=== PATIENT | male | born 1970 | race Caucasian/White ===

== ENCOUNTER 2016-12-14 21:20 | Emergency (ER) | payer OTHER, MEDICARE ==
[~2016-12-14 21:20] MED LIST: ACETAMINOPHEN-1 EAC3 PO; BENADRYL ALLERG25 MG PO; BENZTROPINE1 MG PO; BUSPIRONE HCL10 MG PO; CALCIPOTRIENE0.0051 TOP; DEXILANT60 M1 PO; EPI-PEN1 MG/ML IM; FOLIC ACID0.4 M1 PO; HALOBETASOL PRO0.05% TOP; KETOCONAZOLE 2120 ML TOP; MELOXICAM15 MG PO; METHOTREXATE2.5 M2 PO; NEURONTIN100 MG PO; PREDNISONE20 MG PO; SERTRALINE HYD100 MG PO; SUCRALFATE1 G1 PO; VALIUM5 M1 PO; VITAMIN D2000 UNI1 PO
[2016-12-14 21:24] VITALS: BP 154/70
--- NOTE | 2016-12-14 21:24 | ED AMS/SEIZURE/WEAK/DIZZY ---
History of Present Illness General Chief Complaint: Seizure Stated Complaint: BIBA ?SEIZURELIKE ACTIVITY WITH FALL Source: patient, family, old records Exam Limitations: no limitations Vital Signs & Intake/Output Vital Signs & Intake/Output Vital Signs Date Time Temp Pulse Resp B/P Pulse O2 O2 Flow FiO2 Ox Delivery Rate 12/14 2140 99 Room Air 12/14 2123 98.4 84 18 154/70 93 Room Air Allergies Coded Allergies: hydroxychloroquine (From PLAQUENIL) (Intermediate, SWEATS AND CHILLS 10/21/16) venom-honey bee (BEE VENOM (HONEY BEE)) (Intermediate, LOCAL REACTION 10/21/16) atenolol (Mild, RASH 10/21/16) labetalol (Mild, RASH 10/21/16) pimozide (From ORAP) (ELEVATED HR 10/21/16) lorazepam (Severe, HALLUCINATIONS AND AGRESSIVE BEHAVIOR 10/21/16) bupropion (Intermediate, TACHYCARDIA, ANXIETY 10/21/16) haloperidol (MAKES HIM JUMPY 10/21/16) Reconcile Medications Cholecalciferol (Vitamin D3) (Vitamin D) 2,000 UNIT TABLET 1 TAB PO DAILY SUPPLEMENT (Reported) Dexlansoprazole (Dexilant) 60 MG CAP.BP 1 CAP PO DAILY GI (Reported) Diazepam (Valium) 5 MG TABLET 1-2 TAB PO PRN ANXIETY (Reported) Folic Acid 0.4 MG TAB 3 TAB PO DAILY SUPPLEMENT (Reported) Meloxicam 15 MG TABLET 1 TAB PO DAILY ARTHRITIS (Reported) METHOTREXATE SODIUM (Methotrexate) 2.5 MG TABLET 3 TAB PO ONCE A WEEK ARTHRITIS (Reported) SERTRALINE HCL (Sertraline Hydrochloride) 100 MG TABLET 2 TAB PO DAILY MENTAL HEALTH (Reported) Sucralfate 1 GRAM TABLET 1 TAB PO 4 TIMES/DAY GI (Reported) Triage Nurses Notes Reviewed? yes Onset: Abrupt Duration: minute(s): (FEW) Timing: single episode today Injury Environment: home Severity: moderate No Modifying Factors: none HPI: This is a 46 year old male who presents to the ER with seizure like activity that started while in the grocery store buying milk. EMS arrived on scene and tried to give him valium which he refused. 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 He arrives awake, alert but slightly anxious. He states that he feels okay and wants to go home. He states he will call his to come and pick him up. Past History Travel History Traveled to [place] past 21 day No Medical History Any Pertinent Medical History? 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 No Review of Systems Review of Systems Constitutional: Denies: chills, fever. EENTM: Reports: no symptoms. Respiratory: Denies: cough, short of breath, sputum production. Cardiovascular: Denies: chest pain, palpitations. GI: Denies: abdominal pain. Genitourinary: Reports: no symptoms. Musculoskeletal: Reports: no symptoms. Skin: Reports: no symptoms. Neurological/Psychological: Reports: anxiety, tremors. Hematologic/Endocrine: Denies: bruising, bleeding, polyuria, polydipsia. Immunologic/Allergic: Denies: splenectomy. All Other Systems: Reviewed and Negative Physical Exam Physical Exam General Appearance: well developed/nourished, alert, awake, anxious, mild distress Head: atraumatic, normal appearance Eyes: Bilateral: normal appearance, PERRL, EOMI. Ears, Nose, Throat: normal pharynx, normal ENT inspection, hearing grossly normal Neck: normal inspection, supple, full range of motion Respiratory: normal breath sounds, chest non-tender, no respiratory distress Cardiovascular: regular rate/rhythm Peripheral Pulses: 2+ radial (R), 2+ radial (L) Gastrointestinal: soft, non-tender Neurologic/Psych: no motor/sensory deficits, awake, alert, oriented x 3, normal gait, anxious, stuttering Skin: intact, normal color, warm/dry Core Measures ACS in differential dx? No CVA/TIA Diagnosis: No Severe Sepsis Present: No Septic Shock Present: No Progress Differential Diagnosis: PSEUDOSEIZURES, ANXIETY Plan of Care: Current Medications Sig/Juli Start time Last Medication Dose Stop Time Status Admin Acetaminophen 650 MG ONCE ONE 12/14 2144 UNVr (Tylenol) 12/14 2145 Patient awake and alert on arrival, stuttering. He states that he does not want to take the oral volume. Patient requests 650 mg of Tylenol. He states that he is tired and wants to go home and wants to call his fiance. Patient feeling tired and wants to go home. He states that he has a history of pseudoseizures. His will pick him up as soon as he is discharged. (NALINI HERNANDEZ,ERIC) Initial ED EKG: none Departure Departure Time of Disposition: 2153 Disposition: HOME OR SELF CARE Condition: Stable Clinical Impression Primary Impression: Pseudoseizure Referrals: LUIS E HERNANDEZ,ELIZABETH Lugo (PCP/Family) Additional Instructions: Continue your regularly prescribed medications. Follow up with your doctor as needed. Departure Forms: Customer Survey General Discharge Information
== END 2016-12-14 22:06 ==
LOC: ERH 21:20
DX: R56.9 Unspecified convulsions (principal)
CPT/HCPCS: J3360

== ENCOUNTER 2016-12-22 10:58 | Emergency (ER) | payer OTHER, MEDICARE ==
[~2016-12-22] VITALS: Ht 190.5 cm; Wt 154.2 kg
--- NOTE | 2016-12-22 11:21 | ED AMS/SEIZURE/WEAK/DIZZY ---
History of Present Illness General Chief Complaint: Seizure Stated Complaint: BIBA FOR ?SEIZURE Source: patient, old records Exam Limitations: no limitations Vital Signs & Intake/Output Vital Signs & Intake/Output Vital Signs Date Time Temp Pulse Resp B/P Pulse O2 O2 Flow FiO2 Ox Delivery Rate 12/22 1239 96.0 79 18 138/73 96 Room Air 12/22 1101 97.9 93 20 134/76 92 Room Air Allergies Coded Allergies: hydroxychloroquine (From PLAQUENIL) (Intermediate, SWEATS AND CHILLS 12/22/16) venom-honey bee (BEE VENOM (HONEY BEE)) (Intermediate, LOCAL REACTION 12/22/16) atenolol (Mild, RASH 12/22/16) labetalol (Mild, RASH 12/22/16) pimozide (From ORAP) (ELEVATED HR 12/22/16) lorazepam (Severe, HALLUCINATIONS AND AGRESSIVE BEHAVIOR 12/22/16) bupropion (Intermediate, TACHYCARDIA, ANXIETY 12/22/16) haloperidol (MAKES HIM JUMPY 12/22/16) Reconcile Medications Cholecalciferol (Vitamin D3) (Vitamin D) 2,000 UNIT TABLET 1 TAB PO DAILY SUPPLEMENT (Reported) Dexlansoprazole (Dexilant) 60 MG CAP.DR.BP 1 CAP PO DAILY GI (Reported) Diazepam (Valium) 5 MG TABLET 1-2 TAB PO PRN ANXIETY (Reported) Folic Acid 0.4 MG TAB 3 TAB PO DAILY SUPPLEMENT (Reported) Meloxicam 15 MG TABLET 1 TAB PO DAILY ARTHRITIS (Reported) METHOTREXATE SODIUM (Methotrexate) 2.5 MG TABLET 3 TAB PO ONCE A WEEK ARTHRITIS (Reported) SERTRALINE HCL (Sertraline Hydrochloride) 100 MG TABLET 2 TAB PO DAILY MENTAL HEALTH (Reported) Sucralfate 1 GRAM TABLET 1 TAB PO 4 TIMES/DAY GI (Reported) Triage Note: PT BIBA TO [facility] RM 2 C/C SEIZURE. PMHX INCLUDES PSEUDO SEIZURES TRIGGERED BY STRESS. PER REPORT OF EMS PATIENT WAS PICKED UP FROM [facility]IGH [facility] WHERE HE WAS HAVING A MEETING REGUARDING HIS SON. STATES HE STOOD UP TO LEAVE AND HIS L LEG GAVE OUT ON HIM CAUSING HIM TO FALL BACKWARDS, HITTING HIS HEAD ON THE WALL AND FLOOR. COMPLAINS OF PAIN TO HEAD AND NECK BUT IS UNABLE TO FURTHER RATE OR DESCRIBE PAIN. DENIES LOC FROM FALL BUT DID HAVE SEIZURE AFTERWARDS. PT ALERT, VERBAL AND ANSWERS ALL QUESTIONS APPROPRIATELY ON ARRIVAL TO ER. COBY STUDENT AT BEDSIDE FOR EVAL ON ARRIVAL TO ER. Triage Nurses Notes Reviewed? yes HPI: 46-year-old male in by ambulance after a reported pseudoseizure. He was at a meeting at his son's school and after the meeting his left leg gave out on him due to his chronic nerve pain and he fell to the ground, he had a short pseudoseizure and struck the left side of the back of his head on the ground. Pseudoseizure lasted a few seconds and an ambulance was called to bring him to the hospital. He has complaints of mild left-sided posterior head pain and headache, mild nausea. No vomiting no confusion no loss of consciousness. He is well-known to this department for same. There are no other injuries no treatment thus far no modifying factors no photophobia. No weakness or numbness in the extremities (CINDY FERNANDEZ) Past History Travel History Traveled to [place] past 21 day No Medical History Any Pertinent Medical History? 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 No (CINDY FERNANDEZ) Review of Systems Review of Systems Constitutional: Reports: see HPI. EENTM: Reports: no symptoms. Respiratory: Reports: no symptoms. Cardiovascular: Reports: no symptoms. GI: Reports: no symptoms. Genitourinary: Reports: no symptoms. Musculoskeletal: Reports: no symptoms. Skin: Reports: no symptoms. Neurological/Psychological: Reports: see HPI, anxiety. Hematologic/Endocrine: Reports: no symptoms. Immunologic/Allergic: Reports: no symptoms. All Other Systems: Reviewed and Negative (CINDY FERNANDEZ) Physical Exam Physical Exam General Appearance: well developed/nourished Comments: Well-developed well-nourished person in no acute distress HEENT: Normal EENT exam, extraocular motion intact, no nystagmus. Pupils equally round and reactive to light. Nose is atraumatic. External auditory canal and Tympanic membranes clear. Pharynx normal. No swelling or edema. Tenderness to the posterior left-sided occipital region without swelling or ecchymosis Neck: Supple, no lymphadenopathy, normal range of motion . Mild pain with palpation of the left side of the neck paravertebral musculature Back: Nontender, no CVA tenderness. Cardiovascular: Regular rate and rhythms no murmurs, normal JVP Respiratory: Chest nontender. No respiratory distress. Breath sounds clear to auscultation bilaterally Abdomen: Soft, nontender nondistended, no appreciable organomegaly. Normal bowel sounds. No ascites Extremity: No edema, no calf tenderness to palpation, normal and equal pulses. Neuro: Alert oriented x3, motor sensory normal, cranial nerves II through XII grossly intact. Skin: No appreciable rash on exposed skin, skin is warm and dry. Psych: Mood and affect is normal, memory and judgment is normal. Core Measures ACS in differential dx? No CVA/TIA Diagnosis: No Severe Sepsis Present: No Septic Shock Present: No (CINDY FERNANDEZ) Progress Differential Diagnosis: arrythmia, alcohol intoxication, anemia, benign positional vertigo, CVA/stroke, dehydration, drug intoxication, encephalitis, electrolyte imbalance, GI bleed, hypoglycemia, hypoxia, intracranial Hem., intracranial mass/tumor, labrynthitis, meningitis, Meniere's disease, migraine BARRERA, multiple sclerosis, pneumonia, postural hypotension, presyncope, post- traumatic vertigo, sepsis, seizure disorder, subarachnoid Hem., UTI/pyelo, vertebrobasilar insuff Plan of Care: Current Medications Sig/Juli Start time Last Medication Dose Stop Time Status Admin Acetaminophen 650 MG ONCE ONE 12/220 UNVr (Tylenol) 12/22 1131 Ondansetron HCl 4 MG ONCE ONE 12/220 UNVr (Zofran) 12/22 1131 Initial ED EKG: none Comments: tx w tylenol and zofran. re evaluated and pt is sleeping in room, resting comfortably after 1 hr of monitoring. barrera has improved, nausea resolved. i do not feel workup or ct of head is indicated at this time. he will return w any concerns. (CINDY FERNANDEZ) Departure Departure Disposition: HOME OR SELF CARE Condition: Stable Clinical Impression Primary Impression: Pseudoseizure Secondary Impressions: Fall Qualifiers: Encounter type: initial encounter Qualified Code: W19.XXXA - Unspecified fall, initial encounter Minor head injury Qualifiers: Encounter type: initial encounter Qualified Code: S00.90XA - Unspecified superficial injury of unspecified part of head, initial encounter Referrals: ELIZABETH KIMBROUGH MD (PCP/Family) Additional Instructions: Return to the emergency room if you're feeling worsening or severe headaches, nausea, vomiting, confusion. You may take Tylenol for pain. Follow-up with your doctor if you're not feeling any better in the next 3-5 days. Departure Forms: Customer Survey General Discharge Information (CINDY FERNANDEZ) PA/BYPRODUCTS EXTRACTOR Co-Sign Statement Statement: ED Attending supervision documentation- [] I saw and evaluated the patient. I have also reviewed all the pertinent lab results and diagnostic results. I agree with the findings and the plan of care as documented in the PA's/BYPRODUCTS EXTRACTOR's documentation. [X] I have reviewed the ED Record and agree with the PA's/BYPRODUCTS EXTRACTOR's documentation. [] Additions or exceptions (if any) to the PAs/BYPRODUCTS EXTRACTOR's note and plan are summarized below: [] (HAN SALOMON DO)
[2016-12-22 12:39] VITALS: BP 138/73
== END 2016-12-22 12:45 ==
LOC: ERH 10:58
DX: G40.89 Other seizures (principal); S09.90XA Unspecified injury of head, initial encounter; W19.XXXA Unspecified fall, initial encounter
CPT/HCPCS: 96374; J2405

== ENCOUNTER 2017-02-17 15:09 | Emergency (ER) | payer OTHER, MEDICARE ==
[~2017-02-17] VITALS: Ht 190.5 cm; Wt 149.7 kg
[2017-02-17 15:19] VITALS: BP 156/80
--- NOTE | 2017-02-17 16:31 | ED GENERAL ADULT ---
History of Present Illness General Chief Complaint: General Adult Stated Complaint: MED REACTION Source: patient, family, old records Exam Limitations: no limitations Vital Signs & Intake/Output Vital Signs & Intake/Output Vital Signs Date Time Temp Pulse Resp B/P Pulse O2 O2 Flow FiO2 Ox Delivery Rate 02/17 1638 Room Air 02/17 1519 98.2 92 18 156/80 98 Room Air Allergies Coded Allergies: hydroxychloroquine (From PLAQUENIL) (Intermediate, SWEATS AND CHILLS 12/22/16) venom-honey bee (BEE VENOM (HONEY BEE)) (Intermediate, LOCAL REACTION 12/22/16) atenolol (Mild, RASH 12/22/16) labetalol (Mild, RASH 12/22/16) pimozide (From ORAP) (ELEVATED HR 12/22/16) lorazepam (Severe, HALLUCINATIONS AND AGRESSIVE BEHAVIOR 12/22/16) bupropion (Intermediate, TACHYCARDIA, ANXIETY 12/22/16) haloperidol (MAKES HIM JUMPY 12/22/16) Reconcile Medications Cholecalciferol (Vitamin D3) (Vitamin D) 2,000 UNIT TABLET 1 TAB PO DAILY SUPPLEMENT (Reported) Dexlansoprazole (Dexilant) 60 MG CAP.BP 1 CAP PO DAILY GI (Reported) Diazepam (Valium) 5 MG TABLET 1-2 TAB PO PRN ANXIETY (Reported) Folic Acid 0.4 MG TAB 3 TAB PO DAILY SUPPLEMENT (Reported) Meloxicam 15 MG TABLET 1 TAB PO DAILY ARTHRITIS (Reported) METHOTREXATE SODIUM (Methotrexate) 2.5 MG TABLET 3 TAB PO ONCE A WEEK ARTHRITIS (Reported) SERTRALINE HCL (Sertraline Hydrochloride) 100 MG TABLET 2 TAB PO DAILY MENTAL HEALTH (Reported) Sucralfate 1 GRAM TABLET 1 TAB PO 4 TIMES/DAY GI (Reported) Triage Note: RECEIVED 46 YO MALE RECENTLY D/C'D FROM [facility] THIS MONDAY, HAD MEDS RE-ADJUSTED. PT REPORTS FEELING OFF/FUNNY, LIKE EVERYTHING IS NOT CONNECTED RIGHT. PT DENIES SI/HI. PT REPORTS COMBINATION OF PHYSICAL AND MENTAL, FEELS OFF BALANCE, HEAD IS FOGGY. Triage Nurses Notes Reviewed? yes HPI: Patient with a history of anxiety and pseudoseizure, presents not feeling well. He states he feels like he is in a fog. He had a recent admission to [facility] behavioral health care inpatient department on January 29 and he had a significant change in his medication. Previously he was on Zoloft and Valium as needed and currently, his medication was changed to now he is currently on an escalating dose of lithium ER and immediate release, Seroquel twice a day, gabapentin twice a day, methotrexate and DEXILANT, . He feels as though the medication is too much for him. He feels groggy and having difficult time functioning and feels as though something may be wrong with him because of the medication. He denies any fever or flulike illness. He denies any numbness or focal weakness. He states his appetite has been good. He states he has a history of elevated LFTs (CINDY FERNANDEZ) Past History Travel History Traveled to [place] past 21 day No Medical History Any Pertinent Medical History? 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 No (CINDY FERNANDEZ) Review of Systems Review of Systems Constitutional: Reports: see HPI. EENTM: Reports: no symptoms. Respiratory: Reports: no symptoms. Cardiovascular: Reports: no symptoms. GI: Reports: no symptoms. Genitourinary: Reports: no symptoms. Musculoskeletal: Reports: no symptoms. Skin: Reports: no symptoms. Neurological/Psychological: Reports: see HPI. Hematologic/Endocrine: Reports: no symptoms. Immunologic/Allergic: Reports: no symptoms. All Other Systems: Reviewed and Negative (CINDY FERNANDEZ) Physical Exam Physical Exam General Appearance: well developed/nourished Comments: Well-developed well-nourished person in no acute distress HEENT: Normal EENT exam, extraocular motion intact, no nystagmus. Pupils equally round and reactive to light. Nose is atraumatic. Pharynx normal. No swelling or edema. Neck: Supple, no lymphadenopathy, normal range of motion without pain or tenderness Back: Nontender, no CVA tenderness. Full range of motion Cardiovascular: Regular rate and rhythms no murmurs, normal JVP Respiratory: Chest nontender. No respiratory distress. Breath sounds clear to auscultation bilaterally Abdomen: Obese, Soft, nontender nondistended, no appreciable organomegaly. Normal bowel sounds. No ascites Extremity: No edema, no calf tenderness to palpation, normal and equal pulses. Neuro: Gait is normal. Alert oriented x3, motor sensory normal, cranial nerves II through XII grossly intact. Skin: No appreciable rash on exposed skin, skin is warm and dry. Psych: Mood and affect is normal, memory and judgment is normal. Core Measures ACS in differential dx? No CVA/TIA Diagnosis: No Severe Sepsis Present: No Septic Shock Present: No (CINDY FERNANDEZ) Progress Differential Diagnoses I considered the following diagnoses in my evaluation of the patient: Plan of Care: Orders Procedure Date/time Status LITHIUM 02/17 1625 Complete COMPREHENSIVE METABOLIC PANEL 02/17 1625 Complete CBC WITHOUT DIFFERENTIAL 02/17 1625 Complete Laboratory Tests 02/17/17 1632: Anion Gap 11, Estimated GFR > 60, BUN/Creatinine Ratio 21.3, Glucose 114 H, Calcium 9.3, Total Bilirubin 0.4, AST 50, ALT 94 H, Alkaline Phosphatase 93, Total Protein 7.3, Albumin 4.0, Globulin 3.3, Albumin/Globulin Ratio 1.2, CBC w Diff NO MAN DIFF REQ, RBC 4.78, MCV 89.9, MCH 29.6, RDW 13.4, MPV 8.6, Gran % 56.2, Lymphocytes % 34.8, Monocytes % 6.7, Eosinophils % 2.0, Basophils % 0.3, Absolute Granulocytes 4.1, Absolute Lymphocytes 2.6, Absolute Monocytes 0.5, Absolute Eosinophils 0.2, Absolute Basophils 0, PUBS MCHC 32.9 L, [place] 0.4 L Initial ED EKG: none Comments: Laboratory values are unremarkable. [place] level is subtherapeutic. Kidney function is normal. Likely patient is having an adverse reaction to the medication (likely Seroquel), possibly causing drowsiness and lethargy as he has fallen asleep in the stretcher here in the emergency department as well. I discussed this with patient and his , I recommended they call his mental health physician for further evaluation and possible medication adjustment. (CINDY FERNANDEZ) Departure Departure Disposition: HOME OR SELF CARE Condition: Stable Clinical Impression Primary Impression: Adverse reaction to psychostimulant drug Referrals: ELIZABETH KIMBROUGH MD (PCP/Family) Additional Instructions: Please follow up with your mental health physician for possible adjustments in her medication due to adverse reaction. Departure Forms: Customer Survey General Discharge Information (CINDY FERNANDEZ) PA/LICENSED MENTAL HEALTH COUNSELOR Co-Sign Statement Statement: ED Attending supervision documentation- [] I saw and evaluated the patient. I have also reviewed all the pertinent lab results and diagnostic results. I agree with the findings and the plan of care as documented in the PA's/LICENSED MENTAL HEALTH COUNSELOR's documentation. [x] I have reviewed the ED Record and agree with the PA's/LICENSED MENTAL HEALTH COUNSELOR's documentation. [] Additions or exceptions (if any) to the PAs/LICENSED MENTAL HEALTH COUNSELOR's note and plan are summarized below: [] (HAN SALOMON DO) Critical Care Note Critical Care Note Critical Care Time: non-applicable (CINDY FERNANDEZ)
[2017-02-17 16:51] LABS: ABSOLUTE BASOPHIL COUNT 0 /CUMM (0.0-0.2); ABSOLUTE EOSINOPHIL COUNT 0.2 /CUMM (0.0-0.7); ABSOLUTE GRANULOCYTE CT 4.1 /CUMM (1.4-6.5); ABSOLUTE LYMPH COUNT 2.6 /CUMM (1.2-3.4); ABSOLUTE MONOCYTE COUNT 0.5 /CUMM (0.10-0.60); BASOPHIL % 0.3 % (0.0-2.0); GRANULOCYTE % 56.2 % (42.2-75.2); MEAN CORPUSCULAR HGB 29.6 PG (27.0-31.0); MEAN CORPUSCULAR HGB CONC 32.9 G/DL (33.0-37.0); MEAN CORPUSCULAR VOLUME 89.9 FL (80.0-94.0); MEAN PLATELET VOLUME 8.6 FL (7.4-10.4); PLATELET COUNT 314 /CUMM (130-400); RBC DISTRIBUTION WIDTH 13.4 % (11.5-14.5); RED BLOOD CELL CT 4.78 /CUMM (4.70-6.10); WHITE BLOOD CELL COUNT 7.4 /CUMM (4.8-10.8)
[2017-02-17 17:01] LABS: LITHIUM 0.4 mmol/L (0.6-1.2)
== END 2017-02-17 17:52 ==
LOC: ERH 15:09
PROVIDERS: Physician Assistant Surgical
DX: T43.605A Adverse effect of unspecified psychostimulants, initial encounter (principal)

== ENCOUNTER 2017-02-27 13:00 | Emergency (ER) | payer OTHER, MEDICARE ==
[2017-02-27 15:31] LABS: ABSOLUTE BASOPHIL COUNT 0 /CUMM (0.0-0.2); ABSOLUTE EOSINOPHIL COUNT 0.1 /CUMM (0.0-0.7); ABSOLUTE GRANULOCYTE CT 5.6 /CUMM (1.4-6.5); ABSOLUTE LYMPH COUNT 2.4 /CUMM (1.2-3.4); ABSOLUTE MONOCYTE COUNT 0.7 /CUMM (0.10-0.60); BASOPHIL % 0.4 % (0.0-2.0); EOSINOPHIL % 1.4 % (0-5); GRANULOCYTE % 63.4 % (42.2-75.2); HEMATOCRIT 42.3 % (42-52); MEAN CORPUSCULAR HGB 29.4 PG (27.0-31.0); MEAN CORPUSCULAR HGB CONC 32.8 G/DL (33.0-37.0); MEAN CORPUSCULAR VOLUME 89.9 FL (80.0-94.0); MEAN PLATELET VOLUME 8.3 FL (7.4-10.4); PLATELET COUNT 349 /CUMM (130-400); RED BLOOD CELL CT 4.71 /CUMM (4.70-6.10); WHITE BLOOD CELL COUNT 8.9 /CUMM (4.8-10.8)
--- NOTE | 2017-02-27 15:39 | ED GENERAL ADULT ---
History of Present Illness General Chief Complaint: Chest Pain Stated Complaint: CHEST PAIN Source: patient, family Exam Limitations: no limitations Vital Signs & Intake/Output Vital Signs & Intake/Output Vital Signs Date Time Temp Pulse Resp B/P Pulse O2 O2 Flow FiO2 Ox Delivery Rate 02/27 1937 97.0 82 18 118/73 98 Room Air 02/27 1728 96.9 85 16 117/70 97 Room Air 02/27 1545 Room Air 02/27 1307 98.0 90 20 141/90 97 Room Air Allergies Coded Allergies: hydroxychloroquine (From PLAQUENIL) (Intermediate, SWEATS AND CHILLS 12/22/16) venom-honey bee (BEE VENOM (HONEY BEE)) (Intermediate, LOCAL REACTION 12/22/16) atenolol (Mild, RASH 12/22/16) labetalol (Mild, RASH 12/22/16) pimozide (From ORAP) (ELEVATED HR 12/22/16) lorazepam (Severe, HALLUCINATIONS AND AGRESSIVE BEHAVIOR 12/22/16) bupropion (Intermediate, TACHYCARDIA, ANXIETY 12/22/16) haloperidol (MAKES HIM JUMPY 12/22/16) Reconcile Medications Cholecalciferol (Vitamin D3) (Vitamin D) 2,000 UNIT TABLET 1 TAB PO DAILY SUPPLEMENT (Reported) Dexlansoprazole (Dexilant) 60 MG CAP.BP 1 CAP PO DAILY GI (Reported) Folic Acid 0.4 MG TABLET 3 TAB PO DAILY SUPPLEMENT (Reported) Gabapentin 100 MG CAPSULE 1 CAP PO BID UNKNOWN (Reported) [place] Carbonate 300 MG CAPSULE 1 CAP PO QAM MENTAL HEALTH (Reported) [place] Carbonate ([place] Carbonate ER) 450 MG TABLET.ER 900 MG PO QPM MENTAL HEALTH (Reported) Methotrexate 2.5 MG TABLET 3 TAB PO QWED PSORIATIC ARTHRITIS (Reported) Quetiapine Fumarate 50 MG TABLET 1 TAB PO BID MENTAL HEALTH (Reported) Quetiapine Fumarate 200 MG TABLET 1 TAB PO QPM MENTAL HEALTH (Reported) Triage Note: PT PRESENTS TO ER C/O OF MIDSTERNAL CHEST PAIN THAT STARTED AT WORK AFTER HE GOT UPSET. PTS THOUGHTS ARE VERY SCATTERED. PT STATES HE WAS RECENTLY STARTED ON LITHIUM AND SEROQUEL AND HE FEELS MORE EVANS. PT DENIES SI/HI Triage Nurses Notes Reviewed? yes Onset: Abrupt Duration: hour(s): Timing: recent history HPI: 02/27/17 4 pm This is a 45-year-old male presents to the emergency department complaining of chest pain. The patient states that he was just returning to work today. He has a history of a seizure disorder and says he is on medications that have made him seizure-free but that he's been very tired. He said he was at work and was upset with the customer that was irritating to the staff. He developed an episode of chest pain; pressure-like. It lasted approximately 20 minutes. Happened approximately 3 hours prior to arrival. The onset of the symptoms were abrupt, the duration was just today, the severity is significant; as his symptoms required him to come to the emergency department for care. On physical exam he does have palpable chest wall tenderness. Past History Travel History Traveled to [place] past 21 day No Medical History Any Pertinent Medical History? 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 No Review of Systems Review of Systems Constitutional: Denies: fever. EENTM: Denies: visual changes. Respiratory: Denies: short of breath. Cardiovascular: Reports: chest pain. GI: Denies: abdominal pain. Genitourinary: Reports: no symptoms. Musculoskeletal: Reports: no symptoms. Skin: Reports: no symptoms. Neurological/Psychological: Reports: see HPI. Denies: headache. Hematologic/Endocrine: Reports: no symptoms. Physical Exam Physical Exam General Appearance: well developed/nourished, alert, awake, anxious, mild distress Head: atraumatic, normal appearance Eyes: Bilateral: normal appearance, PERRL, EOMI. Ears, Nose, Throat: normal pharynx, normal ENT inspection Neck: normal inspection, supple Respiratory: normal breath sounds, no respiratory distress, chest wall tenderness Cardiovascular: regular rate/rhythm Peripheral Pulses: 4+ radial (R), 4+ radial (L) Gastrointestinal: soft, non-tender Back: normal inspection, normal range of motion Extremities: normal inspection, normal range of motion, no edema Neurologic/Psych: no motor/sensory deficits, awake, alert, oriented x 3 Skin: intact, normal color, warm/dry Core Measures ACS in differential dx? No CVA/TIA Diagnosis: No Severe Sepsis Present: No Septic Shock Present: No Progress Differential Diagnoses I considered the following diagnoses in my evaluation of the patient: [Acute coronary syndrome, pneumothorax, adverse drug reaction, anxiety, GERD] Plan of Care: Orders Procedure Date/time Status TROPONIN LEVEL 02/27 182 Complete EKG 02/27 1820 Active TROPONIN LEVEL 02/27 1509 Complete LITHIUM 02/27 1509 Complete COMPREHENSIVE METABOLIC PANEL 02/27 1509 Complete CBC WITHOUT DIFFERENTIAL 02/27 1509 Complete EKG 02/27 1302 Active Laboratory Tests 02/27/17 1820: Troponin I < 0.01 02/27/17 1519: Anion Gap 8, Estimated GFR > 60, BUN/Creatinine Ratio 17.5, Glucose 96, Calcium 9.4, Total Bilirubin 0.4, AST 34, ALT 73 H, Alkaline Phosphatase 90, Troponin I < 0.01, Total Protein 7.5, Albumin 4.2, Globulin 3.3, Albumin/Globulin Ratio 1.3 , CBC w Diff NO MAN DIFF REQ, RBC 4.71, MCV 89.9, MCH 29.4, RDW 14.0, MPV 8.3, Gran % 63.4, Lymphocytes % 27.2, Monocytes % 7.6, Eosinophils % 1.4, Basophils % 0.4, Absolute Granulocytes 5.6, Absolute Lymphocytes 2.4, Absolute Monocytes 0.7 H, Absolute Eosinophils 0.1, Absolute Basophils 0, PUBS MCHC 32.8 L, [place] 0.6 CXR Impression: no acute abnormality Initial ED EKG: sinus tachycardia Departure Departure Disposition: STILL A PATIENT Condition: Stable Clinical Impression Primary Impression: Chest pain Referrals: LUIS E HERNANDEZ,ELIZABETH Lugo (PCP/Family) Departure Forms: Customer Survey General Discharge Information Comments 02/27/17 The patient was placed on a monitor. Labs were sent. EKG revealed sinus tachycardia; no significant change from the prior tracing. 02/27/17 Patient with 2 negative troponins, EKG repeated is unchanged. He's pain-free now the patient will be discharged and follow up with his doctor this week Chest x-ray results shown below- PATIENT: CINDY LAGUNAS PRESENT AGE: 46 PATIENT ACCOUNT NO: [id number] : 72 LOCATION: [facility] ORDERING PHYSICIAN: HAN SALOMON DO SERVICE DATE: 02/27/17-1805 EXAM TYPE: RAD - XRY-PORTABLE CHEST XRAY EXAMINATION: XR PORTABLE CHEST CLINICAL INFORMATION: Chest pain. COMPARISON: Chest x-ray 03/26/2012. TECHNIQUE: Portable AP view of the chest was obtained. FINDINGS: The heart is normal in size. The lungs are hypoexpanded. There is no congestion or focal consolidation. The bony thorax is unremarkable. IMPRESSION: No acute cardiopulmonary process. DICTATED BY: TENNILLE MARTINEZ MD DATE/TIME DICTATED:02/27/171644 POLICE CADET:DANITA DATE/TIME TRANSCRIBED:02/27/171644 CONFIDENTIAL, DO NOT COPY WITHOUT APPROPRIATE AUTHORIZATION. <Electronically signed in Other Vendor System> SIGNED BY: TENNILLE MARTINEZ MD [id number] Critical Care Note Critical Care Note Critical Care Time: non-applicable
[2017-02-27 15:56] LABS: LITHIUM 0.6 mmol/L (0.6-1.2)
[2017-02-27] MEDS ORDERED: QUETIAPINE FUMA50 M1 PO (16:05)
[2017-02-27] MEDS ORDERED: QUETIAPINE FUM200 M1 PO (16:05)
[2017-02-27] MEDS ORDERED: LITHIUM CARBON450 M1 PO (16:08)
[2017-02-27] MEDS ORDERED: LITHIUM CARBON300 M4 PO (16:08)
[2017-02-27] MEDS ORDERED: GABAPENTIN100 M2 PO (16:09)
--- NOTE | 2017-02-27 16:50 | RADIOLOGY REPORT ---
EXAMINATION: XR PORTABLE CHEST CLINICAL INFORMATION: Chest pain. COMPARISON: Chest x-ray 03/26/2012. TECHNIQUE: Portable AP view of the chest was obtained. FINDINGS: The heart is normal in size. The lungs are hypoexpanded. There is no congestion or focal consolidation. The bony thorax is unremarkable. IMPRESSION: No acute cardiopulmonary process.
[2017-02-27 19:37] VITALS: BP 118/73
== END 2017-02-27 19:51 ==
LOC: ERH 13:00
PROVIDERS: Physician Assistant
DX: R07.9 Chest pain, unspecified (principal)
CPT/HCPCS: 93005; 93010

== ENCOUNTER 2017-04-08 16:38 | Emergency (ER) | payer OTHER, MEDICARE ==
[~2017-04-08] VITALS: Ht 190.5 cm; Wt 147.4 kg
[~2017-04-08 16:38] MED LIST changes: +GABAPENTIN100 M2 PO; +LITHIUM CARBON300 M4 PO; +LITHIUM CARBON450 M1 PO; +QUETIAPINE FUM200 M1 PO; +QUETIAPINE FUMA50 M1 PO
[2017-04-08 16:44] VITALS: BP 110/77
--- NOTE | 2017-04-08 17:01 | ED INFLUENZA/URI COMPLAINT ---
History of Present Illness General Chief Complaint: Upper Respiratory Sx/Fever Stated Complaint: COUGH,CHEST CONGESTION,FEVER,BODY ACHES Source: patient, old records Exam Limitations: no limitations Vital Signs & Intake/Output Vital Signs & Intake/Output Vital Signs Date Time Temp Pulse Resp B/P B/P Pulse O2 O2 Flow FiO2 Mean Ox Delivery Rate 04/08 1644 96.4 99 20 110/77 96 Room Air Allergies Coded Allergies: hydroxychloroquine (From PLAQUENIL) (Intermediate, SWEATS AND CHILLS 12/22/16) venom-honey bee (BEE VENOM (HONEY BEE)) (Intermediate, LOCAL REACTION 12/22/16) atenolol (Mild, RASH 12/22/16) labetalol (Mild, RASH 12/22/16) pimozide (From ORAP) (ELEVATED HR 12/22/16) lorazepam (Severe, HALLUCINATIONS AND AGRESSIVE BEHAVIOR 12/22/16) bupropion (Intermediate, TACHYCARDIA, ANXIETY 12/22/16) haloperidol (MAKES HIM JUMPY 12/22/16) Triage Note: PT TO ED C/O URI S/S, CONGESTION X A FEW DAYS. ALSO C/O FEELING ACHY. AFEBRILE. Triage Nurses Notes Reviewed? yes Onset: Gradual Duration: day(s): (5), constant Timing: recent history Severity: mild, moderate Severity Numbers: 6 Prior Episodes/Possible Cause: occassional episodes No Modifying Factors: none Associated Symptoms: muscle aches, nasal congestion, nasal drainage HPI: 46-year-old male presents to ER for evaluation complaining of generalized body aches rhinorrhea congestion for the past 5 days. He's not attempted taking any [id number] medications for his symptoms. Patient reports the nasal congestion. His son is home sick with bronchitis however he denies cough. No chest pain abdominal pain nausea vomiting or diarrhea. No modifying factors or associated symptoms otherwise. no sore throat, ear pain, no recent travel, tick or insect bites (MAY SHEETS) Reconcile Medications Amoxicillin/Potassium Clav (Augmentin 875-125 Tablet) 875 MG-125 MG TABLET 1 TAB PO BID sinusitis Cholecalciferol (Vitamin D3) (Vitamin D) 2,000 UNIT TABLET 1 TAB PO DAILY SUPPLEMENT (Reported) Dexlansoprazole (Dexilant) 60 MG CAP. 1 CAP PO DAILY GI (Reported) Folic Acid 0.4 MG TABLET 3 TAB PO DAILY SUPPLEMENT (Reported) Gabapentin 100 MG CAPSULE 1 CAP PO BID UNKNOWN (Reported) [place] Carbonate 300 MG CAPSULE 1 CAP PO QAM MENTAL HEALTH (Reported) [place] Carbonate ([place] Carbonate ER) 450 MG TABLET.ER 900 MG PO QPM MENTAL HEALTH (Reported) Methotrexate 2.5 MG TABLET 3 TAB PO QWED PSORIATIC ARTHRITIS (Reported) Mometasone Furoate (Nasonex) 50 MCG SPRAY.PUMP 2 SPRAY NASB DAILY rhinitis Quetiapine Fumarate 50 MG TABLET 1 TAB PO BID MENTAL HEALTH (Reported) Quetiapine Fumarate 200 MG TABLET 1 TAB PO QPM MENTAL HEALTH (Reported) (DOROTHY HERNANDEZ,ANN-MARIE Pagan) Past History Travel History Traveled to [place] past 21 day No Medical History Any Pertinent Medical History? 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 No (MAY SHEETS) Review of Systems Review of Systems Constitutional: Reports: see HPI. All Other Systems: Reviewed and Negative Comments Review of systems: See HPI, All other systems negative. Constitutional, no chills no fever, no malaise HEENT: No visual changes no sore throat congestion, no ear pain Cardiovascular: No chest pain , no palpitation Skin: no rashes, no change in skin Respiratory: No dyspnea no cough GI: No nausea no vomiting, no diarrhea, : No dysuria Muscle skeletal: No joint pain, no joint swelling, no back pain, no neck pain, Neurologic: no headache Psych: No stress Heme/endocrine: No bruising Immunology: No lymphadenopathy (MAY SHEETS) Physical Exam Physical Exam General Appearance: well developed/nourished, no apparent distress, alert, awake Ears, Nose, Throat: normal ENT inspection, moist mucous membrane Comments: Well-developed well-nourished patient in no apparent distress. Head/Face: Atraumatic, no maxillary/frontal sinus tenderness, no facial swelling Eyes: PERRL, EOMI, no conjunctival injection. No nystagmus Ear:External auditory canal and Tympanic membranes clear, no erythema, no FB. Nose: atraumatic.Normal inspection: No bleeding, no septal hematoma Throat: Moist mucous membranes.Pharynx normal. No pharyngeal erythema/exudate seen. No stridor/drooling or assymetry. No swelling or edema. Neck: Supple, no lymphadenopathy, FROM Back: FROM Cardiovascular: Regular rate and rhythms no murmurs rubs or gallops, Respiratory: Chest nontender.There were no bony deformities, no asymmetry. No respiratory distress. Patient speaking in full complete sentences. Breath sounds clear to auscultation bilaterally: NO W/R/R Extremities: full range of motion Neuro: awake, alert, and oriented to person, place and time. There were no obvious focal neurologic abnormalities. Skin: Warm & dry;No appreciable rash on exposed skin Psych: Mood affect normal, normal memory normal judgment. Core Measures Severe Sepsis Present: No Septic Shock Present: No (MAY SHEETS) Progress Differential Diagnosis: influenza, pneumonia, pharyngitis, sinusitis, bronchitis Plan of Care: I had an extensive conversation regarding need for close follow up with their primary care physician this week as well as return precautions. I answered all of their questions, they feel comfortable with the plan and follow-up care. I discussed the medications that they will receive with the patient. I gave them signs and symptoms that could indicate an adverse reaction. I have advised them to limit their activities until they can see how they respond to the medication. Initial ED EKG: none (MAY SHEETS) Departure Departure Time of Disposition: 1705 Disposition: HOME OR SELF CARE Condition: Stable Clinical Impression Primary Impression: URI (upper respiratory infection) Referrals: LUIS E HERNANDEZ,ELIZABETH Lugo (PCP/Family) Additional Instructions: zpak as directed, nasonex nasal spray. these were sent to [facility] in [place]. tylenol or motrin every 4-6 hours. drink plenty of fluids. return with any concerns Departure Forms: Customer Survey General Discharge Information Prescriptions: Current Visit Scripts Mometasone Furoate (Nasonex) 2 SPRAY NASB DAILY #1 INHAL Amoxicillin/Potassium Clav (Augmentin 875-125 Tablet) 1 TAB PO BID #14 TAB (MAY SHEETS) PA/STUDENT MINISTRY PASTOR Co-Sign Statement Statement: ED Attending supervision documentation- [] I saw and evaluated the patient. I have also reviewed all the pertinent lab results and diagnostic results. I agree with the findings and the plan of care as documented in the PA's/STUDENT MINISTRY PASTOR's documentation. [X] I have reviewed the ED Record and agree with the PA's/STUDENT MINISTRY PASTOR's documentation. [] Additions or exceptions (if any) to the PAs/STUDENT MINISTRY PASTOR's note and plan are summarized below: [] (DOROTHY HERNANDEZ,ANN-MARIE Pagan)
[2017-04-08] MEDS ORDERED: NASONEX17 GM NASB (17:07)
[2017-04-08] MEDS ORDERED: ZITHROMAX250 M2 PO (17:07)
[2017-04-08] MEDS ORDERED: AUGMENTIN 875-1 EACH PO (17:44)
== END 2017-04-08 17:11 ==
LOC: ERH 16:38
DX: J06.9 Acute upper respiratory infection, unspecified (principal)

== ENCOUNTER 2017-04-21 11:35 | Emergency (ER) | payer OTHER, MEDICARE ==
[~2017-04-21] VITALS: Ht 188 cm; Wt 113.4 kg
[~2017-04-21 11:35] MED LIST changes: +AUGMENTIN 875-1 EACH PO; +NASONEX17 GM NASB; +ZITHROMAX250 M2 PO
--- NOTE | 2017-04-21 11:38 | ED GENERAL ADULT ---
History of Present Illness General Chief Complaint: Seizure Stated Complaint: JEFFREY SIBLEY Source: patient Exam Limitations: no limitations Vital Signs & Intake/Output Vital Signs & Intake/Output Vital Signs Date Time Temp Pulse Resp B/P B/P Pulse O2 O2 Flow FiO2 Mean Ox Delivery Rate 04/21 1720 90 16 129/74 97 Room Air 04/21 1633 98.0 92 17 158/78 94 Room Air 04/21 1325 97.9 81 18 151/85 100 Room Air 04/21 1307 96 Room Air 04/21 1148 97.7 97 18 164/76 95 Room Air Allergies Coded Allergies: hydroxychloroquine (From PLAQUENIL) (Intermediate, [place]WEATS [place] CHILLS 12/22/16) venom-honey bee (BEE VENOM (HONEY BEE)) (Intermediate, LOCAL REACTION 12/22/16) atenolol (Mild, RASH 12/22/16) labetalol (Mild, RASH 12/22/16) pimozide (From ORAP) (ELEVATED HR 12/22/16) lorazepam (Severe, HALLUCINATIONS AND AGRESSIVE BEHAVIOR 12/22/16) bupropion (Intermediate, TACHYCARDIA, ANXIETY 12/22/16) haloperidol (MAKES HIM JUMPY 12/22/16) Reconcile Medications Amoxicillin/Potassium Clav (Augmentin 875-125 Tablet) 875 MG-125 MG TABLET 1 TAB PO BID sinusitis Cholecalciferol (Vitamin D3) (Vitamin D) 2,000 UNIT TABLET 1 TAB PO DAILY SUPPLEMENT (Reported) Dexlansoprazole (Dexilant) 60 MG CAP.BP 1 CAP PO DAILY GI (Reported) Folic Acid 0.4 MG TABLET 3 TAB PO DAILY SUPPLEMENT (Reported) Gabapentin 100 MG CAPSULE 1 CAP PO BID UNKNOWN (Reported) [place] Carbonate 300 MG CAPSULE 1 CAP PO QAM MENTAL HEALTH (Reported) [place] Carbonate ([place] Carbonate ER) 450 MG TABLET.ER 900 MG PO QPM MENTAL HEALTH (Reported) Methotrexate 2.5 MG TABLET 3 TAB PO QWED PSORIATIC ARTHRITIS (Reported) Mometasone Furoate (Nasonex) 50 MCG SPRAY.PUMP 2 SPRAY NASB DAILY rhinitis Quetiapine Fumarate 50 MG TABLET 1 TAB PO BID MENTAL HEALTH (Reported) Quetiapine Fumarate 200 MG TABLET 1 TAB PO QPM MENTAL HEALTH (Reported) Triage Nurses Notes Reviewed? yes Onset: Gradual Timing: recent history Injury Environment: home Severity: moderate No Modifying Factors: none HPI: Patient is a 46-year-old male with history of pseudoseizures, lithium presenting to the emergency department via EMS with chief complaint of seizure 20 minutes. Patient was at home according to the and started teasing. No falls or head trauma. His seizure would not stop so she called EMS. En route they gave him 5 mg of IM Versed. Patient is drowsy but arousable to verbal and tactile stimuli. Patient denying any pain. Reports fatigue. No chest pain or shortness of breath. Denies any falls. Denies urinary incontinence. No nausea or vomiting. (NORI BELL) Past History Travel History Traveled to [place] past 21 day No Medical History Any Pertinent Medical History? 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 No (NORI BELL) Review of Systems Review of Systems Constitutional: Reports: weakness. Comments Review of systems: See HPI, All other systems negative. PER AND EMS Constitutional, no chills fever or weight loss HEENT: No visual changes no sore throat no congestion Cardiovascular: No chest pain ,palpitation , orthopnea or ankle swelling Skin, no jaundice no rashes Respiratory: No dyspnea cough sputum or hemoptysis GI: No nausea no vomiting : No dysuria No hematuria Muscle skeletal: no back pain, no neck pain, Neurologic: No numbness Psych: No increased stress anxiety or depression,. Heme/endocrine: No bruising no bleeding no polyuria or polydipsia Immunology: No splenectomy or history of AIDS (NORI BELL) Physical Exam Physical Exam General Appearance: no apparent distress, obese, sleeping-a rousable to tactile stimuli Comments: Obese person in no acute distress HEENT:extraocular motion intact, no nystagmus. Pupils equally round and reactive to light and accommodation. Nose is atraumatic. External auditory canal and Tympanic membranes clear. Pharynx normal. No swelling or edema. Neck: Supple, no lymphadenopathy, normal range of motion without pain or tenderness Back: Nontender, no CVA tenderness. Cardiovascular: Regular rate and rhythms no murmurs rubs or gallops, normal JVP Respiratory: Chest nontender. No respiratory distress.breath sounds clear to auscultation bilaterally Abdomen: Soft, obese, nontender nondistended, no appreciable organomegaly. Normal bowel sounds. No ascites Extremity: No edema Neuro: drowsy, alert to person and place with tactile stimuliation. UNABLE TO FOLLOW NEURO EXAM Skin: No appreciable rash on exposed skin, skin is warm and dry. Psych: Mood and affect is normal, memory and judgment is normal. Core Measures ACS in differential dx? No CVA/TIA Diagnosis: No Severe Sepsis Present: No Septic Shock Present: No (ROSALINA TENORIO,NORI) Progress Differential Diagnoses I considered the following diagnoses in my evaluation of the patient: Pseudoseizure, medication noncompliance, electrolyte abnormality, intracranial hemorrhage Plan of Care: Orders Procedure Date/time Status URINALYSIS 04/21 1413 Complete Telemetry/Bottom Liner 04/21 1139 Active URINE DRUG SCREEN FOR ER ONLY 04/21 1139 Complete TROPONIN LEVEL 04/21 1139 Complete PROLACTIN 04/21 1139 Complete LITHIUM 04/21 1139 Complete COMPREHENSIVE METABOLIC PANEL 04/21 1139 Complete CBC WITHOUT DIFFERENTIAL 04/21 1139 Complete EKG 04/21 1137 Active Laboratory Tests 04/21/17 1445: Troponin I Cancelled 04/21/17 1428: Urine Opiates Screen < 100.00, Methadone Screen < 40, Barbiturate Screen < 60, Ur Phencyclidine Scrn < 6.00, Amphetamines Screen < 100, U Benzodiazepines Scrn > 800.0 H, Urine Cocaine Screen < 50, Urine Cannabis Screen < 5.00, Urine Color YEL, Urine Clarity CLEAR, Urine pH 6.0, Ur Specific [place] >= 1.030, Urine Protein NEG, Urine Ketones NEG, Urine Nitrite NEG, Urine Bilirubin NEG, Urine Urobilinogen 0.2, Ur Leukocyte Esterase NEG, Ur Microscopic SEDIMENT EXAMINED, Urine RBC 1-3, Urine WBC RARE, Ur Epithelial Cells RARE, Urine Bacteria RARE H, Urine Mucus RARE, Urine Hemoglobin SMALL H, Urine Glucose NEG 04/21/17 1145: Anion Gap 9, Estimated GFR > 60, BUN/Creatinine Ratio 21.4, Glucose 99, Calcium 9.5, Total Bilirubin 0.6, AST 37, ALT 79 H, Alkaline Phosphatase 93, Troponin I < 0.01, Total Protein 7.5, Albumin 4.3, Globulin 3.2, Albumin/Globulin Ratio 1.3 , Prolactin 9.0, CBC w Diff NO MAN DIFF REQ, RBC 4.62 L, MCV 90.7, MCH 30.5, RDW 13.4, MPV 8.5, Gran % 56.6, Lymphocytes % 35.1, Monocytes % 6.8, Eosinophils % 1.1, Basophils % 0.4, Absolute Granulocytes 4.1, Absolute Lymphocytes 2.6, Absolute Monocytes 0.5, Absolute Eosinophils 0.1, Absolute Basophils 0, PUBS MCHC 33.7, [place] 0.3 L Diagnostic Imaging: Viewed by Me: Radiology Read. Discussed w/RAD: Radiology Read. CXR Impression: no acute abnormality, no infiltrates Initial ED EKG: sinus rhythm at 96 bpm, incomplete right bundle-branch block Prior EKG: unchanged Comments: he was given 5 mg of Versed in route. He has been fatigued since arrival. Vitals are stable. 04/21/2017 5:07:34 PM patient is awake, alert and oriented 3. Neurologically intact. Patient reports he still feels slightly tired but has been improving. He was informed of all lab work results. They will follow up with the primary care physician. PT SAFE for discharge at this time. (NORI BELL) Departure Departure Disposition: HOME OR SELF CARE Condition: Stable Clinical Impression Primary Impression: Seizure Referrals: LUIS E HERNANDEZ,ELIZABETH Lugo (PCP/Family) Additional Instructions: Lopp with your primary care physician call to make an appointment. Increase fluids. Continue taking medications as previously prescribed. Return for worsening symptoms or concerns. Departure Forms: Customer Survey General Discharge Information (NORI BELL) PA/BRICKMASON CONTRACTOR Co-Sign Statement Statement: ED Attending supervision documentation- [] I saw and evaluated the patient. I have also reviewed all the pertinent lab results and diagnostic results. I agree with the findings and the plan of care as documented in the PA's/BRICKMASON CONTRACTOR's documentation. [X] I have reviewed the ED Record and agree with the PA's/BRICKMASON CONTRACTOR's documentation. [] Additions or exceptions (if any) to the PAs/BRICKMASON CONTRACTOR's note and plan are summarized below: [] (NALINI HERNANDEZ,ERIC) Critical Care Note Critical Care Note Critical Care Time: non-applicable (ROSALINA TENORIO,NORI)
[2017-04-21 12:07] LABS: ABSOLUTE BASOPHIL COUNT 0 /CUMM (0.0-0.2); ABSOLUTE EOSINOPHIL COUNT 0.1 /CUMM (0.0-0.7); ABSOLUTE GRANULOCYTE CT 4.1 /CUMM (1.4-6.5); ABSOLUTE LYMPH COUNT 2.6 /CUMM (1.2-3.4); ABSOLUTE MONOCYTE COUNT 0.5 /CUMM (0.10-0.60); BASOPHIL % 0.4 % (0.0-2.0); EOSINOPHIL % 1.1 % (0-5); GRANULOCYTE % 56.6 % (42.2-75.2); HEMATOCRIT 41.9 % (42-52); MEAN CORPUSCULAR HGB 30.5 PG (27.0-31.0); MEAN CORPUSCULAR HGB CONC 33.7 G/DL (33.0-37.0); MEAN CORPUSCULAR VOLUME 90.7 FL (80.0-94.0); MEAN PLATELET VOLUME 8.5 FL (7.4-10.4); PLATELET COUNT 339 /CUMM (130-400); RBC DISTRIBUTION WIDTH 13.4 % (11.5-14.5); RED BLOOD CELL CT 4.62 /CUMM (4.70-6.10); WHITE BLOOD CELL COUNT 7.3 /CUMM (4.8-10.8)
[2017-04-21 12:24] LABS: LITHIUM 0.3 mmol/L (0.6-1.2)
--- NOTE | 2017-04-21 12:56 | RADIOLOGY REPORT ---
EXAMINATION: XR CHEST CLINICAL INFORMATION: Seizure, evaluate for aspiration. COMPARISON: None TECHNIQUE: Portable 75 degrees AP view of the chest was obtained. FINDINGS: Lung volumes are diminished. Right paratracheal opacity is likely due to vessel crowding, however underlying adenopathy is not excluded. PA and lateral films when possible is recommended to further evaluate. The lungs and pleural spaces otherwise appear clear without evidence of congestion, consolidation, or significant appearing effusion or atelectasis. There is no evidence of pneumothorax or pulmonary edema. Included osseous structures appear largely unremarkable. IMPRESSION: Low lung volumes, no focal infiltrate to suggest aspiration.
[2017-04-21 17:20] VITALS: BP 129/74
== END 2017-04-21 17:45 ==
LOC: ERH 11:35
PROVIDERS: Physician Assistant
DX: R56.9 Unspecified convulsions (principal)
CPT/HCPCS: 80307; 81001; 93005; 93010; 96360; 96361

== ENCOUNTER 2017-12-28 19:17 | Inpatient (IN) | payer OTHER, MEDICARE ==
[~2017-12-28] VITALS: Ht 190.5 cm; Wt 154.2 kg
[~2017-12-28 19:17] MED LIST changes: +ABILIFY10 M1 PO; +CYCLOBENZAPRINE5 M2 PO; +DIAZEPAM5 M1 PO; +LITHIUM CARBON300 M6 PO; +MELOXICAM15 M1 PO; +PERCOCET 5-3251 EACH PO; +SERTRALINE HCL100 MG PO
--- NOTE | 2017-12-28 19:38 | ED PSYCHIATRIC COMPLAINT ---
See Addendum History of Present Illness General Chief Complaint: Psychiatric Related Complaint Stated Complaint: BIBA +SI Source: patient, old records, EMS Exam Limitations: no limitations Vital Signs & Intake/Output Vital Signs & Intake/Output Vital Signs Date Time Temp Pulse Resp B/P B/P Pulse O2 O2 Flow FiO2 Mean Ox Delivery Rate 01/01 0835 97.0 81 18 126/72 97 Room Air 01/01 0544 97.5 91 18 138/78 96 Room Air 01/01 0222 97.2 67 16 116/70 93 Room Air 01/01 0007 95.6 82 18 157/94 93 Room Air 12/31 2000 98.5 75 20 116/75 99 Room Air 12/31 1438 99.3 102 18 119/78 95 12/31 1134 98.0 88 16 129/82 95 Room Air Allergies Coded Allergies: hydroxychloroquine (From PLAQUENIL) (Intermediate, SWEATS AND CHILLS 12/22/16) venom-honey bee (BEE VENOM (HONEY BEE)) (Intermediate, LOCAL REACTION 12/22/16) atenolol (Mild, RASH 12/22/16) labetalol (Mild, RASH 12/22/16) pimozide (From ORAP) (ELEVATED HR 12/22/16) lorazepam (Severe, HALLUCINATIONS AND AGRESSIVE BEHAVIOR 12/22/16) bupropion (Intermediate, TACHYCARDIA, ANXIETY 12/22/16) divalproex sodium (From DEPAKOTE) (HALLUCINATIONS 10/03/17) haloperidol (MAKES HIM JUMPY 12/22/16) Reconcile Medications Aripiprazole (Abilify) 5 MG TABLET 1 TAB PO DAILY MENTAL HEALTH (Reported) Cholecalciferol (Vitamin D3) (Vitamin D) 2,000 UNIT TABLET 1 TAB PO DAILY SUPPLEMENT (Reported) Dexlansoprazole (Dexilant) 60 MG CAP.DRBrianBP 1 CAP PO DAILY GI (Reported) Diazepam 5 MG TABLET 1 TAB PO Q4 HRS NEEDED PRN SEIZURES (Reported) Folic Acid 0.4 MG TABLET 3 TAB PO DAILY SUPPLEMENT (Reported) Lamotrigine 25 MG TABLET 1 TAB PO QHS MENTAL HEALTH & SEIZURES (Reported) Meloxicam 15 MG TABLET 1 TAB PO DAILY PAIN/INFLAMMATION (Reported) Methotrexate 2.5 MG TABLET 3 TAB PO QWED PSORIATIC ARTHRITIS (Reported) Sertraline HCl 100 MG TABLET 2 TAB PO DAILY MENTAL HEALTH (Reported) Triage Note: PATIENT MARYJO FROM HOME. HX OF DEPRESSION, ANXIETY, AND SEIZURES. HE HAS BEEN OFF OF ABILIFY X 1 WEEK. NOW PRESENTS WITH UNCONTROLLABLE SHAKING. HE IS ALERT AND ORIENTED. ADMITS TO + SI. Triage Nurses Notes Reviewed? yes Onset: Abrupt Duration: week(s): (1), constant Timing: recent history Severity: moderate Severity Numbers: 7 Associated Symptoms: anxiety, suicidal ideation HPI: 47-year-old male with history of pseudoseizures presents to the emergency room for evaluation brought in by ambulance complaining worsening anxiety depression for the past few days. The patient states that this evening he was having thoughts of either cutting himself or overdosing on all of his medication. The patient states he has a history of suicidal ideation and years ago however never this severe. The patient is all by psychiatrist Dr. Michael and states that he recently had his medications adjusted including his Abilify dose being lowered and Lamictal being added. He states he does not feel like this is helping. No homicidal ideation. He denies tobacco or alcohol or drug use. (Quentin Sanchez) Past History Travel History Traveled to [place] past 21 day No Medical History Any Pertinent Medical History? see below for history Neurological: PSEUDO SEIZURES EENT: NONE Cardiovascular: hypertension Respiratory: NONE Gastrointestinal: NONE Hepatic: NONE Renal: ENLARGED PROSTATE Musculoskeletal: NONE Psychiatric: anxiety, depression, CONVERSION DISORDER PTSD OCD Endocrine: NONE Blood Disorders: NONE Cancer(s): NONE STRIPER/Reproductive: NONE History of MRSA: No History of VRE: No History of CDIFF: No Tetanus Vaccine: 08/09/15 Surgical History Surgical History: cholecystectomy Psychosocial History Who do you live with Significant Other What is your primary language [place] Family History Hx Contributory? No (Quentin Sanchez) Review of Systems Review of Systems Constitutional: Reports: see HPI. Comments Review of systems: See HPI, All other systems negative. Constitutional, no chills no fever HEENT: no sore throat no congestion Cardiovascular: No chest pain , no palpitation Skin: no rashes, no change in skin Respiratory: No dyspnea no cough no sputum GI: No nausea no vomiting, no diarrhea, : No dysuria Muscle skeletal: No joint pain, no back pain Neurologic: , no headache Psych: stress depression,. Heme/endocrine: No bruising Immunology: No lymphadenopathy (Quentin Sanchez) Physical Exam Physical Exam General Appearance: well developed/nourished, alert, awake, anxious Neurological/Psychiatric: no motor/sensory deficits, awake, anxious Comments: Well-developed well-nourished person in no acute distress HEENT: Normal EENT exam; PERRL, EOMI, no nystagmus. HEAD is atraumatic. moist mucous membranes. Neck: Supple, normal range of motion Back: Nontender, Full range of motion Cardiovascular: Regular rate and rhythms no murmurs rubs Respiratory: No respiratory distress. Patient speaking in full complete sentences. Breath sounds clear to auscultation bilaterally: NO W/R/R Abdomen: Soft, nontender nondistended, no appreciable organomegaly. Normal bowel sounds Extremity: No edema, full range of motion of extremities, Neuro: Alert oriented x3, motor sensory normal, cranial nerves II through XII grossly intact. There were no obvious focal neurologic abnormalities. Skin: No appreciable rash on exposed skin, skin is warm and dry. Psych: Anxious, memory and judgment is normal. SAD PERSONS SAD PERSONS Response Value Male Sex? yes 1 Age <19 or >45 years? yes 1 Depression/Hopelessness? yes 2 Social Support? has support 0 Stated Future Intent? yes 2 Total 6 SAD PERSONS Done? yes (Quentin Sanchez) Progress Differential Diagnosis: drug intoxication, drug withdrawal, electrolyte abnormality, DEPRESSION, ANXIETY Plan of Care: Orders Procedure Date/time Status Continuous Observation Monitor 01/01 0751 Active Continuous Observation Monitor 01/01 0500 Active Current Medications Sig/Juli Start time Last Medication Dose Stop Time Status Admin Ibuprofen 600 MG Q6P PRN 12/31 1600 AC 12/31 (Motrin) 1628 Omeprazole 40 MG DAILY AC 12/30 1337 UNVr 01/01 (Prilosec) 0602 Aripiprazole 5 MG QPM 12/29 220 UNVr 12/31 (Abilify) 2117 Lamotrigine 25 MG QPM 12/29 220 UNVr 12/31 (LaMICtal) 2117 Methotrexate 7.5 MG .[ON MONDAY] 12/29 1715 UNVr (Methotrexate 2.5MG Tab) Folic Acid 1 MG DAILY 12/29 1706 UNVr 01/01 (Folic Acid) 09 Sertraline HCl 150 MG DAILY 12/29 1705 UNVr 01/01 (Zoloft) 0902 Diazepam 5 MG Q4 HRS NEEDED PRN 12/29 0300 AC 01/01 (Valium) 0328 LABS ORDERED, CRISIS CONSULT ORDERED. CASE D/W AND SIGNED OUT TO DR MCCARTHY AT 100AM PENDING CRISIS EVAL (Quentin Sanchez) 7:10 AM 12/29 PATIENT SIGNED OUT TO ME BY DR MCCARTHY. PENDING CRISIS EVALUATION/DISPOSITION. 7:12 PM 12/30/17 PATIENT SIGNED OUT TO ME BY DR MCCARTHY. PENDING CRISIS DISPOSITION. 7:10 AM 01/01/18 PATIENT SIGNED OUT TO ME BY DR WALKRE. PENDING CRISIS EVALUATION/ DISPOSITION. 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 (Alexandra HERNANDEZ,Shamar Robin) Departure Departure Disposition: STILL A PATIENT Condition: Stable Clinical Impression Primary Impression: Depression Qualifiers: Depression Type: major depressive disorder Secondary Impressions: Suicidal ideation Referrals: Mercedes Woods (PCP/Family) Departure Forms: Customer Survey General Discharge Information (Quentin Sanchez) Departure Time of Disposition: 1029 Psych Admission Note Psychiatric Admission: I have seen and evaluated CINDY LAGUNAS. I have also reviewed all the pertinent lab results and diagnostic results. CINDY LAGUNAS will be admitted to our inpatient Psychiatric unit for treatment and care. (Lisa Gaxiola MD)
[2017-12-28 20:27] LABS: ABSOLUTE BASOPHIL COUNT 0 /CUMM (0.0-0.2); ABSOLUTE EOSINOPHIL COUNT 0.1 /CUMM (0.0-0.7); ABSOLUTE GRANULOCYTE CT 4.7 /CUMM (1.4-6.5); ABSOLUTE LYMPH COUNT 2.9 /CUMM (1.2-3.4); ABSOLUTE MONOCYTE COUNT 0.5 /CUMM (0.10-0.60); BASOPHIL % 0.3 % (0.0-2.0); EOSINOPHIL % 1.1 % (0-5); GRANULOCYTE % 57.8 % (42.2-75.2); HEMATOCRIT 43.7 % (42-52); MEAN CORPUSCULAR HGB 28.9 PG (27.0-31.0); MEAN CORPUSCULAR HGB CONC 32.4 G/DL (33.0-37.0); MEAN CORPUSCULAR VOLUME 89.1 FL (80.0-94.0); MEAN PLATELET VOLUME 8.1 FL (7.4-10.4); PLATELET COUNT 370 /CUMM (130-400); RBC DISTRIBUTION WIDTH 13.6 % (11.5-14.5); RED BLOOD CELL CT 4.91 /CUMM (4.70-6.10); WHITE BLOOD CELL COUNT 8.1 /CUMM (4.8-10.8)
[2017-12-28] MEDS ORDERED: ABILIFY5 M1 PO (21:35)
[2017-12-28] MEDS ORDERED: LAMOTRIGINE25 M3 PO (21:36)
--- NOTE | 2017-12-29 12:17 | ED PSYCH CRISIS CONSULTATION ---
See Addendum Crisis Consult Basic Assessment Date of Consult: 12/29/17 Responsible Person/Accompanied By: with antonino Andino Insurance Authorization: Insurance #1: Insurance name: MEDICARE A Phone number: Policy number: [id number] Group number: Authorization number: ED Provider: Patient's ED Provider: Lisa Gaxiola MD Primary Care Physician: Patient's PCP: Mercedes Woods PCP's Current Psychiatrist: Dr. Cee in [place] Chief Complaint: Psychiatric Related Complaint Patient's Quote: "Im having invasive negative thoughts" Present Illness: Pt is a 47 year old male, he reports a recent med change that he feels os affecting his mood, pt was prescribed abilify 10mg, and it was decreased to 5mg due to experiencing akathisia. Spoke to pt's outpatient psychiatrist who confirms pt began having akathisia, he states he started him on lamictal 25mg, and compromised with 150mg of zoloft, although he would like him to be on less, he states pt has a tendency to make his own med changes, i.e. he began to adjust the prescribed 100mg of zoloft to 200mg on his own, which is why he is currently on 150mg, " a middle ground, for now", pt had done well on Seroquel, but it was discontinued at his last admission at [place]. Generally speaking he is anxious, and has a conversion disorder accompanied with seizures, he has often been treated in our ER for this. He presents today with "invasive negative thoughts", which has him worried. Pt attributes these thoughts to recent med changes, he states "I am fearful to be alone, I was cutting a tomato and handed my fiance the knife, due to intrusive thoughts of wanting to cut myself, or not be here anymore furthermore, he states "I intellectually know its my arm, but it feels foreign to me and I've had the urge to cut it off". Pt reports diagnosis of of depression, and anxiety. He is prescribed valium, zoloft, abilify and lamictal. He smokes marijuana occasional. He appears anxious, stuttering in an effort to speak, and his legs are quite restless. Antonino Andino is present during evaluation. Dr. Cee recommends inpatient hospitalization at this time. Patient's Address: [address] [place] [address] Other Phone Number: Who Do You Live With? Family Family/Informants Interviewed: Thu is present during eval, and supports decison for him to get into appropriate level of care, for stability. Dr. Cee his psychiatrist recommends higher level of care at this time Allergies - Coded Allergies: hydroxychloroquine (From PLAQUENIL) (Intermediate, SWEATS AND CHILLS 12/22/16) venom-honey bee (BEE VENOM (HONEY BEE)) (Intermediate, LOCAL REACTION 12/22/16) atenolol (Mild, RASH 12/22/16) labetalol (Mild, RASH 12/22/16) pimozide (From ORAP) (ELEVATED HR 12/22/16) lorazepam (Severe, HALLUCINATIONS AND AGRESSIVE BEHAVIOR 12/22/16) bupropion (Intermediate, TACHYCARDIA, ANXIETY 12/22/16) divalproex sodium (From DEPAKOTE) (HALLUCINATIONS 10/03/17) haloperidol (MAKES HIM JUMPY 12/22/16) Current Medications - Scheduled Medications Aripiprazole (Abilify) 5 MG TABLET 1 TAB PO DAILY MENTAL HEALTH (Reported) Entered as Reported by Kerry Barbour on 12/28/172134 Cholecalciferol (Vitamin D3) (Vitamin D) 2,000 UNIT TABLET 1 TAB PO DAILY SUPPLEMENT (Reported) Entered as Reported by Kerry Barbour on 09/12/16 1745 Dexlansoprazole (Dexilant) 60 MG CAP. 1 CAP PO DAILY GI (Reported) Entered as Reported by PANCHO HORNE on 03/31/14 1616 Folic Acid 0.4 MG TABLET 3 TAB PO DAILY SUPPLEMENT (Reported) Entered as Reported by Kerry Barbour on 02/16/15 1657 Lamotrigine 25 MG TABLET 1 TAB PO [facility] MENTAL HEALTH & SEIZURES #30 (Reported) Entered as Reported by Kerry Barbour on 12/28/17 2136 Meloxicam 15 MG TABLET 1 TAB PO DAILY PAIN/INFLAMMATION #90 (Reported) Entered as Reported by Kerry Barbour on 07/06/17 1842 Methotrexate 2.5 MG TABLET 3 TAB PO QWED PSORIATIC ARTHRITIS (Reported) Entered as Reported by Kerry Barbour on 02/16/15 1657 Sertraline HCl 100 MG TABLET 2 TAB PO DAILY MENTAL HEALTH #30 (Reported) Entered as Reported by Kerry Barbour on 07/06/17 1841 Scheduled PRN Medications Diazepam 5 MG TABLET 1 TAB PO Q4 HRS NEEDED PRN SEIZURES #30 (Reported) Entered as Reported by Allen Persaud on 10/17/17 1147 Laboratory Results: Laboratory Tests 12/28/17 2309: Urine Opiates Screen < 100.00, Methadone Screen < 40, Barbiturate Screen < 60, Ur Phencyclidine Scrn < 6.00, Amphetamines Screen < 100, U Benzodiazepines Scrn > 800 H, Urine Cocaine Screen < 50, Urine Cannabis Screen 75.90 H 12/28/172011: Anion Gap 14, Estimated GFR > 60, BUN/Creatinine Ratio 27.1 H, Glucose 112 H, Calcium 9.4, Total Bilirubin 0.2, AST 45, ALT 82 H, Alkaline Phosphatase 91, Total Protein 7.1, Albumin 4.2, Globulin 2.9, Albumin/Globulin Ratio 1.4, CBC w Diff NO MAN DIFF REQ, RBC 4.91, MCV 89.1, MCH 28.9, MCHC 32.4 L, RDW 13.6, MPV 8.1, Gran % 57.8, Lymphocytes % 35.2, Monocytes % 5.6, Eosinophils % 1.1, Basophils % 0.3, Absolute Granulocytes 4.7, Absolute Lymphocytes 2.9, Absolute Monocytes 0.5, Absolute Eosinophils 0.1, Absolute Basophils 0, Serum Alcohol < 10.0 Past History Past Medical History Neurological: PSEUDO SEIZURES EENT: NONE Cardiovascular: hypertension Respiratory: NONE Gastrointestinal: NONE Hepatic: NONE Renal: ENLARGED PROSTATE Musculoskeletal: NONE Psychiatric: anxiety, depression, CONVERSION DISORDER PTSD OCD Endocrine: NONE Blood Disorders: NONE Cancer(s): NONE BEVEL OPERATOR/Reproductive: NONE Past Surgical History Surgical History: cholecystectomy Psychosocial History Strengths/Capabilities: family, 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 and Dr. Cee Reason for Treatment depression/conversion d/o Dates of Treatment 2017 twice admitted and currently with Dr. Cee Response to Treatment can function well, once treated Diagnosis by History: depression, anxiety and conversion d/o Substance Use/Abuse History Drug Use/Abuse Substances Used/Abused Yes Substance Used/Abused Marijuana First Use unknown Last Used this week How much used/taken varies/ How often varies For how long years Route of use vapes Substance Abuse Treatment Substance Abuse Treatment Past Substance Abuse [place] No Current Mental Status Mental Status Orientation: Person, Place, Situation Affect: Anxious Speech: Delayed, Perseveration Neuro-vegetative: Concentration Poor, Energy Increased, Sleep Disturbance Appearance Appearance- Dress/Hygiene: groomed Behaviors Thought Process: WNL Thought Content: Obsessions Memory: WNL Insight: Fair SI/HI Risk Assessment Past Suicidal Ideation/Attempts No Current Suicidal Ideation/Att Yes Past Homicidal Ideation/Att: No Current Homicidal Ideation/Attempts No Degree of Intent: States Intent Danger To: Self Gravely Disabled: Poor Impulse Control Risk Factors: high anxiety/distress, substance abuse, male Lethality Ratin PTSD Checklist PTSD Done? patient declined ED Management Sitter: Yes Restraints: No DSM5/PS Stressors/Medical Prob Diagnosis' (DSM 5, Stressors, Medical): MDD recurrent moderate, F33.1 Conversion D/O with seizures recent med changes Current GAF: 27 Departure Disposition Psych Medical Clearance Date: 12/29/17 Medically Cleared at: 1115 Time Started: 1115 Time Ended: 1214 Psychiatrist Consulted: Yogesh Walters MD Date Disposition Established: 12/29/17 Time Disposition Established: 1214 Plan for Disposition - Modality: Bed Search Rationale for Disposition: Consulted with Dr. Walters, pt meets criteria for inpatient hospitialization currently [facility] is full, will begin a bed search. Referrals Mercedes Woods (PCP/Family)
--- NOTE | 2017-12-30 13:17 | ED PSYCHIATRIST/APRN CONSULT ---
Psychiatrist/GEOPHYSICAL DRAFTER ED Consult Assessment and Plan: Pt seen as f/u. Continues to maintain that thoughts of killing himself. Agrees with hospitalization. MSE General appearance: fair hygiene and grooming; Attitude: cooperative; Eye contact: appropriate; Movement: + psychomotor slowing; Speech: nl fluency, nl rate/rhythm, nl volume, nl prosody; Mood: "depressed" Affect: flat, appropriate, constricted, non-labile, congruent; Thought process: linear and goal-directed; Thought content: denied SI or HI, no paranoid ideation; Perception: denied hallucinations- auditory, visual, does not appear to be responding to internal stimuli; I/J: limited A/P: Pt with worsening depression and SI in the setting of multiple psychosocial stressors. - Bed search underway
--- NOTE | 2017-12-31 13:09 | ED PSYCHIATRIST/APRN CONSULT ---
Psychiatrist/LEGAL EXECUTIVE ED Consult Assessment and Plan: Pt seen as f/u. Continues to maintain that thoughts of killing himself. Feels that SI worsened or precipitated by decrease in abilify from 10mg to 5mg as he noted himself to be very sensitive to meds. MSE General appearance: fair hygiene and grooming; Attitude: cooperative; Eye contact: appropriate; Movement: + psychomotor slowing; Speech: nl fluency, nl rate/rhythm, nl volume, nl prosody; Mood: "down" Affect: flat, appropriate, constricted, non-labile, congruent; Thought process: linear and goal-directed; Thought content: + passive SI, no paranoid ideation; Perception: denied hallucinations- auditory, visual, does not appear to be responding to internal stimuli; I/J: limited A/P: Pt with worsening depression and SI in the setting of multiple psychosocial stressors. - Bed search underway
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
[2018-01-01 14:31] VITALS: BP 142/94
--- NOTE | 2018-01-01 15:47 | CPS PROVIDER INIT ASMT PSYCH ---
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 Spoke to pt's outpatient psychiatrist who confirms pt began having akathisia, he states he started him on lamictal 25mg, and compromised with 150mg of zoloft, although he would like him to be on less, he states pt has a tendency to make his own med changes, i.e. he began to adjust the prescribed 100mg of zoloft to 200mg on his own, which is why he is currently on 150mg, " a middle ground, for now", pt had done well on Seroquel, but it was discontinued at his last admission at [facility]. Chief Complaint: "Im having invasive negative thoughts" Reaction to Hospitalization: The patient was admitted voluntarily History of Present Illness Onset of Illness: The patient attributes the changes in medication his mental status to changes in medications although I have doubts about that and he puts the duration of the changes in his mental status to about 1 or 2 weeks Circumstances Leading to Admission: Thoughts of suicide Problem(s) Justifying Need for Admission: Thoughts of suicide Past Psychiatric History Past Diagnosis(es)- if any: Past diagnoses include posttraumatic stress stress disorder obsessive-compulsive disorder and anxiety disorder and depressive disorder Past Precipitating Factors- if any: Unknown - Include inpatient and outpatient treatment Treatment History: The patient has had a total of 4 hospitalizations in his lifetime. The first one was at age 18 and the last one was June 2017 at [facility]. The patient denied history of actual suicide attempts. He has been in outpatient treatment with Dr. Adams Chen History of Suicide Attempts or Gestures No history of actual suicide attempts Substance Abuse History: The patient denied heavy drinking or alcohol use Allergies: Coded Allergies: hydroxychloroquine (From PLAQUENIL) (Intermediate, SWEATS AND CHILLS 12/22/16) venom-honey bee (BEE VENOM (HONEY BEE)) (Intermediate, LOCAL REACTION 12/22/16) atenolol (Mild, RASH 12/22/16) labetalol (Mild, RASH 12/22/16) pimozide (From ORAP) (ELEVATED HR 12/22/16) lorazepam (Severe, HALLUCINATIONS AND AGRESSIVE BEHAVIOR 12/22/16) bupropion (Intermediate, TACHYCARDIA, ANXIETY 12/22/16) divalproex sodium (From DEPAKOTE) (HALLUCINATIONS 10/03/17) haloperidol (MAKES HIM JUMPY 12/22/16) Home Med List: The patient has been in appetite on Abilify 5 mg daily the Lamotrigine 25 mg once daily and Zoloft 150 mg daily - Include any medical condition(s) that may - impact the patient's recovery/remission Past History Medical History Neurological: PSEUDO SEIZURES EENT: NONE Respiratory: NONE Gastrointestinal: GERD Hepatic: NONE Renal: ENLARGED PROSTATE Musculoskeletal: degen joint disease, CARPAL TUNNEL Psychiatric: anxiety, depression, CONVERSION DISORDER PTSD OCD Endocrine: NONE Blood Disorders: NONE Cancer(s): NONE 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 Social History Living Situation: The patient has stable housing Significant Relationships (family/friends): The patient is engaged Education: Patient quit in the middle of high school at age 18 and this followed his admission to inpatient psychiatric treatment Vocation/Occupation: Currently works part-time in [employer] Legal: No legal entanglements Other Social History: No legal entanglements Healthly Behaviors Screening Tobacco Screening Tobacco Use from ED Docu: Never used - If tobacco counseling indicated - the following topics are required. - #1 Recognizing dangerous situations. - #2 Coping Skills. - #3 Basic information about quitting. Status of Tobacco Cessation Counseling: Not Applicable Cessation Med Status Not Applicable Alcohol Screening - ETOH screen POS if BAL >=80 or Audit-C>= M4/F3 Audit-C Score from Diag Assess: 2 Alcohol Use Screening Results: Neg per Audit C &/or BAL - If ETOH counseling indicated - the following topics are required. - #1 Express concern about the patient's - drinking at unhealthy levels, include informing - of national norms for moderate drinking: - men <= 14 drinks/week, max 4 drinks/occasion - women <= 7 drinks/week, max 3 drinks/occasion - #2 Providing feedback, including linking alcohol to - negative physical effects (liver injury, hypertension) - negative emotional effects (relationship problems and - depression) - negative occupational consequences (reduced work - performance) - #3 Advising the patient to abstain from alcohol or - to drink below national norms for moderate drinking - (as listed above). Status of ETOH Use Counseling: N/A B/C NO ETOH Use Metabolic Screening - Screen if on a Neuroleptic Medication - Metabolic screening should include: - Blood Pressure, BMI, Glucose or Hgb A1c, & a - Lipid profile from within the past 365 days. Metabolic Screening Patient on a neuroleptic(s) . Enter below results for Hemoglobin A1C, and lipid panel if obtained during the last 365 days. BMI: 42.400 Blood Pressure: 142/94 Laboratory Results From [facility] (If applicable): Lab Cholesterol 228 MG/DL H 09/19/17 1037 Cholesterol/HDL Ratio 6 % H 09/19/17 1037 HDL Cholesterol 40 mg/dL 09/19/17 1037 Hemoglobin A1c 5.8 % 09/19/17 1037 LDL Cholesterol, Calc 144 mg/dL H 09/19/17 1037 Triglycerides 223 mg/dL H 09/19/17 1037 Exam and Plan Mental Status Examination Ambulation Status: Full Mobility and steady gait Appearance: Unremarkable Attitude towards examiner: Calm and cooperative Psychomotor activity: Normal psychomotor activity Behavior: No abnormal behaviors Quality of speech: Normal speech not pressured Affect: Good range of affect Mood: Depressed Suicidal Ideation: Acknowledge that he was having suicidal ideation Homicidal Ideation: Denied homicidal ideation Hallucinations: Denied hallucinations Paranoid/Delusional Material: Denied feeling paranoid, there were no delusions Difficulties with thought organization: No difficulties with thought organization Insight: Good Insight Judgment: good judgment Orientation: Oriented to time place and person Cognition: No cognitive deficits noted Memory Function: No memory deficits noted Estimate of intellectual functioning: Average Assets/Strengths Patient Identified Assets/Strengths: Likable honest and friendly Impression/Plan Impression and Plan: 47-year-old engaged white male who was admitted because of thoughts of suicide - Include all active medical diagnosis that require tx DSM 5 Diagnosis(es): Major depressive disorder - Initial Tx Plan for Active Psych & Medical Conditions Treatment Plan: Inpatient psychiatric care, 15 minute checks, group therapy milieu therapy Nursing assessments and education by nursing staff vital signs by the nurses aides Aftercare planning and collateral information by social work The patient will be evaluated daily and medications will be evaluated daily by a psychiatrist in Continue Abilify 5 mg daily Increase lamotrigine to 25 mg twice daily Change diazepam to 10 mg at bedtime and 5 mg as needed for anxiety continue Zoloft 150 mg daily - Factors that would help patient function - in a less restrictive setting. Factors: Medication adjustments
[2018-01-01 16:06] VITALS: BP 146/89
[2018-01-01 20:06] VITALS: BP 138/73
[2018-01-02 07:34] VITALS: BP 123/75
[2018-01-02 12:06] VITALS: BP 130/90
--- NOTE | 2018-01-02 13:21 | CP SOUTH PROGRESS NOTE PSYCH ---
Psych (Inpt) Progress Note Progress Note Mental Status Examination Full Mobility and steady gait Appearance is unremarkable Calm and cooperative Normal psychomotor activity No abnormal behaviors Normal speech not pressured Good range of affect Mood is depressed Still having intrusive thoughts, an occasional thought of suicide, does not linger Denied homicidal ideation Denied hallucinations Denied feeling paranoid, there were no delusions No difficulties with thought organization Good Insight good judgment Oriented to time place and person No cognitive deficits noted No memory deficits noted Assessment: Pt is a 47 year old male, he reports a recent med change that he feels os affecting his mood, pt was prescribed abilify 10mg, and it was decreased to 5mg due to experiencing akathisia. Spoke to pt's outpatient psychiatrist who confirms pt began having akathisia, he states he started him on lamictal 25mg, and compromised with 150mg of zoloft, although he would like him to be on less, he states pt has a tendency to make his own med changes, i.e. he began to adjust the prescribed 100mg of zoloft to 200mg on his own, which is why he is currently on 150mg, " a middle ground, for now", pt had done well on Seroquel, but it was discontinued at his last admission at [place]. DSM 5 Diagnosis(es): Major depressive disorder Treatment Plan: Increase Abilify to 7 mg at bedtime Continue lamotrigine 25 mg twice daily Increase diazepam to 15 mg at bedtime Reduce PRN to 5 mg Q8 hours as needed for anxiety continue Zoloft 150 mg daily Inpatient psychiatric care, 15 minute checks, group therapy milieu therapy, Nursing assessments and education by nursing staff vital signs by the nurses aides, Aftercare planning and collateral information by social work The patient will be evaluated daily and medications will be evaluated daily by a psychiatrist in Medication adjustments
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
[2018-01-02 16:11] VITALS: BP 139/88
--- NOTE | 2018-01-02 16:36 | SOCIAL WORKER PROG NOTE PSYCH ---
Social Work Progress Note Progress Note presented as very anxious, shaking his leg uncontrollably when we met. He said he was here due to his depression and anxiety becoming worse. He currently sees Dr. Cee in [place] for his psychiatric medications. He reported a change in his Abilify and stated that his symptoms worsened after the decrease. He started having increased anxiety, invasive, and instrusive thoughts accompanied by SI. He really got scared the other day when he was chopping a tomato in the kitchen and thought about cutting himself. He stated he threw down the knife and had to leave the kitchen. He felt that he could of potentially acted on this thought. He lives with his fiance Thu and his 18 year old son. His fiance and him have been together for 7 years. 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 He also receives disability due to his psychiatric disorder. He is hoping to get stabilized with a med change. He is currently having on and off SI, but states he is safe on the unit and can talk to someone. He reports difficulty sleeping and a slight decrease in appetite due to his anxiety. He is trying to stay busy and not stay focused on his thoughts. When asked about breathing exercises, he stated it causes his symptoms to become worse due to his OCD behaviors. He said he starts counting. He counts alot of things in 4's. Talked about setting up a family meeting with Thu. Asked about consideration of an IOP for discharge, but he wasn't ready to think about it at this point. Called and scheduled a family meeting for at 3pm.
--- NOTE | 2018-01-02 19:59 | History & Physical ---
General Information and HPI MD Statement: I have seen and personally examined CINDY LAGUNAS and documented this H&P. The patient is a 47 year old M who presented with a patient stated chief complaint of BIBA due toSI.. "I am having invasive negative thoughts" Source of Information: patient Exam Limitations: no limitations History of Present Illness: 47 year old male with history of depression,anxety and seizures,has been off Abilify for 1 week feeling shaky for 1 week.Worsening depression and anxiety for a few days,having thoughts of hurting self. After recent medication change noted change in mood.was having adverse reaction to the medication. Allergies/Medications Allergies: Coded Allergies: hydroxychloroquine (From PLAQUENIL) (Intermediate, SWEATS AND CHILLS 12/22/16) venom-honey bee (BEE VENOM (HONEY BEE)) (Intermediate, LOCAL REACTION 12/22/16) atenolol (Mild, RASH 12/22/16) labetalol (Mild, RASH 12/22/16) pimozide (From ORAP) (ELEVATED HR 12/22/16) lorazepam (Severe, HALLUCINATIONS AND AGRESSIVE BEHAVIOR 12/22/16) bupropion (Intermediate, TACHYCARDIA, ANXIETY 12/22/16) divalproex sodium (From DEPAKOTE) (HALLUCINATIONS 10/03/17) haloperidol (MAKES HIM JUMPY 12/22/16) Home Med list Aripiprazole (Abilify) 5 MG TABLET 1 TAB PO DAILY MENTAL HEALTH (Reported) Cholecalciferol (Vitamin D3) (Vitamin D) 2,000 UNIT TABLET 1 TAB PO DAILY SUPPLEMENT (Reported) Dexlansoprazole (Dexilant) 60 MG ANSHUL.BP 1 CAP PO DAILY GI (Reported) Diazepam 5 MG TABLET 1 TAB PO Q4 HRS NEEDED PRN SEIZURES (Reported) Folic Acid 0.4 MG TABLET 3 TAB PO DAILY SUPPLEMENT (Reported) Lamotrigine 25 MG TABLET 1 TAB PO QHS MENTAL HEALTH & SEIZURES (Reported) Meloxicam 15 MG TABLET 1 TAB PO DAILY PAIN/INFLAMMATION (Reported) Methotrexate 2.5 MG TABLET 3 TAB PO QWED PSORIATIC ARTHRITIS (Reported) Sertraline HCl 100 MG TABLET 2 TAB PO DAILY MENTAL HEALTH (Reported) Compliance With Home Meds: POOR Past History Travel History Traveled to [place] past 21 day No Medical History Neurological: PSEUDO SEIZURES EENT: NONE Respiratory: NONE Gastrointestinal: GERD Hepatic: NONE Renal: ENLARGED PROSTATE Musculoskeletal: degen joint disease, CARPAL TUNNEL Psychiatric: anxiety, depression, CONVERSION DISORDER PTSD OCD Endocrine: NONE Blood Disorders: NONE Cancer(s): NONE 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 Home Employment History Employment Employed Profession/Employer [employer] Review of Systems Review of Systems Constitutional: Reports: see HPI. Exam & Diagnostic Data Last 24 Hrs of Vital Signs/I&O Vital Signs Date Time Temp Pulse Resp B/P B/P Pulse O2 O2 Flow FiO2 Mean Ox Delivery Rate 01/02 1611 81 139/88 01/02 1206 88 130/90 01/02 0734 96.7 88 123/75 01/01 2006 97.9 100 138/73 Physical Exam General Appearance Alert, Oriented X3, Cooperative, No Acute Distress Skin No Rashes, No Significant Lesion HEENT PERRLA, EOMI, Mucous Membr. moist/pink Neck Supple, No JVD, No thryomegaly, +2 Carotid Pulse wo Bruit, No LAD Lymphatic Axillary nl, Cervical nl Cardiovascular Regular Rate, No Murmurs Lungs Clear to Auscultation, Normal Air Movement Abdomen Normal Bowel Sounds, Soft, No Tenderness Neurological Exam Findings: Normal Gait, Normal Speech, Strength at 5/5 X4 Ext, Normal Tone, Sensation Intact, Cranial Nerves 3-12 NL, Reflexes 2+ Cranial Nerves II through XII: Intact. Extremities No Clubbing, No Cyanosis, No Edema, Normal Pulses Vascular Normal Pulses, Pulses Symmetrical Last 24 Hrs of Labs/Mike: Glucose: 112, BUN19, CR:0.7, Lytes WNL. ALT: 82 WBC: 8100, H?H 14.2?43.7 Diagnostic Data ITS Data Unobtainable at this time Assessment/Plan As Ranked By This Provider Problem List: 1. Depression Qualifiers Depression Type: major depressive disorder 2. Suicidal ideation Miscellaneous Miscellaneous Documentation Attending Case Discussed With: Keely HERNANDEZ,Luis A Primary Care Physician: Mercedes Woods Patient sees these Specialists psych. Level of Patient Care: [facility] Consults Needed: Consulting Specialty: Psychiatry Consulting Physician: Dr Walters Reason for Consult: Depression, SI
[2018-01-02 20:08] VITALS: BP 134/84
[2018-01-03 07:46] VITALS: BP 122/84
--- NOTE | 2018-01-03 10:48 | CP SOUTH PROGRESS NOTE PSYCH ---
Psych (Inpt) Progress Note Progress Note The treatment team discussed the patients progress and aftercare plans The treatment team included nursing staff, social work staff, group and activity therapists, and psychiatrist Blood pressure this morning was 122/84, pulse was 91/m, and temperature was 96.0 No new lab work from the past 24 hours Mental Status Examination: The patient was alert, and oriented to time place and person. He did not seem to be in physical distress. Full Mobility and steady gait, Calm and cooperative, Normal psychomotor activity; No abnormal behaviors, Normal speech not pressured; Good range of affect, Mood is depressed, Still having intrusive thoughts, an occasional thought of suicide, does not linger; Denied homicidal ideation Denied hallucinations, denied feeling paranoid, there were no delusions No difficulties with thought organization, good Insight, good judgment No cognitive deficits noted, no memory deficits noted Assessment and Summary: is a 47-year-old engaged White male who was admitted to the inpatient psychiatric unit on 3 admission in 2016 , last was at [place]/ [facility]. DSM 5 Diagnosis(es): Major depressive disorder Recovery Plan Update: Reduce Diazepam to 5 mg Q12 hours as needed for anxiety or restlessness Add PRN Gabapentin 600 mg at bedtime as needed for insomnia Continue Diazepam 15 mg at bedtime Continue Abilify 7 mg at bedtime Continue Lamotrigine 25 mg twice daily Continue Zoloft 150 mg daily Continue Methotrexate Inpatient psychiatric care, 15 minute checks, group therapy milieu therapy, Nursing assessments and education by nursing staff vital signs by the nurses aides, Aftercare planning and collateral information by social work; patient will be evaluated daily and medications will be evaluated daily by a psychiatrist
[2018-01-03 12:07] VITALS: BP 136/75
[2018-01-03] MEDS ORDERED: ABILIFY5 M1 PO (15:46)
[2018-01-03] MEDS ORDERED: GABAPENTIN300 M2 PO (15:46)
[2018-01-03] MEDS ORDERED: OMEPRAZOLE20 M2 PO (15:46)
[2018-01-03] MEDS ORDERED: FOLIC ACID1 M1 PO (15:46)
[2018-01-03] MEDS ORDERED: LAMICTAL25 M1 PO (15:46)
[2018-01-03] MEDS ORDERED: IBUPROFEN800 M1 PO (15:46)
[2018-01-03] MEDS ORDERED: SERTRALINE HCL50 MG PO (15:46)
[2018-01-03] MEDS ORDERED: ABILIFY2 MG PO (15:46)
[2018-01-03] MEDS ORDERED: DIAZEPAM5 M1 PO ×2 (15:46)
--- NOTE | 2018-01-03 15:49 | Patient Discharge Instructions ---
Psych Discharge Inst General Discharge Information Reason for Admission: Negative thoughts (intrusive). Psy Discharge Primary Diag+ Major depression Psy Discharge Secondary Diag+ R/o seizure Pseudoseizures Summary Tests/Major Procedures Lab ALT 82 U/L H 12/28/17 2012 BUN 19 mg/dL 12/28/17 2012 BUN/Creatinine Ratio 27.1 % H 12/28/17 2012 Carbon Dioxide 24 mmol/L 12/28/172011 Chloride 104 mmol/L 12/28/17 2012 Cholesterol 228 MG/DL H 09/19/17 1037 Cholesterol/HDL Ratio 6 % H 09/19/17 1037 Creatinine 0.7 mg/dL 12/28/17 2012 Estimated GFR > 60 ml/min 12/28/17 2012 Glucose 112 mg/dL H 12/28/17 2012 HDL Cholesterol 40 mg/dL 09/19/17 1037 Hemoglobin A1c 5.8 % 09/19/17 1037 LDL Cholesterol, Calc 144 mg/dL H 09/19/17 1037 Potassium 4.2 mmol/L 12/28/172011 Sodium 141 mmol/L 12/28/17 2012 Triglycerides 223 mg/dL H 09/19/17 1037 Hct 43.7 % 12/28/172011 Hgb 14.2 G/DL 12/28/17 2012 Plt Count 370 /CUMM 12/28/17 2012 WBC 8.1 /CUMM 12/28/17 2012 Serum Alcohol < 10.0 MG/DL 12/28/17 2012 U Benzodiazepines Scrn > 800 NG/ML H 12/28/17 2309 Urine Cannabis Screen 75.90 NG/ML H 12/28/17 2309 Studies Pending at DC: Per medical team (prolactin). Patient Instructions Contact Information Your Psychiatrist on [facility] was Luis A Riggs MD * If you are experiencing an emergency related to this hospitalization, please call [phone] to contact the treating psychiatrist or the psychiatrist-on- call. * To Request a copy of your medical records, please contact the Medical Records Department at [phone]. * To request results of studies pending at the time of discharge, please call [phone]. * Continue your Medications until directed to stop by your Healthcare provider. General Medication Information Please continue to take your new medications and your continued home medications , unless otherwise indicated on your discharge medication list, or unless directed by your MD or HOSPICE EXECUTIVE DIRECTOR to stop them. Special Instructions Diet Regular Activity As Tolerated Other Inst/Recommendations Transferring to medical floor s/p apparent seizure. Needs 1:1 sitter. - Tobacco Use Treatment Offered Post DC Medications Offered: Not Applicable Post DC Tobacco Treatment Plan: Not Applicable - EtOH/Drug Use D/O Treatment Offered Post DC Medications Offered: NA-No EtOH/Drug Use D/O Post DC EtOH/SubAbuse [place] Plan: NA-No EtOH/Drug Use D/O Advance Directives Does the Patient have Medical Advance Directives No/Refused further info Does Pt have Psychiatric Advance Directives? No/Refused further info Does Patient have a Designated Surrogate Decision Maker: No Information About Psychiatric Advance Directives Provided? Refused Discharge Plan Post Hospital Treatment Plan: Transferrring to [facility] Medical floor s/p seizure. 1) Please arrange 1:1 sitter for safety. 2) Please request psychiatry consult.
[2018-01-03 16:17] VITALS: BP 134/90
--- NOTE | 2018-01-03 16:33 | SOCIAL WORKER PROG NOTE PSYCH ---
Social Work Progress Note Progress Note was meeting with me around 3:30pm today. Reported feeling worse than yesterday, stating his symptoms of anxiety, depression, and intrusive thoughts seemed worse. Continues to have some thoughts of SI on and off. Didn't sleep well last night. Stated that the Trazadone game him nightmares and he won't take that anymore. I told him that the family meeting is scheduled for tomorrow at 3pm. We talked about IOP being a good option for him for discharge. He seemed to agree. Asked if Dr. Jordan would remain his doctor? I told him he would not and that someone would prescribe from IOP. was really having a hard time and visibly looked like he was becoming more distressed. I offered to go with him to the nursing station to see if there was anything available to help him right now. As he started to get up he became very unstable and so I encouraged him to sit back down. As he did, he fell back into the chair and then collapsed sideways falling to the left side breaking the chair and then collapsing onto the floor face down. At that point I called to get assistance and a rapid response was called. was taken to the medical floor. He will be discharged from [facility] for now. Called his fiance Thu and informed her of the event and where he was.
--- NOTE | 2018-01-04 10:13 | DISCHARGE SUMMARY REPORT-PSYCH ---
Visit Information Visit Dates/Diagnosis' Admission Date: 01/01/18 Discharge Date: 01/03/18 Reason for Admission: Negative thoughts (intrusive). Psy Discharge Primary Diag: Major depression Psy Discharge Secondary Diag: R/o seizure Pseudoseizures Hospital Course Significant Lab Findings: Lab U Benzodiazepines Scrn > 800 NG/ML H 12/28/17 2309 U Benzodiazepines Scrn > 800 NG/ML H 01/03/18 1900 Urine Cannabis Screen 75.90 NG/ML H 12/28/17 2309 Course Complications: The patient had seizure on January 03, 2018 and was transferred to the medical floor Consultations: The patient had a history and physical examination upon admission to Inpatient Psychiatry. He also was transferred to the medical floor and more input on consultations were done over there please refer to that episode of care in the patient's electronic health record Allergies: Coded Allergies: hydroxychloroquine (From PLAQUENIL) (Intermediate, SWEATS AND CHILLS 12/22/16) venom-honey bee (BEE VENOM (HONEY BEE)) (Intermediate, LOCAL REACTION 12/22/16) atenolol (Mild, RASH 12/22/16) labetalol (Mild, RASH 12/22/16) pimozide (From ORAP) (ELEVATED HR 12/22/16) lorazepam (Severe, HALLUCINATIONS AND AGRESSIVE BEHAVIOR 12/22/16) bupropion (Intermediate, TACHYCARDIA, ANXIETY 12/22/16) divalproex sodium (From DEPAKOTE) (HALLUCINATIONS 10/03/17) haloperidol (MAKES HIM JUMPY 12/22/16) Hospital Course/TX Response: The patient is a 47-year-old engaged white male who was admitted to the inpatient psychiatric unit on January 01, 2018, the reason for his admission was reportedly changes in his mood. The patient attributed them to medication changes, he reportedly was prescribed Abilify 10 mg bouts reported that he may have experienced akathisia on his outpatient psychiatrist decreased it to 5 mg because of that. It looks like the crisis psych social worker did confirm this information with the patient's outpatient psychiatrist On the day of head of his admission I continue the Abilify at 5 mg daily and lamotrigine was increased to 25 mg twice daily and (patient was taking 25 mg once daily before admission) His diazepam which he was taking on an as-needed basis was changed to 5 mg during the day for anxiety as needed and 10 mg at bedtime for insomnia and also for the management of anxiety He was continued on Zoloft 150 mg once daily. On January 02 I discussed with the patient medication options including going up on the Abilify but only by 2 mg so that we do not run the risk of side effects at the same time offering him the added benefit since he reported that at the higher end of the dose he was having much less intrusive thoughts and more stable moods. The patient reported that he did not sleep the night before on his diazepam dose was increased to 15 mg at bedtime and his as needed requirements for diazepam was reduced to 5 mg every 8 hours as needed for anxiety on 03 January the patient was starting to feel better everything was continued the same except that the patient was told that the as needed's of diazepam will be reduced to 5 mg up to twice daily but the bedtime dose was continued at 50 mg at bedtime I also added as needed doses of gabapentin 600 mg as needed for insomnia Around 4 PM in the afternoon the patient reportedly had what sounded seemed like grand mal seizure while he was meeting with his [employer]EDER, Leola Silva, the patient was transferred to the medical floor for further investigation and treatment Discharge HBIPS - Tobacco Use Treatment Offered Post DC Medications Offered: Not Applicable Post DC Tobacco Treatment Plan: Not Applicable - EtOH/Drug Use D/O Treatment Offered Post DC Medications Offered: NA-No EtOH/Drug Use D/O Post DC EtOH/SubAbuse TX Plan: NA-No EtOH/Drug Use D/O Metabolic Screening - Screen if on a Neuroleptic Medication - Metabolic screening should include: - Blood Pressure, BMI, Glucose or Hgb A1c, & a - Lipid profile from within the past 365 days. Metabolic Screening Patient on a neuroleptic(s) . Enter below results for Hemoglobin A1C, and lipid panel if obtained during the last 365 days. BMI: 42.400 Blood Pressure: 134/90 Laboratory Results From [facility] (If applicable): Lab ALT 73 U/L H 01/03/18 1600 AST 33 U/L 01/03/18 1600 Cholesterol 228 MG/DL H 09/19/17 1037 Cholesterol/HDL Ratio 6 % H 09/19/17 1037 HDL Cholesterol 40 mg/dL 09/19/17 1037 Hemoglobin A1c 5.8 % 09/19/17 1037 LDL Cholesterol, Calc 144 mg/dL H 09/19/17 1037 Triglycerides 223 mg/dL H 09/19/17 1037 Discharge Instructions General Discharge Information Multiple Neuroleptics: ([X]) Not Applicable Discharge Diet Regular Discharge Activity As Tolerated DC Disposition: to medical floor Prescriptions Stop taking the following medications: Dexlansoprazole (Dexilant) 60 MG BP ORAL DAILY Folic Acid (Folic Acid) 0.4 MG TABLET ORAL DAILY Sertraline HCl (Sertraline HCl) 100 MG TABLET ORAL DAILY Qty = 30 Meloxicam (Meloxicam) 15 MG TABLET ORAL DAILY Qty = 90 Diazepam (Diazepam) 5 MG TABLET ORAL EVERY 4 HOURS NEEDED as needed for SEIZURES Qty = 30 Aripiprazole (Abilify) 5 MG TABLET ORAL DAILY Lamotrigine (Lamotrigine) 25 MG TABLET ORAL TAKE AT BEDTIME Qty = 30 Continue taking these medications: Methotrexate (Methotrexate) 2.5 MG TABLET 3 Tablet ORAL EVERY MONDAY Comments: Last Taken:01/03/18 Time:919 Cholecalciferol (Vitamin D3) (Vitamin D) 2,000 UNIT TABLET 1 Tablet ORAL DAILY Comments: Last Taken:01/03/18 Time:919 Start taking the following new medications: Ibuprofen (Ibuprofen) 800 MG TABLET 800 Milligram ORAL THREE TIMES DAILY Qty = 1 No Refills Comments: Last Taken: 01/03/18 Time: 920 Gabapentin (Gabapentin) 300 MG CAPSULE 600 Milligram ORAL AT BEDTIME NEEDED as needed for INSOMNIA Qty = 1 No Refills Lamotrigine (Lamictal) 25 MG TABLET 25 Milligram ORAL TWICE DAILY Qty = 1 No Refills Comments: Last Taken:01/03/18 Time:919 Sertraline HCl (Sertraline HCl) 50 MG TABLET 150 Milligram ORAL DAILY Qty = 1 No Refills Comments: Last Taken:01/03/18 Time:919 Aripiprazole (Abilify) 5 MG TABLET 5 Milligram ORAL AT BEDTIME Qty = 1 No Refills Comments: Last Taken:01/02/18 Time:2201 Aripiprazole (Abilify) 2 MG TABLET 2 Milligram ORAL AT BEDTIME Qty = 1 No Refills Comments: Last Taken:01/02/18 Time:2201 Diazepam (Diazepam) 5 MG TABLET 15 Milligram ORAL AT BEDTIME Qty = 1 No Refills Comments: Last Taken:01/02/18 Time:2202 Diazepam (Diazepam) 5 MG TABLET 5 Milligram ORAL Every 12 hours as needed as needed for ANXIETY/INSOMNIA Qty = 1 No Refills Comments: NOT TAKEN DURING THIS ADMIT Omeprazole (Omeprazole) 20 MG CAPSULE.DR 40 Milligram ORAL DAILY BEFORE BREAKFAST Qty = 1 No Refills Comments: Last Taken:01/03/18 Time:0703 Folic Acid (Folic Acid) 1 MG TABLET 1 Milligram ORAL DAILY Qty = 1 No Refills Comments: Last Taken:01/03/18 Time:0920 Other Inst/Recommendations Transferring to medical floor s/p apparent seizure. Needs 1:1 sitter. Copies To: Med Floor
--- NOTE | 2018-01-04 10:52 | SOCIAL WORKER PROG NOTE PSYCH ---
Social Work Progress Note Faxed Referral(s) Referred To: patient referred/ transferred to medical floor here at [facility]
== END 2018-01-03 15:45 | disposition home or self-care (01) | DRG 881 ==
LOC: ERH 19:17 → CP SOUTH 01-01 10:51 → ERHI 01-01 10:51 → ENTRNSPT 01-01 12:21 → EDTRNSPTSTS 01-01 12:35 → EDTRNSPT 01-01 12:35 → CP SOUTH 01-01 12:45 → CMPTRNSPT 01-01 12:51 → ENRESERV 01-01 23:59 → CP SOUTH 01-02 11:10 → 1NO 01-03 15:45 → CP SOUTH 01-03 15:45 → 1NO 01-03 16:28
PROVIDERS: Physician Assistant Medical
DX: F32.9 Major depressive disorder, single episode, unspecified (principal); R56.9 Unspecified convulsions
CPT/HCPCS: 36415; 80307; 81003; 82436; 93005; 93010; G0463; G0480; J3360; J3490; J8610

== ENCOUNTER 2018-01-03 15:45 | Observation (INO) | payer OTHER, MEDICARE ==
[~2018-01-03] VITALS: Ht 190.5 cm; Wt 154.2 kg
[~2018-01-03 15:45] MED LIST changes: +ABILIFY5 M1 PO; +LAMOTRIGINE25 M3 PO
[2018-01-03] MEDS ORDERED: GABAPENTIN300 M2 PO (15:46)
[2018-01-03] MEDS ORDERED: DIAZEPAM5 M1 PO ×2 (15:46)
[2018-01-03] MEDS ORDERED: LAMICTAL25 M1 PO (15:46)
[2018-01-03] MEDS ORDERED: FOLIC ACID1 M1 PO (15:46)
[2018-01-03] MEDS ORDERED: OMEPRAZOLE20 M2 PO (15:46)
[2018-01-03] MEDS ORDERED: ABILIFY5 M1 PO (15:46)
[2018-01-03] MEDS ORDERED: SERTRALINE HCL50 MG PO (15:46)
[2018-01-03] MEDS ORDERED: IBUPROFEN800 M1 PO (15:46)
[2018-01-03] MEDS ORDERED: ABILIFY2 MG PO (15:46)
[2018-01-03 16:13] LABS: ABSOLUTE BASOPHIL COUNT 0.1 /CUMM (0.0-0.2); ABSOLUTE EOSINOPHIL COUNT 0.1 /CUMM (0.0-0.7); ABSOLUTE GRANULOCYTE CT 4.9 /CUMM (1.4-6.5); ABSOLUTE LYMPH COUNT 3.2 /CUMM (1.2-3.4); ABSOLUTE MONOCYTE COUNT 0.7 /CUMM (0.10-0.60); BASOPHIL % 0.8 % (0.0-2.0); EOSINOPHIL % 1.2 % (0-5); GRANULOCYTE % 54.5 % (42.2-75.2); HEMATOCRIT 43.7 % (42-52); MEAN CORPUSCULAR HGB 29.3 PG (27.0-31.0); MEAN CORPUSCULAR VOLUME 88.8 FL (80.0-94.0); MEAN PLATELET VOLUME 8.4 FL (7.4-10.4); PLATELET COUNT 361 /CUMM (130-400); RBC DISTRIBUTION WIDTH 13.4 % (11.5-14.5); RED BLOOD CELL CT 4.92 /CUMM (4.70-6.10); WHITE BLOOD CELL COUNT 8.9 /CUMM (4.8-10.8)
[2018-01-03 16:50] VITALS: BP 134/90
--- NOTE | 2018-01-03 17:24 | History & Physical ---
See Addendum Kris HRENANDEZGabriel 01/03/18 8083: General Information and HPI MD Statement: I have seen and personally examined CINDY LAGUNAS and documented this H&P. The patient is a 47 year old M who presented with a patient stated chief complaint of [SEIZURE-LIKE ACTIVUTY]. Source of Information: family, FIANCEE Exam Limitations: no limitations, pt himself is unable to give the full history, but i apoke with his fiancee and i was present during the rapid response incident at [facility] History of Present Illness: 47 yo M with pmh of pseudoseizures, PTSD, depression, anxiety, psoriatic arthritis, ?Tourette's, ?OCD, was voluntarily admitted in the Inpatient Psychiatry [facility] 2 days ago after being on Abilify on 5 mg (from 10mg ) for 1 week and "feeling shaky". He had mentioned that he had worsening depression and anxiety for a few days and had suicidal ideation as well. During his admission earlier today, a rapid response was called at [facility] (inpatient psychiatry unit) which led to the patient being transferred to the telemetry unit. According to the nurse, the patient was with the nurse and was about to get his medication, when he said that he felt weak, was sitting on his chair, tried to stand up, but instead started falling off the chair to the ground, slowly, witnessed. He did not hit his head, but was immediately having unresponsiveness/ LOC with abnormal jerky movement of his both upper and lower limbs. The movement was not tonic-clonic, negative for eye up-rolling, or tongue bite, or frothing, or incontinence of bowel/bladder. He was placed on a lateral position by the nurse, and was assessed by the rapid response team. Of note, during the incident, patient was partially responding to the instructions, was stammering but not responding verbally, and did not lose his consciousness completely. I spoke to the patient and later his fiance, who confirmed that he has been having these symptoms multiple times, the latest being a couple of weeks ago, at home as well. He is following psychiatrist for somatoform disorder/conversion disorder. His medication changes made him feel more weaker and was the only reason why he came to the emergency department and later got admitted in the Inpatient Psychiatry. He was drowsy after the incident, but appear to be alert, oriented, and responding very well on reevaluation at 6 PM today. Social history: smoking- denied EtOH- "rarely", last drink two months ago illicit- marijuana 3x/week Family History: dad, ; mom-alive in [place], 2 sisters in [place]. Allergies/Medications Allergies: Coded Allergies: hydroxychloroquine (From PLAQUENIL) (Intermediate, SWEATS AND CHILLS 12/22/16) venom-honey bee (BEE VENOM (HONEY BEE)) (Intermediate, LOCAL REACTION 12/22/16) atenolol (Mild, RASH 12/22/16) labetalol (Mild, RASH 12/22/16) pimozide (From ORAP) (ELEVATED HR 12/22/16) lorazepam (Severe, HALLUCINATIONS AND AGRESSIVE BEHAVIOR 12/22/16) bupropion (Intermediate, TACHYCARDIA, ANXIETY 12/22/16) divalproex sodium (From DEPAKOTE) (HALLUCINATIONS 10/03/17) haloperidol (MAKES HIM JUMPY 12/22/16) Home Med list Aripiprazole (Abilify) 5 MG TABLET 5 MG PO AT BEDTIME moods Aripiprazole (Abilify) 2 MG TABLET 2 MG PO AT BEDTIME moods Cholecalciferol (Vitamin D3) (Vitamin D) 2,000 UNIT TABLET 1 TAB PO DAILY SUPPLEMENT (Reported) Diazepam 5 MG TABLET 15 MG PO AT BEDTIME anxiety Diazepam 5 MG TABLET 5 MG PO Q12P PRN ANXIETY/INSOMNIA Folic Acid 1 MG TABLET 1 MG PO DAILY folate supplement Gabapentin 300 MG CAPSULE 600 MG PO AT BEDTIME NEEDED PRN INSOMNIA Ibuprofen 800 MG TABLET 800 MG PO TID pain Lamotrigine (Lamictal) 25 MG TABLET 25 MG PO BID moods Methotrexate 2.5 MG TABLET 3 TAB PO QWED PSORIATIC ARTHRITIS (Reported) Omeprazole 20 MG CAPSULE.DR 40 MG PO DAILY AC GERD Sertraline HCl 50 MG TABLET 150 MG PO DAILY depression Past History Medical History Neurological: PSEUDO SEIZURES EENT: NONE Cardiovascular: hypertension Respiratory: NONE Gastrointestinal: GERD Hepatic: NONE Renal: ENLARGED PROSTATE Musculoskeletal: degen joint disease, psoariatic arthritis, CARPAL TUNNEL Psychiatric: anxiety, depression, CONVERSION DISORDER PTSD OCD Endocrine: NONE Blood Disorders: NONE Cancer(s): NONE CRYSTAL FINISHER/Reproductive: NONE History of MRSA: No History of VRE: No History of CDIFF: No Tetanus Vaccine: 08/09/15 Surgical History Surgical History: cholecystectomy Past Family/Social History Family History Relations & Conditions if any Relation not specified for: *No pertinent family history Psychosocial History Primary Language: Welsh Smoking Status: Never Smoked ETOH Use: "rarely", last drink 2 months ago Illicit Drug Use: marijuana (3 x /week) Functional Ability ADLs Independent: dressing, eating, toileting, bathing. Ambulation: independent IADLs Independent: shopping, housework, finances, food prep, telephone, transportation , medication admin. Review of Systems Review of Systems Constitutional: Reports: no symptoms. EENTM: Reports: no symptoms. Cardiovascular: Reports: no symptoms. Respiratory: Reports: no symptoms. GI: Reports: no symptoms. Genitourinary: Reports: no symptoms. Musculoskeletal: Reports: no symptoms. Skin: Reports: no symptoms. Neurological/Psychological: Reports: see HPI. Hematologic/Endocrine: Reports: no symptoms. All Other Systems: Reviewed and Negative Exam & Diagnostic Data Last 24 Hrs of Vital Signs/I&O Vital Signs Date Time Temp Pulse Resp B/P B/P Pulse O2 O2 Flow FiO2 Mean Ox Delivery Rate 01/03 1650 97.9 93 22 134/90 93 Assessment/Plan Assessment: 47 yo M with pmh of pseudoseizures, PTSD, depression, anxiety, psoriatic arthritis, ?Tourette's, ?OCD, was voluntarily admitted in the Inpatient Psychiatry [facility] 2 days ago after being on Abilify on 5 mg (from 10mg ) for 1 week and "feeling shaky". He had mentioned that he had worsening depression and anxiety for a few days and had suicidal ideation as well. During his admission earlier today, a rapid response was called at [facility] (inpatient psychiatry unit) which led to the patient being transferred to the telemetry unit. Patient is currently observed in the telemetry unit for further monitoring and treatment if necessary for seizure-like activity/seizures. Of note the patient has a history of conversion disorder with seizure-like activity, and has had an extensive workup for neurology/seizure, which was negative according to the medical records. He as well as his fiance does not seem to be surprised when informed that he had a seizure-like activity earlier today. At this point, we cannot be sure that what he suffered was a seizure or any other condition. * Continue to observe in telemetry * Vitals, input/output * Regular neurochecks * Seizure precautions * Continue medications as recommended upon discharge by the psychiatry unit earlier, including benzodiazepines, which he has a long-standing dependence to. * Will get a psychiatry consultation for following up with his ongoing treatment. * DVT prophylaxis * CODE STATUS full code * Diet: Patient was initially kept nothing by mouth as he was drowsy, but after he responded well at around 6 PM, a bedside swallow screening was done by me, and he passed. Thus nothing by mouth orders are canceled now and a regular diet has been ordered. As Ranked By This Provider Problem List: 1. SEIZURE LIKE ACTIVITY Core Measures/Misc (08/13) Acute Coronary Syndrome ACS Diagnosis: No Congestive Heart Failure Congestive Heart Failure Diagnosis No Cerebrovascular Accident CVA/TIA Diagnosis: No VTE (View Protocol) VTE Risk Factors Age>40 No Mechanical VTE Prophylaxis d/t N/A MechProphylax Ordered No VTE Pharm Prophylaxis d/t NA PharmProphylax ordered Sepsis (View protocol) Sepsis Present: No Polo Gutierrez MD 01/03/18 2003: Attending MD Review Statement Attending Statement Attending MD Statement: examined this patient, discuss w/resident/PA/CRYSTAL INSPECTOR, agreed w/resident/PA/CRYSTAL INSPECTOR, reviewed EMR data (avail) Attending Assessment/Plan: 47M PMH PTSD, pseudoseizures, anxiety, depression, amitted to [facility] with depression and SI, had rapid response called today for syncopal event. Patient is tremulous and refusing to give history. Per psych staff patient bear from his chair, then collapsed to the ground and had seizure-like activity, which I witnessed when arriving at the scene. He stopped shaking, and was then non- verbal and making stuttering sounds. He was placed on a stretcher and brought to the telemetry floor. Initial plan was to give Ativan, but patient became agitated and answered yes when asked by ICU nursing supervisor volunteer services if he was allergic to Ativan (he answered by nodding, he still had not yet spoken). Tremors continued. Plan - Observation in telemetry - Serial enzymes and EKG - Psychiatry consult - Continue home medications - Valium 5mg IV PRN seizure activity - DVT PPx - Favor pseudoseizures, do not suspect syncopal event, will rule out cardiac event and likely discharge back to [facility]
--- NOTE | 2018-01-03 20:31 | Event Note ---
Event Note Event Note: Patient passed a bedside swallow screening performed by me without any difficulty. His NPO orders were then canceled and a regular diet ordered. Gabriel Ponce MD PGY2 Resident
[2018-01-03 22:07] VITALS: BP 130/80
[2018-01-04 06:05] VITALS: BP 108/60
--- NOTE | 2018-01-04 07:37 | PN-Observation ---
See Addendum Observation Note Observation Note _ I have personally examined CINDY LAGUNAS. him disposition is uncertain at this time. Before a determination can be made, he requires continued observation for the following reasons [fall and syncope]. Assessment/Plan Assessment: Patient is a 47-year-old male with past medical history of pseudoseizures, PTSD, depression, anxiety, suicidal ideations, voluntarily admitted in the Inpatient Psychiatry [facility] 2 days ago after being on Abilify on 5 mg (from 10mg ) for 1 week and "feeling shaky". He had mentioned that he had worsening depression and anxiety for a few days and had suicidal ideation as well. During his admission earlier today, a rapid response was called at [facility] (inpatient psychiatry unit) which led to the patient being transferred to the telemetry unit. Patient is currently observed in the telemetry unit for further monitoring and treatment if necessary for seizure-like activity/seizures. Of note the patient has a history of conversion disorder with seizure-like activity, and has had an extensive workup for neurology/seizure, which was negative according to the medical records. He as well as his fiance does not seem to be surprised when informed that he had a seizure-like activity earlier that day prior. Patient has not had any seizure-like activities or events on telemetry. Patient's neuro exam is normal. Patient is anxious to go back to inpatient psychiatry unit today. * Continue to observe in telemetry * Vitals, input/output * Regular neurochecks * Seizure precautions * Continue medications as recommended upon discharge by the psychiatry unit earlier, including benzodiazepines, which he has a long-standing dependence to. * Will get a psychiatry consultation for following up with his ongoing treatment. * DVT prophylaxis * CODE STATUS full code * Diet: Patient was initially kept nothing by mouth as he was drowsy, but after he responded well at around 6 PM, a bedside swallow screening was done by me, and he passed. Thus nothing by mouth orders are canceled now and a regular diet has been ordered. * Disposition: The patient is stable for discharge to inpatient psychiatry. Patient has a bed available today. Problem List: 1. SEIZURE LIKE ACTIVITY Subjective Follow-up For: fall, syncope pseudoseizure Subjective: Patient was seen and examined today. Patient states that he is feeling better however continues to express suicidal ideations. Patient denies any homicidal ideations or any plan at the moment. Patient is worried this morning that he does not have that available for him on the psychiatry unit. Patient denies any seizure-like activity. Patient's sitter was at bedside and does not report seeing any seizure activity. Review of Systems Constitutional: Reports: no symptoms. Cardiovascular: Reports: no symptoms. Respiratory: Reports: no symptoms. Gastrointestinal: Reports: no symptoms. Genitourinary: Reports: no symptoms. Musculoskeletal: Reports: no symptoms. Neurological/Psychological: Reports: anxiety, depressed, other (suicideal ideations). Objective Last 24 Hrs of Vital Signs/I&O Vital Signs Date Time Temp Pulse Resp B/P B/P Pulse O2 O2 Flow FiO2 Mean Ox Delivery Rate 01/04 605 97.4 82 20 108/60 93 01/03 2207 98.3 94 20 130/80 92 Intake & Output 01/04 1600 01/04 0800 01/04 0000 Intake Total 200 300 330 Output Total Balance 200 300 330 Intake, IV 150 Intake, Oral 200 300 180 Patient 340 lb Weight Physical Exam General Appearance: Alert, Oriented X3, Cooperative, No Acute Distress HEENT: Atraumatic, PERRLA, EOMI, Mucous Membr. moist/pink Cardiovascular: Regular Rate, Normal S1, Normal S2, No Murmurs Lungs: Clear to Auscultation, Normal Air Movement Abdomen: Normal Bowel Sounds, Soft, No Tenderness Neurological: Normal Speech, Strength at 5/5 X4 Ext, Normal Tone, Sensation Intact, Cranial Nerves 3-12 NL, Reflexes 2+ Extremities: No Clubbing, No Cyanosis, No Edema, Normal Pulses, No Tenderness/ Swelling Vascular: Normal Pulses, Pulses Symmetrical Current Medications: Current Medications Sig/Juli Start time Last Medication Dose Route Stop Time Status Admin Acetaminophen 650 MG Q6P PRN 01/03 173 DCD PO Acetaminophen 1,000 MG Q6P PRN 01/03 173 DCD IV Aripiprazole 5 MG AT BEDTIME 01/03 2200 DCD 01/03 PO 2044 Aripiprazole 2 MG AT BEDTIME 01/03 2200 DCD 01/03 PO 2043 Cholecalciferol 2,000 IU DAILY 01/04 1000 DCD 01/04 PO 0958 Diazepam 15 MG AT BEDTIME 01/03 2200 DCD 01/03 PO 2042 Diazepam 5 MG Q12P PRN 01/03 1730 DCD 01/04 PO 0958 Enoxaparin Sodium 40 MG DAILY 01/04 1000 DCD 01/04 SC 0959 Folic Acid 1 MG DAILY 01/04 1000 DCD 01/04 PO 0958 Gabapentin 600 MG AT BEDTIME NEED.. 01/03 1730 DCD PO Lamotrigine 25 MG BID 01/03 2200 DCD 01/04 PO 0958 Methotrexate 7.5 MG QWED 01/10 0700 DCD PO Omeprazole 40 MG DAILY AC 01/04 0700 DCD 01/04 PO 0608 Sertraline HCl 150 MG DAILY 01/04 1000 DCD 01/04 PO 0959 Sodium Chloride 1,000 ML .[id number] 01/03 1715 DC 01/03 IV 01/04 0634 1758 Last 24 Hrs of Labs/Mics: Laboratory Tests 01/04/18 0635: Anion Gap 11, Estimated GFR > 60, BUN/Creatinine Ratio 18.8 01/03/18 1900: Urine Opiates Screen < 100.00, Methadone Screen < 40, Barbiturate Screen < 60, Ur Phencyclidine Scrn < 6.00, Amphetamines Screen < 100, U Benzodiazepines Scrn > 800 H, Urine Cocaine Screen < 50, Urine Cannabis Screen 15.60, Urine Color YEL, Urine Clarity CLEAR, Urine pH 6.0, Ur Specific Noel >= 1.030, Urine Protein NEG, Urine Ketones NEG, Urine Nitrite NEG, Urine Bilirubin NEG, Urine Urobilinogen 0.2, Ur Leukocyte Esterase NEG, Ur Microscopic EXAM NOT REQUIRED, Urine Hemoglobin NEG, Urine Glucose NEG
--- NOTE | 2018-01-04 09:22 | Discharge Summary ---
Visit Information Visit Dates Admission Date: 01/03/18 Discharge Date: 01/04/2018 Hospital Course Course Attending Physician: Russ Mcallister MD Primary Care Physician[facility]: 47 yo M with pmh of pseudoseizures, PTSD, depression, anxiety, psoriatic arthritis, ?Tourette's, ?OCD, was voluntarily admitted in the Inpatient Psychiatry [facility] 2 days ago after being on Abilify on 5 mg (from 10mg ) for 1 week and "feeling shaky". He had mentioned that he had worsening depression and anxiety for a few days and had suicidal ideation as well. During his admission earlier today, a rapid response was called at [facility] (inpatient psychiatry unit) which led to the patient being transferred to the telemetry unit. According to the nurse, the patient was with the nurse and was about to get his medication, when he said that he felt weak, was sitting on his chair, tried to stand up, but instead started falling off the chair to the ground, slowly, witnessed. He did not hit his head, but was immediately having unresponsiveness/ LOC with abnormal jerky movement of his both upper and lower limbs. The movement was not tonic-clonic, negative for eye up-rolling, or tongue bite, or frothing, or incontinence of bowel/bladder. He was placed on a lateral position by the nurse, and was assessed by the rapid response team. Of note, during the incident, patient was partially responding to the instructions, was stammering but not responding verbally, and did not lose his consciousness completely. He was drowsy after the incident, but appear to be alert, oriented, and responding very well on reevaluation. patient was observed in telemetry for 24 hours, acs rules out, no arrthymias in the monitoring.no more events were observed.prolactin within NL limits.vital signs are stable. patient was put on valium PRN 5 mg Q12 and was medically stable to go back to [facility]. Allergies: Coded Allergies: hydroxychloroquine (From PLAQUENIL) (Intermediate, SWEATS AND CHILLS 12/22/16) venom-honey bee (BEE VENOM (HONEY BEE)) (Intermediate, LOCAL REACTION 12/22/16) atenolol (Mild, RASH 12/22/16) labetalol (Mild, RASH 12/22/16) pimozide (From ORAP) (ELEVATED HR 12/22/16) lorazepam (Severe, HALLUCINATIONS AND AGRESSIVE BEHAVIOR 12/22/16) bupropion (Intermediate, TACHYCARDIA, ANXIETY 12/22/16) divalproex sodium (From DEPAKOTE) (HALLUCINATIONS 10/03/17) haloperidol (MAKES HIM JUMPY 12/22/16) Disposition Summary Disposition Principal Diagnosis: pseudoseizures Additional Diagnosis: PTSD, depression, anxiety, psoriatic arthritis Discharge Disposition: [facility] Discharge Instructions General Discharge Information Code Status: Full Code Patient's Diet: regular Patient's Activity: as tolerated Follow-Up Instructions/Appts: -you are being transferred to [facility] for furthut management of your condition. -please follow up with PCP and psychiatrist after discharge. Medications at Discharge Discharge Medications: Continue taking these medications: Methotrexate (Methotrexate) 2.5 MG TABLET 3 Tablet ORAL EVERY MONDAY Comments: NOT GIVEN Cholecalciferol (Vitamin D3) (Vitamin D) 2,000 UNIT TABLET 1 Tablet ORAL DAILY Comments: Last Taken: 01/04/18 Time: 957 Ibuprofen (Ibuprofen) 800 MG TABLET 800 Milligram ORAL THREE TIMES DAILY Qty = 1 Comments: NOT GIVEN Gabapentin (Gabapentin) 300 MG CAPSULE 600 Milligram ORAL AT BEDTIME NEEDED as needed for INSOMNIA Qty = 1 Comments: NOT GIVEN Lamotrigine (Lamictal) 25 MG TABLET 25 Milligram ORAL TWICE DAILY Qty = 1 Comments: Last Taken:01/03/18 Time:919 Sertraline HCl (Sertraline HCl) 50 MG TABLET 150 Milligram ORAL DAILY Qty = 1 Comments: Last Taken: 01/04/18 Time: 958 Aripiprazole (Abilify) 5 MG TABLET 5 Milligram ORAL AT BEDTIME Qty = 1 Comments: Last Taken: 01/03/18 Time: 2043 Aripiprazole (Abilify) 2 MG TABLET 2 Milligram ORAL AT BEDTIME Qty = 1 Comments: Last Taken: 01/03/18 Time: 2044 Diazepam (Diazepam) 5 MG TABLET 15 Milligram ORAL AT BEDTIME Qty = 1 Comments: Last Taken: 01/03/18 Time: 2042 Diazepam (Diazepam) 5 MG TABLET 5 Milligram ORAL Every 12 hours as needed as needed for ANXIETY/INSOMNIA Qty = 1 Comments: Last Taken: 01/04/18 Time: 957 Omeprazole (Omeprazole) 20 MG CAPSULE.DR 40 Milligram ORAL DAILY BEFORE BREAKFAST Qty = 1 Comments: Last Taken: 01/04/18 Time: 607 Folic Acid (Folic Acid) 1 MG TABLET 1 Milligram ORAL DAILY Qty = 1 Comments: Last Taken: 01/04/18 Time: 957 Copies To: Joo Woods APRN, Stephen F Attending MD Review Statement Documenting Attending: Russ Mcallister MD Other Findings: The patient was seen and discussed with house staff. Agree with discharge today back to [facility]/psychiatry to complete evaluation of depression/SI. The patient has known pseudo-seizures and no significant issues on telemetry. Had prior pseudo-seizure 3 weeks ago. Discussed with psychiatry.
--- NOTE | 2018-01-04 10:16 | Patient Discharge Instructions ---
Discharge Instructions General Discharge Information You were seen/treated for: non epileptic seizures Special Instructions: -you are being transferred to [facility] for furthut management of your condition. -please follow up with PCP and psychiatrist after discharge. Diet Continue normal diet: Yes Activity Full Activity/No Limits: Yes (as tolerated) Acute Coronary Syndrome Inclusion Criteria At DC or during hospital stay patient has or had the following: ACS DIAGNOSIS No Discharge Core Measures Meds if any: Prescribed or Continued at Discharge Meds if any: NOT Prescribed or Continued at Discharge Congestive Heart Failure Inclusion Criteria At DC or during hospital stay patient has or had the following: CHF DIAGNOSIS No Discharge Core Measures Meds if any: Prescribed or Continued at Discharge Meds if any: NOT Prescribed or Continued at Discharge Cerebrovascular accident Inclusion Criteria At DC or during hospital stay patient has or had the following: CVA/TIA Diagnosis No Discharge Core Measures Meds if any: Prescribed or Continued at Discharge Meds if any: NOT Prescribed or Continued at Discharge Venous thromboembolism Inclusion Criteria VTE Diagnosis No VTE Type NONE VTE Confirmed by (Test) NONE Discharge Core Measures - Per Current guidelines, there needs to be overlap - treatment for the first 5 days of Warfarin therapy. - If discharged on Warfarin prior to 5 days of - overlap therapy, the patient will need to be - assessed for post discharge needs including - *Post discharge parental anticoagulation - *Warfarin and/or parental anticoagulation education - *Follow up date to check INR post discharge At least 5 days overlap therapy as Inpatient No Meds if any: Prescribed or Continued at Discharge Note: Overlap Therapy is Warfarin and Anticoagulant Meds if any: NOT Prescribed or Continued at Discharge
--- NOTE | 2018-01-04 11:05 | Incdntl Nt Psy ---
Incidental Note Notation: The patient reports that he has difficulty with sleep maintenance. History of sleep apnea, and has another appointment with sleep center the end of December. He does not tolerate the Bipap machine. [place] and Seroquel: Denies allergy, but reports he had to stop these, due to changes in his personality and mood. tegretol: No AE, but reports it did not have an effect on him, dosing unknown. [facility], he is afraid about his impulsive behavior.
== END 2018-01-04 12:30 ==
LOC: 1NO 15:45 → ENPENDDIS 01-04 11:58 → 1NO 01-04 12:30
PROVIDERS: Student in an Organized Health Care Education/Training Program
DX: G40.89 Other seizures (principal); I10 Essential (primary) hypertension; K21.9 Gastro-esophageal reflux disease without esophagitis; N40.0 Benign prostatic hyperplasia without lower urinary tract symptoms; L40.50 Arthropathic psoriasis, unspecified; M19.90 Unspecified osteoarthritis, unspecified site; F41.9 Anxiety disorder, unspecified; F32.9 Major depressive disorder, single episode, unspecified; F43.10 Post-traumatic stress disorder, unspecified; F42.9 Obsessive-compulsive disorder, unspecified; F12.90 Cannabis use, unspecified, uncomplicated; Z79.899 Other long term (current) drug therapy
CPT/HCPCS: 1387; 6020; 6031; 36415; 80307; 81003; 82436; 94799; 96372; 96374; G0378; G0379; J0131; J1650; J3490

== ENCOUNTER 2018-01-04 10:01 | Inpatient (IN) | payer OTHER, MEDICARE ==
[~2018-01-04] VITALS: Ht 190.5 cm; Wt 154.8 kg
[~2018-01-04 10:01] MED LIST changes: +ABILIFY2 MG PO; +FOLIC ACID1 M1 PO; +GABAPENTIN300 M2 PO; +IBUPROFEN800 M1 PO; +LAMICTAL25 M1 PO; +OMEPRAZOLE20 M2 PO; +SERTRALINE HCL50 MG PO
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
--- NOTE | 2018-01-04 15:24 | SOCIAL WORKER PROG NOTE PSYCH ---
Social Work Progress Note Progress Note Spoke with Sheree at [facility] because patient discharged to medical and returned to [facility] in less than 24 hours. Sheree sugessted a concurrent review.
[2018-01-04 16:11] VITALS: BP 131/84
[2018-01-04 19:24] VITALS: BP 154/81
[2018-01-04 21:21] VITALS: BP 121/71; BP 124/77; BP 134/82
[2018-01-05 07:43] VITALS: BP 129/77
--- NOTE | 2018-01-05 09:04 | SOCIAL WORKER PROG NOTE PSYCH ---
Social Work Progress Note Progress Note Called and scheduled a family meeting with 's chelle Andino for 1pm today. Family meeting held with and his fikatiana Andino. Dr. Jordan was also present for this meeting. said he had a difficult night and was doing okay today until the medical student (Eleonora) wanted to talk about past history. This brought up the topic of whether or not pursuing therapy for his past trauma is really helping or hurting him? Thu feels that often more times than not, it causes more anxiety. She is always nervous on whether or not he'll be okay to drive or she'll have to pick him up. talked about how the trauma ways on his mind alot. We talked about how alot of current trauma work focuses more on dealing with symptoms as they come up and how they connect to present life issues. He seemed to feel that would be the better way to deal with things at this point. Talked about going to [employer] when he discharges here at [facility]. He seems open to that. Would like to work a day or two a week at [employer] while he is attending [employer]. He is hoping and Thu is hoping that he will feel better by the time their vacation is here. They have a cruise planned in February. During the meeting seemed to be presenting with some signs that he wasn't feeling well and could possibly have a seizure. He said he was trying to avoid that because he doesn't want to go back to the medical floor. He said he felt a little off. He seemed to be able to work through it. Continues to have a sense of humor. His son may visit him tomorrow.
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
--- NOTE | 2018-01-05 10:29 | CP SOUTH PROGRESS NOTE PSYCH ---
Psych (Inpt) Progress Note Progress Note Include the following elements, when applicable: Involvement in the active treatment of the patient with behavioral observations of the patient and the patient's response to the treatment. Review of the ongoing treatment process in the context of the treatment plan. Indication of how multi-disciplinary staff members are carrying out the treatment plan. Plans for future interventions and recommendations for revision of the treatment plan. Liaison with other physicians/providers. Progress Note: Med Aripiprazole 5 MG PO AT BEDTIME 01/04/18 2200 Aripiprazole 2 MG PO AT BEDTIME 01/04/18 2200 Cholecalciferol 2,000 IU PO DAILY 01/05/18 1000 Diazepam 15 MG PO AT BEDTIME 01/04/18 2200 Diazepam 5 MG PO Q24 PRN 01/05/18 0830 Folic Acid 1 MG PO DAILY 01/05/18 1000 Ibuprofen 800 MG PO TID 01/04/18 1600 Methotrexate 7.5 MG PO We 01/10/18 0800 Omeprazole 40 MG PO DAILY AC 01/05/18 0700 Sertraline HCl 200 MG PO DAILY 01/05/18 1000
--- NOTE | 2018-01-05 11:04 | History & Physical ---
General Information and HPI MD Statement: I have seen and personally examined CINDY LAGUNAS and documented this H&P. The patient is a 47 year old M who presented with a patient stated chief complaint of patient returned from telemetry. Source of Information: patient, old records Exam Limitations: unable to give history History of Present Illness: 47-year-old white male who was at Inpatient Psychiatry, had a rapid response for "questionable seizure" went upstairs to the telemetry floor for 24 hours and returns to the unit for continuation of his evaluation for his depression and suicidal ideations Allergies/Medications Allergies: Coded Allergies: hydroxychloroquine (From PLAQUENIL) (Intermediate, SWEATS AND CHILLS 12/22/16) venom-honey bee (BEE VENOM (HONEY BEE)) (Intermediate, LOCAL REACTION 12/22/16) atenolol (Mild, RASH 12/22/16) labetalol (Mild, RASH 12/22/16) pimozide (From ORAP) (ELEVATED HR 12/22/16) lorazepam (Severe, HALLUCINATIONS AND AGRESSIVE BEHAVIOR 12/22/16) bupropion (Intermediate, TACHYCARDIA, ANXIETY 12/22/16) divalproex sodium (From DEPAKOTE) (HALLUCINATIONS 10/03/17) haloperidol (MAKES HIM JUMPY 12/22/16) Home Med list Aripiprazole (Abilify) 5 MG TABLET 5 MG PO AT BEDTIME moods Aripiprazole (Abilify) 2 MG TABLET 2 MG PO AT BEDTIME moods Cholecalciferol (Vitamin D3) (Vitamin D) 2,000 UNIT TABLET 1 TAB PO DAILY SUPPLEMENT (Reported) Diazepam 5 MG TABLET 15 MG PO AT BEDTIME anxiety Diazepam 5 MG TABLET 5 MG PO Q12P PRN ANXIETY/INSOMNIA Folic Acid 1 MG TABLET 1 MG PO DAILY folate supplement Gabapentin 300 MG CAPSULE 600 MG PO AT BEDTIME NEEDED PRN INSOMNIA Ibuprofen 800 MG TABLET 800 MG PO TID pain Lamotrigine (Lamictal) 25 MG TABLET 25 MG PO BID moods Methotrexate 2.5 MG TABLET 3 TAB PO QWED PSORIATIC ARTHRITIS (Reported) Omeprazole 20 MG CAPSULE.DR 40 MG PO DAILY AC GERD Sertraline HCl 50 MG TABLET 150 MG PO DAILY depression Compliance With Home Meds: UNKNOWN Past History Medical History Neurological: PSEUDO SEIZURES EENT: NONE Cardiovascular: hypertension Respiratory: NONE Gastrointestinal: GERD Hepatic: NONE Renal: ENLARGED PROSTATE Musculoskeletal: degen joint disease, psoariatic arthritis, CARPAL TUNNEL Psychiatric: anxiety, depression, CONVERSION DISORDER PTSD OCD Endocrine: NONE Blood Disorders: NONE Cancer(s): NONE 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 Other Primary Language: Bhutanese Functional Ability ADLs Independent: dressing, eating, toileting, bathing. Ambulation: independent IADLs Independent: shopping, housework, finances, food prep, telephone, transportation , medication admin. Review of Systems Review of Systems Constitutional: Reports: see HPI. Exam & Diagnostic Data Last 24 Hrs of Vital Signs/I&O Vital Signs Date Time Temp Pulse Resp B/P B/P Pulse O2 O2 Flow FiO2 Mean Ox Delivery Rate 01/05 924 96.8 01/05 0743 96.8 89 129/77 01/04 2121 108 134/82 01/04 2121 84 124/77 01/04 2121 76 121/71 01/04 1924 97.2 99 154/81 01/04 1611 92 131/84 Physical Exam General Appearance Alert, Oriented X3, Cooperative Skin No Rashes HEENT PERRLA, EOMI Neck Supple, No JVD, No thryomegaly Lymphatic Axillary nl, Cervical nl Cardiovascular Regular Rate, No Murmurs Lungs Clear to Auscultation, Normal Air Movement Abdomen Normal Bowel Sounds, Soft Neurological Exam Findings: Normal Speech, Strength at 5/5 X4 Ext, Normal Tone, Cranial Nerves 3-12 NL, few tremors in his hands Cranial Nerves II through XII: Intact Extremities No Edema, Normal Pulses Vascular Normal Pulses, Pulses Symmetrical Last 24 Hrs of Labs/Mike: See old records Assessment/Plan As Ranked By This Provider Problem List: 1. Suicidal ideation 2. Depression 3. Seizure-like activity Miscellaneous Miscellaneous Documentation Attending Case Discussed With: Keely HERNANDEZ,Luis A Primary Care Physician: Mercedes Woods Patient sees these Specialists Psychiatry Level of Patient Care: [facility] Consults Needed: Consulting Specialty: Psychiatry Consulting Physician: Dr Walters Reason for Consult: suicidal ideations and depression
[2018-01-05 12:07] VITALS: BP 131/76
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
[2018-01-05 15:47] VITALS: BP 131/76
--- NOTE | 2018-01-05 18:45 | Event Note ---
Event Note Event Note: Rapid response was called on this patient at around 6.30 pm as he was noted to have 'shaking movement' while seated in the kitchen chair. Episode lasted for about 1 minute. RN asked him questions and although he was responding, his speech was mumbled. It was not a typical tonic-clonic seizure, there was no tongue bite, eye rolling backwards, urinary or fecal incontinence and patient was awake and responding. Vitals were stable, fingerstick was normal. Please note, patient had a similar episode 2 days ago for which he was transferred to Telemetry for closer monitoring, he was transferred back to [facility] after medical clearance. Patient has a h/o pseudoseizures and this event tonight did not seem like a typical seizure episode. He was transferred back to his room. He was able to follow commands, responded to questions appropriately but kept his eyes closed, reported the light bothers him. Vitals were stable. Neuro exam: brisk reflexes, power 5/5, sensation intact, cranial nerves intact. Otherwise normal exam. - Stat labs and EKG ordered - Neurochecks Q4 - Sitter at bedside - Neurology consult in AM I reviewed the labs all normal, EKG had no acute changes.
[2018-01-05 19:26] LABS: ABSOLUTE BASOPHIL COUNT 0.1 /CUMM (0.0-0.2); ABSOLUTE EOSINOPHIL COUNT 0.1 /CUMM (0.0-0.7); ABSOLUTE GRANULOCYTE CT 4.4 /CUMM (1.4-6.5); ABSOLUTE LYMPH COUNT 3.2 /CUMM (1.2-3.4); ABSOLUTE MONOCYTE COUNT 0.6 /CUMM (0.10-0.60); BASOPHIL % 0.6 % (0.0-2.0); EOSINOPHIL % 1.1 % (0-5); GRANULOCYTE % 52.9 % (42.2-75.2); HEMATOCRIT 40.2 % (42-52); MEAN CORPUSCULAR HGB 29.7 PG (27.0-31.0); MEAN CORPUSCULAR HGB CONC 33.6 G/DL (33.0-37.0); MEAN CORPUSCULAR VOLUME 88.5 FL (80.0-94.0); MEAN PLATELET VOLUME 8.7 FL (7.4-10.4); PLATELET COUNT 318 /CUMM (130-400); RBC DISTRIBUTION WIDTH 13.5 % (11.5-14.5); RED BLOOD CELL CT 4.54 /CUMM (4.70-6.10); WHITE BLOOD CELL COUNT 8.3 /CUMM (4.8-10.8)
[2018-01-05 20:12] VITALS: BP 144/82
[2018-01-05 22:02] VITALS: BP 140/90
[2018-01-06 08:35] VITALS: BP 147/87
--- NOTE | 2018-01-06 09:15 | CP SOUTH PROGRESS NOTE PSYCH ---
Psych (Inpt) Progress Note Progress Note Include the following elements, when applicable: Involvement in the active treatment of the patient with behavioral observations of the patient and the patient's response to the treatment. Review of the ongoing treatment process in the context of the treatment plan. Indication of how multi-disciplinary staff members are carrying out the treatment plan. Plans for future interventions and recommendations Adriana gallardo just live with her for revision of the treatment plan. Liaison with other physicians/providers. 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 Patient reports that staff told him he had a couple of "episodes" last night but does not remember them. Feels "shaky" today status post pseudoseizure, also with some muscle soreness. Patient taking Tylenol and Motrin. [place] like he was able to get to sleep but not stay asleep well. Patient does not want trazodone, had nightmares in the past. Declines Atarax due to dry mouth. Patient has history of ALTON, does not use CPAP. Patient complained of dry mouth, likely from Abilify. Patient eating well. Having mild arthritic pain. No SI/HI/AVH/SIB. No side effects to medications tolerating cross titration well. Patient shaking his left arm during interview. No rashes or mouth sores. OBJECTIVE: Patient had one episode of pseudoseizure last night, rapid response was called. Patient has already been seen by neuro. VSS and neuro checks have been stable. Pt remained in behavioral control, adherent with staff instructions and medications. Current Medications Sig/Juli Start time Last Medication Dose Route Stop Time Status Admin Acetaminophen 650 MG Q4P PRN 01/05 1215 AC PO Al Hydroxide/Mg 30 ML Q4-6 PRN PRN 01/05 1215 AC Hydroxide PO Aripiprazole 5 MG AT BEDTIME 01/04 2200 AC 01/05 PO 2236 Aripiprazole 2 MG AT BEDTIME 01/04 2200 AC 01/05 PO 223 Cholecalciferol 2,000 IU DAILY 01/05 1000 AC 01/06 PO 0757 Diazepam 5 MG Q24 PRN 01/05 0830 AC 01/05 PO 1026 Diazepam 15 MG AT BEDTIME 01/040 AC 01/05 PO 1910 Folic Acid 1 MG DAILY 01/05 1000 AC 01/06 PO 0756 Gabapentin 600 MG Q6-PRN PRN 01/05 1100 AC 01/06 PO 0125 Gabapentin 600 MG TID 01/04 1600 AC 01/06 PO 0757 Ibuprofen 800 MG TID 01/04 1600 AC 01/06 PO 0756 Lamotrigine 50 MG BID 01/04 1338 AC 01/06 PO 0755 Lorazepam 2 MG .STK-MED ONE 01/05 1831 DC IM 01/05 183 Magnesium Hydroxide 30 ML AT BEDTIME PRN 01/05 1215 AC PO Methotrexate 7.5 MG We 01/10 0800 AC PO Omeprazole 40 MG DAILY AC 01/05 0700 AC 01/06 PO 0608 Sertraline HCl 200 MG DAILY 01/05 1000 AC 01/06 PO 0757 Laboratory Tests 01/05/18 1856: Lactic Acid Cancelled 01/05/18 185: Anion Gap 12, Estimated GFR > 60, BUN/Creatinine Ratio 20.0, Lactic Acid 1.6, Troponin I < 0.01, Prolactin 6.3, CBC w Diff NO MAN DIFF REQ, RBC 4.54 L, MCV 88.5, MCH 29.7, MCHC 33.6, RDW 13.5, MPV 8.7, Gran % 52.9, Lymphocytes % 38.3, Monocytes % 7.1, Eosinophils % 1.1, Basophils % 0.6, Absolute Granulocytes 4.4, Absolute Lymphocytes 3.2, Absolute Monocytes 0.6, Absolute Eosinophils 0.1, Absolute Basophils 0.1 Vital Signs Date Time Temp Pulse Resp B/P B/P Pulse O2 O2 Flow FiO2 Mean Ox Delivery Rate 01/06 835 97.3 72 147/87 01/05 2202 80 140/90 01/05 2012 84 144/82 01/05 1547 86 131/76 01/05 1207 83 131/76 01/05 09 96.8 MSE: GENERAL: Alert and oriented x3, good eye contact, well-groomed in T-shirt and shorts, no apparent distress, with sitter. SPEECH: Moderate rate and volume, normal prosody, fluent MOTOR: Shaking left arm during interview MOOD: "anxious" AFFECT: Worried, mood congruent, constricted range, non-labile, well related THOUGHT PROCESS: Logical, linear and goal-directed THOUGHT CONTENT: No SI/SI/AVH/SIB, no apparent grandiosity, paranoia, delusions , obsessions, ruminations COGNITION: No apparent deficit in attention, memory or concentration JUDGMENT: fair INSIGHT: fair ASSESSMENT: 47-year-old engaged white male who was admitted initially for thoughts of suicide and worsening depression. He was sent to the medical floor after having a seizure on the inpatient psychiatric unit. He only spent 1 night on the medical floor. He returned 01/05/2018 for the continuation of the same episode of care. Patient continues to have pseudoseizure episodes on the unit several times a day which she attributes to anxiety. Tolerating meds cross titration. Continue plan. DSM 5 Diagnosis(es): Major depressive disorder Seizure disorder Multiple concussions/TBI Treatment Plan: Resume inpatient psychiatric care: Safety checks every 15 minutes, group therapy , milieu therapy, nursing assessments, education on vital signs by the nursing staff. Aftercare planning and collateral information by social work, psychiatrist to evaluate the patient's mental state daily and evaluate his medications daily PLAN: -maintain safety, vs tid, 1:1 sitter for fall risk -continue meds, we'll consider up titration of Lamictal on Monday, feeling shaky today -Continue Abilify at 7 mg daily #2 continue lamotrigine at the new dose of 50 mg twice daily and gabapentin was added for seizure prevention while the Lamictal is being titrated up. -Continue 15 mg of diazepam at bedtime -Increased sertraline to 200 mg every morning on 01/05 -Reduce allowance of anxiety medication to only once daily -Rapid response for pseudoseizures per nursing discretion, but do call if any signs of injury or seizure activity that is not his typical pseudoseizure movements. -continue plan
[2018-01-06 11:59] VITALS: BP 132/75
[2018-01-06 15:56] VITALS: BP 133/82
[2018-01-06 20:14] VITALS: BP 102/64
--- NOTE | 2018-01-07 00:03 | CP SOUTH PROGRESS NOTE PSYCH ---
See Addendum Psych (Inpt) Progress Note Progress Note PROGRESS NOTE SUBJECTIVE: Patient had recurrence of pseudoseizure this morning. Patient was lying in bed fell off of bed onto floor striking her head against either the wall or the floor, no signs of injury. Patient had seizure-like full body jerking movements for approximately 4 minutes at which point he appeared postictal, was eventually oriented to self and place "Sanjay." Patient was able to state that it was "Monday" (off by 1 day), and that it was "December. " VSS following episode. As patient regained consciousness, he winced from pain and pointed to back of head, and neck. Rapid response was called, C-spine was placed, patient placed on stretcher and taken for CT of head and neck clearance by Dr. Mcallister's team. Sitter accompanied patient. Not able to do additional psychiatric assessment at this time. OBJECTIVE: Per nursing, patient slept well last night. Neuro checks have been within normal limits over last 2 days. VSS. Current Medications Sig/Juli Start time Last Medication Dose Route Stop Time Status Admin Acetaminophen 650 MG .STK-MED ONE 01/06 1248 DC PO 01/06 1249 Acetaminophen 650 MG Q4P PRN 01/05 1215 AC 01/06 PO 1248 Al Hydroxide/Mg 30 ML Q4-6 PRN PRN 01/05 1215 AC Hydroxide PO Aripiprazole 5 MG AT BEDTIME 01/04 2200 AC 01/06 PO 2131 Aripiprazole 2 MG AT BEDTIME 01/04 2200 AC 01/06 PO 2131 Cholecalciferol 2,000 IU DAILY 01/05 1000 AC 01/06 PO 0757 Diazepam 5 MG Q24 PRN 01/05 0830 AC 01/06 PO 1824 Diazepam 15 MG AT BEDTIME 01/04 2200 AC 01/06 PO 2131 Folic Acid 1 MG DAILY 01/05 1000 AC 01/06 PO 0756 Gabapentin 600 MG Q6-PRN PRN 01/05 1100 AC 01/06 PO 0125 Gabapentin 600 MG TID 01/04 1600 AC 01/06 PO 2132 Ibuprofen 800 MG TID 01/04 1600 AC 01/06 PO 2131 Lamotrigine 50 MG BID 01/04 1338 AC 01/06 PO 2131 Magnesium Hydroxide 30 ML AT BEDTIME PRN 01/05 1215 AC PO Methotrexate 7.5 MG We 01/10 0800 AC PO Omeprazole 40 MG DAILY AC 01/05 0700 AC 01/07 PO 0656 Sertraline HCl 200 MG DAILY 01/05 1000 AC 01/06 PO 0757 Laboratory Tests 01/05/18 1856: Lactic Acid Cancelled 01/05/18 185: Anion Gap 12, Estimated GFR > 60, BUN/Creatinine Ratio 20.0, Lactic Acid 1.6, Troponin I < 0.01, Prolactin 6.3, CBC w Diff NO MAN DIFF REQ, RBC 4.54 L, MCV 88.5, MCH 29.7, MCHC 33.6, RDW 13.5, MPV 8.7, Gran % 52.9, Lymphocytes % 38.3, Monocytes % 7.1, Eosinophils % 1.1, Basophils % 0.6, Absolute Granulocytes 4.4, Absolute Lymphocytes 3.2, Absolute Monocytes 0.6, Absolute Eosinophils 0.1, Absolute Basophils 0.1 Vital Signs Date Time Temp Pulse Resp B/P B/P Pulse O2 O2 Flow FiO2 Mean Ox Delivery Rate 01/07 0743 97.2 80 136/84 01/06 2014 97.5 68 102/64 01/06 1556 80 133/82 01/06 1159 83 132/75 01/06 0835 97.3 72 147/87 MSE: GENERAL: Postictal, alert to self and place, eyes closed, in c-collar, in moderate distress. SPEECH: Soft, minimal MOTOR: Full body jerking movements for approximately 4 minutes then curling up in right lateral recumbent. MOOD: Not able to assess AFFECT: Postictal THOUGHT PROCESS: Linear, brief THOUGHT CONTENT: Not able to assess COGNITION: Impaired JUDGMENT: Impaired INSIGHT: Impaired ASSESSMENT: 47-year-old engaged white male who was admitted initially for thoughts of suicide and worsening depression. He was sent to the medical floor after having a seizure on the inpatient psychiatric unit. He only spent 1 night on the medical floor. He returned 01/05/2018 for the continuation of the same episode of care. Patient has continued to have multiple pseudoseizures per day since return from medical floor, with last one just prior to this note, patiently currently being evaluated for head and neck clearance by rapid response team. DSM 5 Diagnosis(es): Major depressive disorder Seizure disorder Multiple concussions/TBI PLAN: -When patient returns from ED, maintain safety, vs tid, 1:1 sitter for fall risk -Would consider fall protection bed with side rails and continuing sitter -f/u CTo[facility] fall -No med changes today, continue as before -Continue Abilify at 7 mg daily #2 continue lamotrigine at the new dose of 50 mg twice daily and gabapentin was added for seizure prevention while the Lamictal is being titrated up. -Continue 15 mg of diazepam at bedtime -sertraline increased to 200 mg every morning on 01/05 -Reduce allowance of anxiety medication to only once daily -Rapid response for pseudoseizures per nursing discretion, but do call if any signs of injury or seizure activity that is not his typical pseudoseizure movements. -continue plan is being titrated up. -Continue 15 mg of diazepam at bedtime -Increased sertraline to 200 mg every morning on 01/05 -Reduce allowance of anxiety medication to only once daily -Rapid response for pseudoseizures per nursing discretion, but do call if any signs of injury or seizure activity that is not his typical pseudoseizure movements. -continue plan
[2018-01-07 07:43] VITALS: BP 136/84
[2018-01-07 10:39] VITALS: BP 130/70
--- NOTE | 2018-01-07 11:19 | CT SCAN REPORT ---
CT HEAD WITHOUT IV CONTRAST CT CERVICAL SPINE WITHOUT IV CONTRAST INDICATION: Unwitnessed fall. COMPARISON: Head and cervical spine CT 07/06/2017. TECHNIQUE: Multidetector CT acquisitions of the head and cervical spine were obtained without IV contrast. Multiplanar reformats were acquired and utilized for image interpretation. FINDINGS: HEAD: Head CT is very limited by motion artifact. No definite intracranial hemorrhage is identified though small volume hemorrhage could be obscured by the degree of artifact on this study. Black to white matter differentiation is diffusely maintained without evidence of an evolved acute territorial infarct. The basilar cisterns are preserved. No significant soft tissue abnormality. No acute osseous abnormality. The paranasal sinuses and the mastoid air cells are well-aerated. CERVICAL SPINE: There is anatomic alignment of the vertebral bodies and posterior elements. There is no acute fracture and there is no acute subluxation. The craniocervical and atlantoaxial articulations are normal. There is no prevertebral soft tissue swelling. Retropharyngeal course of the internal carotid arteries and portions of the common carotid arteries again noted. The visualized lung apices are clear. IMPRESSION: 1. Head CT is very limited by motion artifact. No definite intracranial hemorrhage is identified though small volume hemorrhage could be obscured by the degree of artifact on this study. 2. No acute osseous abnormality within the cervical spine.
[2018-01-07 12:13] VITALS: BP 104/79
--- NOTE | 2018-01-07 14:37 | Cons- Neurology ---
General Information and HPI Consulting Request Date of Consult: 01/07/18 Requested By: Luis A Riggs MD Reason for Consult: History of pseudoseizures, with several spells here while on the psychiatric unit Source of Information: patient, old records Exam Limitations: no limitations History of Present Illness: Patient states that he was followed by Dr. Karan Wynn over 10 years ago at [facility]. By patient report he had inpatient monitoring that showed psychogenic nonepileptic seizures. he states he is followed by a psychiatrist in [place] by the name of Juarez Cee. he believes he was on Tegretol years ago but this was stopped because it "did not help" per [facility] EMR notes, in February 2017, he presented to [facility] as a "stroke alert", at which time he was described as having L weakness and nonsensical speech. he was found to have a nonphysiologic exam consistent with conversion disorder. EEG 01/24/17 Normal awake and asleep CAV-EEG 01/23-. No electrographic seizures, interictal epileptiform discharges, periodic discharges or lateralized rhythmic delta activity were seen. One habitual event was recorded 01/23/2017 22:36 to 23:15 hours. No electrographic seizures, clinical seizures or myoclonus were seen. The patient was awake throughout with normal awake background EEG activity. The patient appeared agitated with startle reactions to light touch and tremulousness with a sinus tachycardia. The shaking movements involving the Right hand much more than the Left hand appeared atypical for seizure activity and stopped when the hands were touched. Comment: The event suggested PNES and appeared consistent with a panic attack. Several days ago, he was in the common area at the psychiatric unit when fellow patient is alerted staff that he was behaving unusually. He was found to have transiently slurred speech. today, he apparently fell out of bed. Nursing staff reports that when they found him his eyes were open and his limbs were shaking. There was no clear loss of consciousness. On my interview of the patient, he freely admits a longstanding history of pseudoseizures for which he is managed by his outpatient psychiatrist. He is aware of some of the event triggers, which mainly include emotional distress. He states that he actually does drive and does work part-time at [employer] [facility] [place]. He denies any family history of epilepsy or other neurologic disease. Allergies/Medications Allergies: Coded Allergies: hydroxychloroquine (From PLAQUENIL) (Intermediate, SWEATS AND CHILLS 12/22/16) venom-honey bee (BEE VENOM (HONEY BEE)) (Intermediate, LOCAL REACTION 12/22/16) atenolol (Mild, RASH 12/22/16) labetalol (Mild, RASH 12/22/16) pimozide (From ORAP) (ELEVATED HR 12/22/16) lorazepam (Severe, HALLUCINATIONS AND AGRESSIVE BEHAVIOR 12/22/16) bupropion (Intermediate, TACHYCARDIA, ANXIETY 12/22/16) divalproex sodium (From DEPAKOTE) (HALLUCINATIONS 10/03/17) haloperidol (MAKES HIM JUMPY 12/22/16) Home Med List: Aripiprazole (Abilify) 5 MG TABLET 5 MG PO AT BEDTIME moods Aripiprazole (Abilify) 2 MG TABLET 2 MG PO AT BEDTIME moods Cholecalciferol (Vitamin D3) (Vitamin D) 2,000 UNIT TABLET 1 TAB PO DAILY SUPPLEMENT (Reported) Diazepam 5 MG TABLET 15 MG PO AT BEDTIME anxiety Diazepam 5 MG TABLET 5 MG PO Q12P PRN ANXIETY/INSOMNIA Folic Acid 1 MG TABLET 1 MG PO DAILY folate supplement Gabapentin 300 MG CAPSULE 600 MG PO AT BEDTIME NEEDED PRN INSOMNIA Ibuprofen 800 MG TABLET 800 MG PO TID pain Lamotrigine (Lamictal) 25 MG TABLET 25 MG PO BID moods Methotrexate 2.5 MG TABLET 3 TAB PO QWED PSORIATIC ARTHRITIS (Reported) Omeprazole 20 MG CAPSULE.DR 40 MG PO DAILY AC GERD Sertraline HCl 50 MG TABLET 150 MG PO DAILY depression Current Medications: Current Medications Sig/Juli Start time Last Medication Dose Route Stop Time Status Admin Acetaminophen 650 MG Q4P PRN 01/05 1215 AC 01/07 PO 1101 Al Hydroxide/Mg 30 ML Q4-6 PRN PRN 01/05 1215 AC Hydroxide PO Aripiprazole 5 MG AT BEDTIME 01/04 2200 AC 01/06 PO 2131 Aripiprazole 2 MG AT BEDTIME 01/04 220 AC 01/06 PO 2131 Cholecalciferol 2,000 IU DAILY 01/05 1000 AC 01/07 PO 0859 Diazepam 5 MG Q24 PRN 01/05 0830 AC 02/10 PO 1824 Diazepam 15 MG AT BEDTIME 01/04 2200 AC 01/06 PO 2131 Folic Acid 1 MG DAILY 01/05 1000 AC 01/07 PO 0859 Gabapentin 600 MG Q6-PRN PRN 01/05 1100 AC 01/07 PO 1102 Gabapentin 600 MG TID 01/04 1600 AC 01/07 PO 0859 Ibuprofen 800 MG TID 01/04 1600 AC 01/07 PO 0859 Lamotrigine 50 MG BID 01/04 1338 AC 01/07 PO 0857 Magnesium Hydroxide 30 ML AT BEDTIME PRN 01/05 1215 AC PO Methotrexate 7.5 MG We 01/10 0800 AC PO Omeprazole 40 MG DAILY AC 01/05 0700 AC 01/07 PO 0656 Sertraline HCl 200 MG DAILY 01/05 1000 AC 01/07 PO 0859 Review of Systems Review of Systems: currently in a hard cervical collar, pending clearance of the cervical spine wears eyeglasses denies headache, dizziness, chest pain, palpitations, shortness of breath no fever or chills Past History Medical History Neurological: PSEUDO SEIZURES EENT: NONE Cardiovascular: hypertension Respiratory: NONE Gastrointestinal: GERD Hepatic: NONE Renal: ENLARGED PROSTATE Musculoskeletal: degen joint disease, psoariatic arthritis, CARPAL TUNNEL Psychiatric: anxiety, depression, CONVERSION DISORDER PTSD OCD Endocrine: NONE Blood Disorders: NONE Cancer(s): NONE DATA CAPTURE SPECIALIST/Reproductive: NONE Surgical History Surgical History: cholecystectomy Family History Relations & Conditions If Any: Relation not specified for: *No pertinent family history Psychosocial History Where Do You Live? Other Primary Language: Maori Functional Ability ADLs Independent: dressing, eating, toileting, bathing. Ambulation: independent IADLs Independent: shopping, housework, finances, food prep, telephone, transportation , medication admin. Exam & Diagnostic Data Vital Signs and I&O Vital Signs Date Time Temp Pulse Resp B/P B/P Pulse O2 O2 Flow FiO2 Mean Ox Delivery Rate 01/07 1213 84 104/79 01/07 1039 97.9 94 130/70 01/07 0743 97.2 80 136/84 01/06 2014 97.5 68 102/64 01/06 1556 80 133/82 Intake & Output 01/07 1600 01/07 0800 01/07 0000 Intake Total Output Total Balance Patient 341 lb Weight Physical Exam: awake, Seems lethargic by way of mumbling speech, however responds readily and appropriately to questions, and is asking when the neck collar can be removed head normocephalic atraumatic Heart regular rate and rhythm abdomen soft extremities without clubbing cyanosis or edema intact peripheral pulses Neurologic exam: As above, behaved in the lethargic fashion, but subsequent behavior suggest to full alertness Oriented to person place and time fluent speech though hypophonic and mildly dysarthric Cranial nerves: Visual walls full to confrontation fundi benign pupils equal round reactive light obstructive was full facial movements symmetric tongue protrudes midline Facial sensation intact grossly intact hearing symmetric shoulder shrug motor: Normal muscle bulk tone and strength, with no abnormal involuntary movements light touch sensation intact deep tendon reflexes symmetrically trace to absent plantar responses flexor gait not tested Last 48 Hours of Lab Results: Laboratory Tests 01/05 01/05 1856 1856 Chemistry Sodium (137 - 145 mmol/L) 139 Potassium (3.5 - 5.1 mmol/L) 4.1 Chloride (98 - 107 mmol/L) 101 Carbon Dioxide (22 - 30 mmol/L) 26 Anion Gap (5 - 16) 12 BUN (9 - 20 mg/dL) 16 Creatinine (0.7 - 1.2 mg/dL) 0.8 Estimated GFR (>60 ml/min) > 60 BUN/Creatinine Ratio (7 - 25 %) 20.0 Lactic Acid (0.7 - 2.1 mmol/L) Cancelled 1.6 Troponin I (<0.11 ng/ml) < 0.01 Prolactin (3.7 - 17.9 ng/mL) 6.3 Hematology CBC w Diff NO MAN DIFF REQ WBC (4.8 - 10.8 /CUMM) 8.3 RBC (4.70 - 6.10 /CUMM) 4.54 L Hgb (14.0 - 18.0 G/DL) 13.5 L Hct (42 - 52 %) 40.2 L MCV (80.0 - 94.0 FL) 88.5 MCH (27.0 - 31.0 PG) 29.7 MCHC (33.0 - 37.0 G/DL) 33.6 RDW (11.5 - 14.5 %) 13.5 Plt Count (130 - 400 /CUMM) 318 MPV (7.4 - 10.4 FL) 8.7 Gran % (42.2 - 75.2 %) 52.9 Lymphocytes % (20.5 - 51.1 %) 38.3 Monocytes % (1.7 - 9.3 %) 7.1 Eosinophils % (0 - 5 %) 1.1 Basophils % (0.0 - 2.0 %) 0.6 Absolute Granulocytes (1.4 - 6.5 /CUMM) 4.4 Absolute Lymphocytes (1.2 - 3.4 /CUMM) 3.2 Absolute Monocytes (0.10 - 0.60 /CUMM) 0.6 Absolute Eosinophils (0.0 - 0.7 /CUMM) 0.1 Absolute Basophils (0.0 - 0.2 /CUMM) 0.1 Imaging/Other Studies: PATIENT: CINDY LAGUNAS PRESENT AGE: 47 PATIENT ACCOUNT NO: [id number] : 72 LOCATION: [facility] ORDERING PHYSICIAN: Gabriel Ponce MD SERVICE DATE: 01/07/18-1045 EXAM TYPE: CAT - CT CERV SPINE WO IV CONTRAST; CT HEAD WO IV CONTRAST CT HEAD WITHOUT IV CONTRAST CT CERVICAL SPINE WITHOUT IV CONTRAST INDICATION: Unwitnessed fall. COMPARISON: Head and cervical spine CT 07/06/2017. TECHNIQUE: Multidetector CT acquisitions of the head and cervical spine were obtained without IV contrast. Multiplanar reformats were acquired and utilized for image interpretation. FINDINGS: HEAD: Head CT is very limited by motion artifact. No definite intracranial hemorrhage is identified though small volume hemorrhage could be obscured by the degree of artifact on this study. Black to white matter differentiation is diffusely maintained without evidence of an evolved acute territorial infarct. The basilar cisterns are preserved. No significant soft tissue abnormality. No acute osseous abnormality. The paranasal sinuses and the mastoid air cells are well-aerated. CERVICAL SPINE: There is anatomic alignment of the vertebral bodies and posterior elements. There is no acute fracture and there is no acute subluxation. The craniocervical and atlantoaxial articulations are normal. There is no prevertebral soft tissue swelling. Retropharyngeal course of the internal carotid arteries and portions of the common carotid arteries again noted. The visualized lung apices are clear. IMPRESSION: 1. Head CT is very limited by motion artifact. No definite intracranial hemorrhage is identified though small volume hemorrhage could be obscured by the degree of artifact on this study. 2. No acute osseous abnormality within the cervical spine. DICTATED BY: Shamar Felipe MD DATE/TIME DICTATED:01/07/181104 CONCRETE VAULT MAKER:DANITA DATE/TIME TRANSCRIBED:01/07/181104 CONFIDENTIAL, DO NOT COPY WITHOUT APPROPRIATE AUTHORIZATION. <Electronically signed in Other Vendor System> SIGNED BY: Shamar Felipe MD 01/07/18 6319 Assessment/Plan Assessment: long history of nonepileptic seizures and conversion reaction Recommendations: no need for anticonvulsant medication for the purpose of "seizure control "at this time He would likely benefit from cognitive behavioral therapy should his spells increase in frequency in severity despite CBT and general psychotherapy, consider a re-evaluation in the [place] epilepsy monitoring unit neurology signing off Consult Acknowledgment - Thank you for your consult request.
[2018-01-07 15:49] VITALS: BP 134/79
[2018-01-07 20:09] VITALS: BP 143/76
[2018-01-08 07:53] VITALS: BP 137/76
--- NOTE | 2018-01-08 10:28 | CP SOUTH PROGRESS NOTE PSYCH ---
Psych (Inpt) Progress Note Progress Note Vitals Blood Pressure 137/76 01/08/18 0753 Pulse Rate 78 01/08/18 0753 Temperature 97.1 01/08/18 0753 Mental Status Examination: was alert and oriented to time place and person. He did not seem to be in physical distress. He was stooping a little but had steady gait, calm and cooperative, normal psychomotor activity; no abnormal behaviors, normal speech not pressured; good range of affect, mood is depressed, still having intrusive thoughts about suicide on-and-off, an occasional thought of suicide, does not linger; he denied homicidal ideation, denied hallucinations, denied feeling paranoid, there were no delusions. There were no difficulties with thought organization, good Insight, good judgment, no cognitive deficits noted, no memory deficits noted Assessment: is a 47-year-old engaged White male who was admitted to the inpatient psychiatric unit for thoughts of suicide and worsening depression. He was sent to the medical floor after having a seizure on the inpatient psychiatric unit. He only spent 1 night on the medical floor. He returned 01/05/2018 for the continuation of the same episode of care. Patient has continued to have seizures since return from medical floor. Diagnoses: Major depressive disorder Seizure disorder Multiple concussions/TBI Plan: D/C PRN Diazepam Increase Lamotrigine to 75 mg twice daily Increase regular Gabapentin to 900 mg TID Continue regular schedule Diazepam 15 mg at bedtime Continue PRN Gabapentin 600 mg at bedtime as needed for insomnia Continue Abilify 7 mg at bedtime Continue Zoloft 200 mg daily Continue Methotrexate Inpatient psychiatric care: safety checks Q15 minutes, group therapy milieu therapy, Nursing assessments and education by nursing staff vital signs by the nurses aides, Aftercare planning and collateral information by social work; patient will be evaluated daily and medications will be evaluated daily by a psychiatrist
[2018-01-08 12:19] VITALS: BP 141/85
--- NOTE | 2018-01-08 15:03 | SOCIAL WORKER PROG NOTE PSYCH ---
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 is currently using a walker on the unit, due to possible fall risk. This came about after seizure activity over this past weekend. reports lessened anxiety today, but struggling with the intrusive thoughts about hurting himself. He doesn't think he would act on this thought, but is afraid he could be impulsive. He does not have a hx of suicide attempts. He views his son as a protective factor. He stated if his son wasn't around he probably would kill himself. Encouraged him to think of things that make life worth living. He showed us some artwork that he has been doing since here in the hospital. He is talented in his ability to draw. Encouraged healthy distractions. No discharge date identified at this time, due to continued SI.
[2018-01-08 16:14] VITALS: BP 154/79
[2018-01-08 19:50] VITALS: BP 144/86
[2018-01-08 21:00] VITALS: BP 133/86
[2018-01-08 21:29] VITALS: BP 133/86
[2018-01-09 07:26] VITALS: BP 121/78
--- NOTE | 2018-01-09 10:07 | SOCIAL WORKER PROG NOTE PSYCH ---
Social Work Progress Note Progress Note CINDY LAGUNAS [id number] 1970 CINDY LAGUNAS [id number] Pended Authorization # Client Authorization # Type of Request [id number] CONCURRENT Date of Admission/ Start of Services Requested From Submission Date 01/01/2018 01/09/2018 01/09/2018
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
[2018-01-09 11:55] VITALS: BP 137/80
--- NOTE | 2018-01-09 11:59 | CP SOUTH PROGRESS NOTE PSYCH ---
Psych (Inpt) Progress Note Progress Note Vital Signs Date Time Temp Pulse Resp B/P B/P Pulse O2 O2 Flow FiO2 Mean Ox Delivery Rate 01/09 1155 83 137/80 01/09 1000 95.7 01/09 0726 95.7 83 121/78 01/08 2129 101 133/86 01/08 2100 101 20 133/86 01/08 1950 86 144/86 01/08 1614 87 154/79 01/08 1219 78 141/85 Mental Status Examination: is sedated /tired around noontime. Arousable, oriented to time place and person. He is not in physical distress, calm and cooperative, reduced psychomotor activity; no abnormal behaviors, normal speech/ not pressured; good range of affect, He is depressed and still having intrusive thoughts about suicide on-and-off, he denied homicidal ideation, denied hallucinations, denied feeling paranoid, there were no delusions. no difficulties with thought organization, no cognitive deficits noted Assessment: is a 47-year-old engaged White male who was admitted to the inpatient psychiatric unit for thoughts of suicide and worsening depression. He was sent to the medical floor after having a seizure on the inpatient psychiatric unit. He only spent 1 night on the medical floor. He returned 01/05/2018 for the continuation of the same episode of care. Patient may have had a fall last night but not seizures Diagnoses: Major depressive disorder Seizure disorder Multiple concussions/TBI Plan: Continue Lamotrigine 75 mg twice daily Reduce regular Gabapentin to 600 mg AM and 600 mg around %PM and 900 mg at bedtime Continue regular schedule Diazepam 15 mg at bedtime D/C PRN Gabapentin Ativan 0.5 mg as needed for anxiety up to [id number] Continue Abilify 7 mg at bedtime Continue Zoloft 200 mg daily Continue Methotrexate Inpatient psychiatric care: safety checks Q15 minutes, group therapy milieu therapy, Nursing assessments and education by nursing staff vital signs by the nurses aides, Aftercare planning and collateral information by social work; patient will be evaluated daily and medications will be evaluated daily by a psychiatrist
[2018-01-09 15:52] VITALS: BP 138/77
[2018-01-09 19:54] VITALS: BP 100/77
[2018-01-10] VITALS (7 sets, daily range): BP systolic 126–178; BP diastolic 66–86
--- NOTE | 2018-01-10 10:23 | CP SOUTH PROGRESS NOTE PSYCH ---
Psych (Inpt) Progress Note Progress Note Vital Signs Date Time Temp Pulse B/P 01/10 0729 96.7 84 128/79 01/10 0247 72 128/70 01/10 0210 92 128/66 01/09 195 98.6 81 100/77 Mental Status Examination: reported that he feels "doped up." He reported that he woke up around 2: 30 AM or so and had thoughts of wanting to go to the nursing station and getting a scissor and cutting his wrists was oriented to time place and person. He was calm and cooperative, reduced psychomotor activity; no abnormal behaviors, normal speech/ not pressured; reported that he feels that more medications have caused him to feel more depressed. He said he was stable with just Zoloft and Valium in the past. denied homicidal ideation, denied hallucinations, denied feeling paranoid, there were no delusions. There were no difficulties with thought organization. Assessment: is a 47-year-old engaged White male who was admitted to the inpatient psychiatric unit for thoughts of suicide and worsening depression. Diagnoses: Major depressive disorder Seizure disorder Multiple concussions/TBI Plan: Increase Lamotrigine to 100 mg twice daily Reduce regular Gabapentin to 600 mg TID Continue regular schedule Diazepam 15 mg at bedtime D/C Ativan Alprazolam 0.5 mg Q 6hours PRN anxiety/thoughts of suicide Reduce Abilify to 5 mg at bedtime Continue Zoloft 200 mg daily Continue Methotrexate once a week Inpatient psychiatric care: safety checks Q15 minutes, group therapy milieu therapy, Nursing assessments and education by nursing staff vital signs by the nurses aides, Aftercare planning and collateral information by social work; patient will be evaluated daily and medications will be evaluated daily by a psychiatrist
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
[2018-01-11 00:31] VITALS: BP 128/85
--- NOTE | 2018-01-11 07:36 | CP SOUTH PROGRESS NOTE PSYCH ---
Psych (Inpt) Progress Note Progress Note Vital Signs: Temp. 97.7 Pulse: 87 BP: 148/85 Mental Status Examination: reported that he is still feeling too medicated/tired, attributed that to Gabapentin He reported that he did not have thoughts of wanting to to kill self in the past 24 hours. was oriented to time place and person. He was calm and cooperative, reduced psychomotor activity; no abnormal behaviors, normal speech/ not pressured; reported that he is still feeling depressed. denied homicidal ideation, denied hallucinations, and denied feeling paranoid. There were no delusions. There were no difficulties with thought organization. Assessment: is a 47-year-old engaged White male who was admitted to the inpatient psychiatric unit on 2017 for thoughts of suicide and worsening depression. Diagnoses: Major Depressive disorder Seizure Disorder Multiple Concussions/TBI Plan: Increase Lamotrigine to 150 mg twice daily Reduce Gabapentin to 400 mg TID Continue regular schedule Diazepam 15 mg at bedtime Continue Alprazolam 0.5 mg Q 6hours PRN anxiety/thoughts of suicide Continue Abilify 5 mg at bedtime Continue Zoloft 200 mg daily Continue Methotrexate once a week Continue Inpatient psychiatric care: safety checks Q15 minutes, group therapy milieu therapy, Nursing assessments and education by nursing staff vital signs by the nurses aides, Aftercare planning and collateral information by social work; The patient will be evaluated daily and medications will be evaluated daily by a psychiatrist
[2018-01-11 07:54] VITALS: BP 148/85
[2018-01-11 12:18] VITALS: BP 90/52
[2018-01-11 16:09] VITALS: BP 129/77
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
[2018-01-11 19:50] VITALS: BP 137/79
[2018-01-12] VITALS (12 sets, daily range): BP systolic 106–180; BP diastolic 43–97
--- NOTE | 2018-01-12 09:00 | CP SOUTH PROGRESS NOTE PSYCH ---
Psych (Inpt) Progress Note Progress Note Vital Signs Date Time Temp Pulse B/P Pulse O2 O2 Flow FiO2 Ox Delivery Rate 01/12 0752 98.1 64 180/93 01/12 0751 97.2 57 130/52 01/12 0750 96.1 57 106/64 01/12 0749 97.0 95 142/97 01/12 0747 98.5 90 109/68 01/12 0741 97.3 79 137/75 01/12 0740 97.3 98 141/70 01/12 0736 97.6 64 114/43 01/12 0736 98.1 98 133/79 01/12 0735 97.0 75 119/67 01/11 1950 98.7 80 137/79 01/11 1609 84 129/77 01/11 1218 79 90/52 Mental Status Examination: reported that he is tired, reported that he had some thoughts of wanting to to kill self last night. was oriented to time place and person. He was calm and cooperative, reduced psychomotor activity; no abnormal behaviors, normal speech/ not pressured; reported that he is still feeling depressed. denied homicidal ideation, denied hallucinations, and denied feeling paranoid. There were no delusions. There were no difficulties with thought organization. Assessment: is a 47-year-old engaged White male who was admitted to the inpatient psychiatric unit on 2017 for thoughts of suicide and worsening depression. 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 Seizure Disorder Multiple Concussions/TBI Plan: Continue Lamotrigine 150 mg twice daily Reduce Gabapentin to 300 mg TID Continue regular schedule Diazepam 15 mg at bedtime Continue Alprazolam 0.5 mg Q 6hours PRN anxiety/thoughts of suicide Continue Abilify 5 mg at bedtime Continue Zoloft 200 mg daily Continue Methotrexate once a week Continue Inpatient psychiatric care: safety checks Q15 minutes, group therapy milieu therapy, Nursing assessments and education by nursing staff vital signs by the nurses aides, Aftercare planning and collateral information by social work; The patient will be evaluated daily and medications will be evaluated daily by a psychiatrist
--- NOTE | 2018-01-12 12:08 | SOCIAL WORKER PROG NOTE PSYCH ---
Social Work Progress Note Progress Note Dr. Jordan and I met together with this morning to assess readiness for discharge. immediately stated that he was not ready today and would be ready on Monday. He feels he needs a little more time to work through his intrusive thoughts. He stated he didn't have a good night last night and ended up speaking with one of the nurses. We talked about IOP vs. outpatient. stated he really wanted to do the IOP and feels it would be beneficial to him. Shared our concerns related to the seizure activity and him being brought to the ER from IOP. Told him that if it is frequently happening it could be a barrier to him attending the program. stated that he feels that the seizures will reduce once he is home, because it normally doesn't happen this frequently. Spoke with Anne Noriega LPC (IOP coordinator for [facility]). Shared information in regards to the seizure activity. They will give him the opportunity to try IOP and reinforce the concerns of him having to go to the ER if seizures are frequently happening. Intake is scheduled for Monday at 1:15pm. Spoke with Thu Rodriguez's significant other. Relayed the plan around d/c. She will discuss it further with and see if she will need to attend the intake with him or pick him up after.
[2018-01-13 07:43] VITALS: BP 113/67
--- NOTE | 2018-01-13 10:18 | CT SCAN REPORT ---
EXAMINATION: CT HEAD WITHOUT CONTRAST CLINICAL INFORMATION: Fall. Headache. COMPARISON: Head CT from 01/07/2018. TECHNIQUE: Contiguous axial imaging was performed from the skull base to vertex without intravenous administration of contrast. DLP: 630 mGy-cm FINDINGS: There is no evidence of acute intracranial hemorrhage or territorial infarction. No abnormal mass effect or midline shift is seen. Black to white matter differentiation is well preserved. No extra-axial fluid collections are identified. The ventricles are normal in size. There is no abnormal attenuation within the brain parenchyma. The osseous structures and soft tissues are normal. The mastoid air cells and visualized portions of the paranasal sinuses are well aerated. IMPRESSION: No acute intracranial pathology.
[2018-01-13 12:11] VITALS: BP 104/59
--- NOTE | 2018-01-13 12:12 | CP SOUTH PROGRESS NOTE PSYCH ---
Psych (Inpt) Progress Note Progress Note Include the following elements, when applicable: Involvement in the active treatment of the patient with behavioral observations of the patient and the patient's response to the treatment. Review of the ongoing treatment process in the context of the treatment plan. Indication of how multi-disciplinary staff members are carrying out the treatment plan. Plans for future interventions and recommendations for revision of the treatment plan. Liaison with other physicians/providers. Progress Note: Pt notes that mood is "I'm here." He feels that PNES have increased since admission 2/2 anxious and restlessness. He did have PNES overnight and fell and hit his head. He was seen by the HOD and CT head was ordered. CT neg. Pt notes BARRERA this morning but no other complaints. He notes family has been very supportive and fiance and sister having been helpful. He notes continued difficulties with sleep and occasional NMs. Denies SI or HI. Current Medications Sig/Juli Start time Last Medication Dose Route Stop Time Status Admin Acetaminophen 650 MG Q4P PRN 01/05 1215 AC 01/13 PO 0837 Al Hydroxide/Mg 30 ML Q4-6 PRN PRN 01/05 1215 AC Hydroxide PO Alprazolam 0.5 MG Q6-PRN PRN 01/10 1015 AC 01/13 PO 01/17 1014 0145 Aripiprazole 5 MG AT BEDTIME 01/04 2200 AC 01/12 PO 2122 Cholecalciferol 2,000 IU DAILY 01/05 1000 AC 01/13 PO 0959 Diazepam 15 MG AT BEDTIME 01/04 2200 AC 01/12 PO 2124 Folic Acid 1 MG DAILY 01/05 1000 AC 01/13 PO 0958 Gabapentin 300 MG TID 01/12 1600 AC 01/13 PO 0959 Gabapentin 400 MG TID 01/11 1600 DC 01/12 PO 0914 Ibuprofen 800 MG TID 01/04 1600 AC 01/13 PO 0959 Lamotrigine 150 MG BID 01/11 2200 AC 01/13 PO 0958 Magnesium Hydroxide 30 ML AT BEDTIME PRN 01/05 1215 AC PO Melatonin 5 MG AT BEDTIME 01/13 2200 AC PO Methotrexate 7.5 MG We 01/10 0800 AC 01/10 PO 0835 Omeprazole 40 MG DAILY AC 01/05 0700 AC 01/13 PO 0644 Ondansetron HCl 4 MG ONCE ONE 01/13 915 DC 01/13 PO 01/13 0916 0913 Sertraline HCl 200 MG DAILY 01/05 1000 AC 01/13 PO 0959 Vital Signs Date Time Temp Pulse Resp B/P B/P Pulse O2 O2 Flow FiO2 Mean Ox Delivery Rate 01/13 0743 96.2 68 113/67 01/12 195 97.8 84 127/55 01/12 1541 83 136/69 MSE General appearance: good hygiene and grooming; Attitude: cooperative; Eye contact: appropriate; Movement: no psychomotor agitation or slowing; Speech: nl fluency, nl rate/rhythm, nl volume, nl prosody; Mood: "I'm here so...." Affect: irritable, flat, appropriate, constricted, non-labile, congruent; Thought process: linear and goal-directed; Thought content: denied SI or HI, no paranoid ideation; Perception: denied hallucinations- auditory, visual, does not appear to be responding to internal stimuli; I/J: limited A/P:Pt with MDD, anxiety, PNES with continued anxiety and depression as well as poor sleep. - Continue 1:1 for fall risk given PNES - Start melatonin for sleep - Continue current medication regimen - Encourage integration into the milieu
[2018-01-13 15:40] VITALS: BP 134/74
[2018-01-14 07:41] VITALS: BP 125/74
[2018-01-14 12:01] VITALS: BP 121/65
--- NOTE | 2018-01-14 12:12 | CP SOUTH PROGRESS NOTE PSYCH ---
Psych (Inpt) Progress Note Progress Note Include the following elements, when applicable: Involvement in the active treatment of the patient with behavioral observations of the patient and the patient's response to the treatment. Review of the ongoing treatment process in the context of the treatment plan. Indication of how multi-disciplinary staff members are carrying out the treatment plan. Plans for future interventions and recommendations for revision of the treatment plan. Liaison with other physicians/providers. Progress Note: Pt note that he slept through the night and feels better overall. Notes the BARRERA is resolving and so is nausea. He did not have good PO intake yesterday but much improved today. Spoke about the critical support of his fiance through this difficult time. Denies SI or HI.. Current Medications Sig/Juli Start time Last Medication Dose Route Stop Time Status Admin Acetaminophen 650 MG .STK-MED ONE 01/13 1833 DC PO 01/13 1834 Acetaminophen 650 MG .STK-MED ONE 01/13 1407 DC PO 01/13 1408 Acetaminophen 650 MG Q4P PRN 01/05 1215 AC 01/14 PO 0602 Al Hydroxide/Mg 30 ML Q4-6 PRN PRN 01/05 1215 AC Hydroxide PO Alprazolam 0.5 MG Q6-PRN PRN 01/10 1015 AC 01/13 PO 01/17 1014 1407 Aripiprazole 5 MG AT BEDTIME 01/04 2200 AC 01/13 PO 2141 Cholecalciferol 2,000 IU DAILY 01/05 1000 AC 01/14 PO 0853 Diazepam 15 MG AT BEDTIME 01/04 2200 AC 01/13 PO 2142 Folic Acid 1 MG DAILY 01/05 1000 AC 01/14 PO 0853 Gabapentin 300 MG TID 01/12 1600 AC 01/14 PO 0854 Ibuprofen 800 MG Q8P PRN 01/13 1830 AC 01/14 PO 0853 Ibuprofen 800 MG TID 01/04 1600 DC 01/13 PO 1622 Lamotrigine 150 MG BID 01/11 2200 AC 01/14 PO 0853 Magnesium Hydroxide 30 ML AT BEDTIME PRN 01/05 1215 AC PO Melatonin 5 MG AT BEDTIME 01/13 2200 AC 01/13 PO 2141 Methotrexate 7.5 MG We 01/10 0800 AC 01/10 PO 0835 Methyl Salicylate 1 MARTHA TID PRN 01/13 1830 AC TOP Omeprazole 40 MG DAILY AC 01/05 0700 AC 01/14 PO 0602 Ondansetron HCl 4 MG Q8P PRN 01/13 2045 AC 01/14 PO 09 Sertraline HCl 200 MG DAILY 01/05 1000 AC 01/14 PO 0853 Vital Signs Date Time Temp Pulse Resp B/P B/P Pulse O2 O2 Flow FiO2 Mean Ox Delivery Rate 01/14 1201 77 121/65 01/14 0741 97.4 81 125/74 01/13 1540 74 134/74 MSE General appearance: good hygiene and grooming; Attitude: cooperative; Eye contact: appropriate; Movement: no psychomotor agitation or slowing; Speech: nl fluency, nl rate/rhythm, nl volume, nl prosody; Mood: "better" Affect: less irritable, flat, appropriate, constricted, non-labile, congruent; Thought process: linear and goal-directed; Thought content: denied SI or HI, no paranoid ideation; Perception: denied hallucinations- auditory, visual, does not appear to be responding to internal stimuli; I/J: limited A/P:Pt with MDD, anxiety, PNES with continued anxiety and depression as well as poor sleep. - Continue 1:1 for fall risk given PNES - Started melatonin for sleep, which has been extremely helpful - Continue current medication regimen - Encourage integration into the milieu
[2018-01-14 15:27] VITALS: BP 136/79
[2018-01-14 20:04] VITALS: BP 123/74
[2018-01-15 07:39] VITALS: BP 122/69
--- NOTE | 2018-01-15 07:46 | CP SOUTH PROGRESS NOTE PSYCH ---
Psych (Inpt) Progress Note Progress Note Vital Signs Date Time Temp Pulse B/P 01/15 0739 96.9 88 122/69 01/14 2004 97.7 96 123/74 01/14 1527 81 136/79 Dr. Thomas's notes were reviewed Nursing staff, social work staff, group and activity therapists, and psychiatrist discussed patient's progress and reviewed the treatment and discharge plans. Mental Status Examination: The patient was alert and oriented to time, place, and person. He showed good hygiene and grooming; He was cooperative with good eye contact, normal psychomotor activity (no agitation or slowing); Speech was normal , with normal rate and rhythm,he reported that his mood was depressed but "better than when he came in." He was not irritable, his affect was appropriate, slightly constricted, non- labile, and congruent; Thought process was linear and goal-directed; denied SI , denied HI, no paranoid ideation; there were no delusions. He denied hallucinations, does not appear to be responding to internal stimuli; Partial insight, good memory, average intelligence Assessment: is a 47-year-old engaged White male who was admitted to the inpatient psychiatric unit on 2017 for thoughts of suicide and worsening depression. Since admission, he had several episodes of what we thought were genuine seizures at first but the past few days were definitely not genuine seizures. Patient reported some improvement in mood and denied thinking of suicide Diagnoses: Major Depressive disorder F44.5 Conversion Disorder/ Functional Neurological Symptoms Disorder Seizure Disorder Multiple Concussions/TBI Plan: Discharge home Aftercare plan: [facility]'s intensive outpatient program
[2018-01-15] MEDS ORDERED: LAMICTAL150 M1 PO (09:05)
[2018-01-15] MEDS ORDERED: DIAZEPAM5 M1 PO (09:05)
[2018-01-15] MEDS ORDERED: MELATONIN5 M7 PO (09:05)
[2018-01-15] MEDS ORDERED: ZOLOFT100 M1 PO (09:05)
--- NOTE | 2018-01-15 09:08 | Patient Discharge Instructions ---
Psych Discharge Inst General Discharge Information Reason for Admission: Negative intrusive thoughts including thoughts of suicide. Psy Discharge Primary Diag+ Major Depressive Disorder Psy Discharge Secondary Diag+ General Anxiety Disorder (PTSD) Summary Tests/Major Procedures SERVICE DATE: 01/13/18 EXAM TYPE: CAT - CT HEAD WO IV CONTRAST EXAMINATION: CT HEAD WITHOUT CONTRAST CLINICAL INFORMATION: Fall. Headache. COMPARISON: Head CT from 01/07/2018. TECHNIQUE: Contiguous axial imaging was performed from the skull base to vertex without intravenous administration of contrast. DLP: 630 mGy-cm FINDINGS: There is no evidence of acute intracranial hemorrhage or territorial infarction. No abnormal mass effect or midline shift is seen. Black to white matter differentiation is well preserved. No extra-axial fluid collections are identified. The ventricles are normal in size. There is no abnormal attenuation within the brain parenchyma. The osseous structures and soft tissues are normal. The mastoid air cells and visualized portions of the paranasal sinuses are well aerated. IMPRESSION: No acute intracranial pathology. SERVICE DATE: 01/07/18 EXAM TYPE: CAT - CT CERV SPINE WO IV CONTRAST; CT HEAD WO IV CONTRAST CT HEAD WITHOUT IV CONTRAST CT CERVICAL SPINE WITHOUT IV CONTRAST INDICATION: Unwitnessed fall. COMPARISON: Head and cervical spine CT 07/06/2017. TECHNIQUE: Multidetector CT acquisitions of the head and cervical spine were obtained without IV contrast. Multiplanar reformats were acquired and utilized for image interpretation. FINDINGS: HEAD: Head CT is very limited by motion artifact. No definite intracranial hemorrhage is identified though small volume hemorrhage could be obscured by the degree of artifact on this study. Black to white matter differentiation is diffusely maintained without evidence of an evolved acute territorial infarct. The basilar cisterns are preserved. No significant soft tissue abnormality. No acute osseous abnormality. The paranasal sinuses and the mastoid air cells are well-aerated. CERVICAL SPINE: There is anatomic alignment of the vertebral bodies and posterior elements. There is no acute fracture and there is no acute subluxation. The craniocervical and atlantoaxial articulations are normal. There is no prevertebral soft tissue swelling. Retropharyngeal course of the internal carotid arteries and portions of the common carotid arteries again noted. The visualized lung apices are clear. IMPRESSION: 1. Head CT is very limited by motion artifact. No definite intracranial hemorrhage is identified though small volume hemorrhage could be obscured by the degree of artifact on this study. 2. No acute osseous abnormality within the cervical spine. Studies Pending at DC: None Patient Instructions Contact Information Your Psychiatrist on [facility] was Luis A Riggs MD * If you are experiencing an emergency related to this hospitalization, please call [phone] to contact the treating psychiatrist or the psychiatrist-on- call. * To Request a copy of your medical records, please contact the Medical Records Department at [phone]. * To request results of studies pending at the time of discharge, please call [phone]. * Continue your Medications until directed to stop by your Healthcare provider. General Medication Information Please continue to take your new medications and your continued home medications , unless otherwise indicated on your discharge medication list, or unless directed by your MD or DESIGN/ANIMATION INSTRUCTOR to stop them. Special Instructions Diet Regular Activity As Tolerated - Tobacco Use Treatment Offered Post DC Medications Offered: Not Applicable Post DC Tobacco Treatment Plan: Not Applicable - EtOH/Drug Use D/O Treatment Offered Post DC Medications Offered: NA-No EtOH/Drug Use D/O Post DC EtOH/SubAbuse [place] Plan: NA-No EtOH/Drug Use D/O Metabolic Screening Patient on a neuroleptic(s) . Enter below results for Hemoglobin A1C, and lipid panel if obtained during the last 365 days. BMI: 42.600 Blood Pressure: 122/69 Laboratory Results From [facility] (If applicable): Lab Cholesterol 228 MG/DL H 09/19/17 1037 Cholesterol/HDL Ratio 6 % H 09/19/17 1037 HDL Cholesterol 40 mg/dL 09/19/17 1037 Hemoglobin A1c 5.8 % 09/19/17 1037 LDL Cholesterol, Calc 144 mg/dL H 09/19/17 1037 Triglycerides 223 mg/dL H 09/19/17 1037 Advance Directives Does the Patient have Medical Advance Directives No/Refused further info Does Pt have Psychiatric Advance Directives? No/Refused further info Does Patient have a Designated Surrogate Decision Maker: No Information About Psychiatric Advance Directives Provided? Refused Discharge Plan Post Hospital Treatment Plan: IOP
--- NOTE | 2018-01-15 09:13 | SOCIAL WORKER PROG NOTE PSYCH ---
Social Work Progress Note Progress Note Dr. Jordan and I met with this morning to discuss readiness for discharge. said he had a long weeked and had a few seizure episodes. He denied having any suicidal thoughts. Intrusive images are still present on and off. Denies being able to utilize his coping skills at that time. He is ready to discharge today. Talked about his plan to follow up at [facility]. Asked if he was going to return to work at [employer] anytime soon? He said he was going to return next week. Asked if he has had seizures at work? He said he does occasionally. Asked how those are handled? He said they either call an ambulance or Thu comes and picks him up. Looked calmer today without any noticable anxiety or restlessness. He said he will be contacting Thu to pick him up at 1pm and go with his to [facility].
--- NOTE | 2018-01-15 10:45 | Event Note ---
Event Note Event Note: Rapid response was called on this patient at around 10.30 am. He was sitting in a chair during group therapy and suddenly experienced stuttering speech followed by closing of his eyes and then he suddenly fell backwards hitting the back of his head on the wall. He then slumped forward to the ground. Episode lasted for about 1 minute. Patient's eyes were closed with did not have any seizure activity or jerking of his movements. There was no tongue bite, eye rolling backwards, urinary or fecal incontinence and patient was awake and responding. Of note, patient has a history of pseudoseizures and had a similar episode throughout admission and been evaluated for pseudoseizures with neurology. Current episode appears to be another pseudoseizure. He was transferred back to his room. He was able to follow commands, responded to questions appropriately but kept his eyes closed. Vitals were stable. GCS 15/15. Patient was alert and oriented [address] and person. Neuro exam:Power 5/5 globally, cranial nerves intact. HEENT: Head had slight swelling at the cubital region. Otherwise normal exam with chest clear to auscultations on cardiovascular exam showed a normal S1 and S2. Assessment: Pseudoseizure episode with return to baseline Plan 1. Apply ice packs to back of head 2. Repeat neurochecks after one hour to assess for any interval change
[2018-01-15 10:52] VITALS: BP 140/82
[2018-01-15 12:20] VITALS: BP 113/63
--- NOTE | 2018-01-15 13:27 | SOCIAL WORKER PROG NOTE PSYCH ---
Social Work Progress Note Faxed Referral(s) Referred To: [facility] Transition of Care Documents sent: Health Summary Faxed to: [facility] Fax #: [phone] Faxed by: Leola Silva Date faxed: 01/15/18 Time Faxed: [phone]
--- NOTE | 2018-01-16 12:38 | DISCHARGE SUMMARY REPORT-PSYCH ---
Visit Information Visit Dates/Diagnosis' Admission Date: 01/04/18 Discharge Date: 01/15/18 Reason for Admission: Negative intrusive thoughts including thoughts of suicide. Psy Discharge Primary Diag: Major Depressive Disorder Psy Discharge Secondary Diag: General Anxiety Disorder (PTSD) Hospital Course Significant Lab Findings: Lab Hct 40.2 % L 01/05/181855 Hgb 13.5 G/DL L 01/05/181855 Course Complications: The patient had numerous pseudoseizures when he was on the inpatient psychiatric unit requiring a transfer to the medical floor please see the appropriate sections in the patient's electronic health record, however he stayed only one night on the medical floor and was returned the next day Consultations: The patient had rapid response team involved twice why he was on the inpatient psychiatric unit. The patient had a history and physical examination by the magnesium mill operator the hospitalist and he had a neurology consult while he was in the inpatient psychiatric unit, please refer to the neurology consult in the patient 's electronic health record for details Allergies: Coded Allergies: hydroxychloroquine (From PLAQUENIL) (Intermediate, SWEATS AND CHILLS 12/22/16) venom-honey bee (BEE VENOM (HONEY BEE)) (Intermediate, LOCAL REACTION 12/22/16) atenolol (Mild, RASH 12/22/16) labetalol (Mild, RASH 12/22/16) pimozide (From ORAP) (ELEVATED HR 12/22/16) lorazepam (Severe, HALLUCINATIONS AND AGRESSIVE BEHAVIOR 12/22/16) bupropion (Intermediate, TACHYCARDIA, ANXIETY 12/22/16) divalproex sodium (From DEPAKOTE) (HALLUCINATIONS 10/03/17) haloperidol (MAKES HIM JUMPY 12/22/16) Hospital Course/TX Response: The patient had a complicated hospital course with several pseudoseizures requiring the intervention of the rapid response team twice, neurology consult and to twice having a CAT scan of the head because of suspicion of possible head injury following his pseudoseizure, fortunately the cat scans did not show any acute bleeds or other acute abnormalities Discharge HBIPS - Tobacco Use Treatment Offered Post DC Medications Offered: Not Applicable Post DC Tobacco Treatment Plan: Not Applicable - EtOH/Drug Use D/O Treatment Offered Post DC Medications Offered: NA-No EtOH/Drug Use D/O Post DC EtOH/SubAbuse TX Plan: NA-No EtOH/Drug Use D/O Metabolic Screening - Screen if on a Neuroleptic Medication - Metabolic screening should include: - Blood Pressure, BMI, Glucose or Hgb A1c, & a - Lipid profile from within the past 365 days. Metabolic Screening Patient on a neuroleptic(s) . Enter below results for Hemoglobin A1C, and lipid panel if obtained during the last 365 days. BMI: 42.600 Blood Pressure: 113/63 Laboratory Results From [facility] (If applicable): Lab Cholesterol 228 MG/DL H 09/19/17 1037 Cholesterol/HDL Ratio 6 % H 09/19/17 1037 HDL Cholesterol 40 mg/dL 09/19/17 1037 Hemoglobin A1c 5.8 % 09/19/17 1037 LDL Cholesterol, Calc 144 mg/dL H 09/19/17 1037 Triglycerides 223 mg/dL H 09/19/17 1037 Discharge Instructions General Discharge Information Multiple Neuroleptics: ([X]) Not Applicable Discharge Diet Regular Discharge Activity As Tolerated DC Disposition: Home with IOP follow up Referrals Ordered Referrals Provider Referral 01/15/18 For Groups: [[facility] IOP] [facility] Intensive Outpatient Program Intake 01/15/18 1:15pm [address] [place] [address] Prescriptions Stop taking the following medications: Gabapentin (Gabapentin) 300 MG CAPSULE ORAL AT BEDTIME NEEDED as needed for INSOMNIA Qty = 1 Lamotrigine (Lamictal) 25 MG TABLET ORAL TWICE DAILY Qty = 1 Sertraline HCl (Sertraline HCl) 50 MG TABLET ORAL DAILY Qty = 1 Diazepam (Diazepam) 5 MG TABLET ORAL AT BEDTIME Qty = 1 Diazepam (Diazepam) 5 MG TABLET ORAL Every 12 hours as needed as needed for ANXIETY/INSOMNIA Qty = 1 Continue taking these medications: Methotrexate (Methotrexate) 2.5 MG TABLET 3 Tablet ORAL EVERY MONDAY Comments: Last Taken:01/10/18 Time:8am Cholecalciferol (Vitamin D3) (Vitamin D) 2,000 UNIT TABLET 1 Tablet ORAL DAILY Comments: Last Taken:01/15/18 Time:8am Ibuprofen (Ibuprofen) 800 MG TABLET 800 Milligram ORAL THREE TIMES DAILY Qty = 1 Comments: Last Taken:01/15/18 Time:8am Aripiprazole (Abilify) 5 MG TABLET 5 Milligram ORAL AT BEDTIME Qty = 1 Comments: Last Taken:01/14/18 Time:10pm Aripiprazole (Abilify) 2 MG TABLET 2 Milligram ORAL AT BEDTIME Qty = 1 Comments: Last Taken:01/14/18 Time:10pm Omeprazole (Omeprazole) 20 MG CAPSULE.DR 40 Milligram ORAL DAILY BEFORE BREAKFAST Qty = 1 Comments: Last Taken:01/15/18 Time:8am Folic Acid (Folic Acid) 1 MG TABLET 1 Milligram ORAL DAILY Qty = 1 Comments: Last Taken:01/15/18 Time:8am Start taking the following new medications: Lamotrigine (Lamictal) 150 MG TABLET 1 Tablet ORAL TWICE DAILY Qty = 30 No Refills Comments: Last Taken:01/15/18 Time:8am Sertraline HCl (Zoloft) 100 MG TABLET 200 Milligram ORAL DAILY Qty = 30 No Refills Comments: Last Taken:01/15/18 Time:8am Diazepam (Diazepam) 5 MG TABLET 3 Tablet ORAL AT BEDTIME Qty = 45 No Refills Comments: Last Taken:01/14/18 Time:10pm Melatonin (Melatonin) 5 MG TABLET 5 Milligram ORAL AT BEDTIME Qty = 30 No Refills Comments: Last Taken:01/14/18 Time:10pm Studies Pending at Discharge None Copies To: Amanda
== END 2018-01-15 13:07 | DRG 881 ==
LOC: CP SOUTH 10:01
PROVIDERS: Student in an Organized Health Care Education/Training Program
DX: F32.9 Major depressive disorder, single episode, unspecified (principal)
CPT/HCPCS: 6020; 6031; 36415; 80307; 81003; 82436; 92610-GN; 93005; 93010; 94799; 96372; 96374; 99233; G0378; G0379; G8996-GN; G8997-GN; G8998-GN; J0131; J1650; J2060; J3101; J3490; J8610

== ENCOUNTER 2018-03-23 09:30 | Emergency (ER) | payer OTHER, MEDICARE ==
[~2018-03-23] VITALS: Ht 190.5 cm; Wt 154.2 kg
[~2018-03-23 09:30] MED LIST changes: +LAMICTAL150 M1 PO; +MELATONIN5 M7 PO; +ZOLOFT100 M1 PO
--- NOTE | 2018-03-23 09:46 | ED AMS/SEIZURE/WEAK/DIZZY ---
History of Present Illness General Chief Complaint: Seizure Stated Complaint: BIBA ?SEIZURE LIKE ACTIVITY Source: patient Exam Limitations: no limitations Vital Signs & Intake/Output Vital Signs & Intake/Output Vital Signs Date Time Temp Pulse Resp B/P B/P Pulse O2 O2 Flow FiO2 Mean Ox Delivery Rate 03/23 1147 98.6 72 16 142/85 99 Room Air 03/23 0933 97.2 95 18 166/97 95 Room Air Allergies Coded Allergies: hydroxychloroquine (From PLAQUENIL) (Intermediate, SWEATS AND CHILLS 12/22/16) venom-honey bee (BEE VENOM (HONEY BEE)) (Intermediate, LOCAL REACTION 12/22/16) atenolol (Mild, RASH 12/22/16) labetalol (Mild, RASH 12/22/16) pimozide (From ORAP) (ELEVATED HR 12/22/16) lorazepam (Severe, HALLUCINATIONS AND AGRESSIVE BEHAVIOR 12/22/16) bupropion (Intermediate, TACHYCARDIA, ANXIETY 12/22/16) divalproex sodium (From DEPAKOTE) (HALLUCINATIONS 10/03/17) haloperidol (MAKES HIM JUMPY 12/22/16) Triage Note: 47 Y/O MALE MARYJO FROM OUTPATIENT APPOINTMENT FOR EVAL OF "SEIZURE LIKE ACTIVITY". PER EMS, PT WAS IN APPOINTMENT WHEN HE "THREW HIS HEAD BACK AND WAS SHAKING". PT ARRIVES TO ED ALERT AND ORIENTED, SPEAKING QUIETLY. HX "PSEUDOSEIZURES" PER EMS. PT ONLY C/O AT PRESENT IS FEELING "TIRED". PER HOSPITAL IV IN PLACE Triage Nurses Notes Reviewed? yes Onset: Abrupt Duration: hour(s): Timing: recent history HPI: 47-year-old male comes in with complaints of having a pseudoseizure. Patient reports that he has a history of pseudoseizures. He was over at his doctor's office. EMS reports that he had himself back is having seizure-like activity. He is alert and oriented upon arrival here. He reports he feels a little bit weak and fatigued. Denies any pain currently. Denies any headache. Denies any other associated symptoms. (Dean TENORIO,Wilner) Reconcile Medications Aripiprazole (Abilify) 5 MG TABLET 5 MG PO AT BEDTIME moods Dexlansoprazole (Dexilant) 60 MG CAP.BP 1 CAP PO DAILY GI (Reported) Diazepam 5 MG TABLET 1 TAB PO BIDP PRN ANXIETY (Reported) Meloxicam 15 MG TABLET 1 TAB PO DAILY PAIN (Reported) Methotrexate 2.5 MG TABLET 3 TAB PO QWED PSORIATIC ARTHRITIS (Reported) Sertraline HCl (Zoloft) 100 MG TABLET 200 MG PO DAILY@0800 Depression (Colton HERNANDEZ,Ernie) Past History Travel History Traveled to [place] past 21 day No Medical History Any Pertinent Medical History? see below for history Neurological: PSEUDO SEIZURES SINCE 20YO EENT: NONE Cardiovascular: hypertension Respiratory: NONE Gastrointestinal: GERD Hepatic: NONE Renal: ENLARGED PROSTATE Musculoskeletal: degen joint disease, psoariatic arthritis, CARPAL TUNNEL Psychiatric: anxiety, depression, CONVERSION DISORDER PTSD OCD Endocrine: NONE Blood Disorders: NONE Cancer(s): NONE SUPERINTENDENT COMMUNICATIONS/Reproductive: NONE History of MRSA: No History of VRE: No History of CDIFF: No Surgical History Surgical History: cholecystectomy Psychosocial History Who do you live with Family What is your primary language Rwandan Tobacco Use: Quit >30 days ago Family History Family History, If Any: Relation not specified for: *No pertinent family history Hx Contributory? No (Wilner Beltre) Review of Systems Review of Systems Constitutional: Reports: no symptoms. EENTM: Reports: no symptoms. Respiratory: Reports: no symptoms. Cardiovascular: Reports: no symptoms. GI: Reports: no symptoms. Genitourinary: Reports: no symptoms. Musculoskeletal: Reports: no symptoms. Skin: Reports: no symptoms. Neurological/Psychological: Reports: see HPI. Hematologic/Endocrine: Reports: no symptoms. Immunologic/Allergic: Reports: no symptoms. All Other Systems: Reviewed and Negative (Wilner Beltre) Physical Exam Physical Exam General Appearance: well developed/nourished, no apparent distress, alert Head: atraumatic, normal appearance Eyes: Bilateral: normal appearance. Ears, Nose, Throat: normal ENT inspection, hearing grossly normal Neck: normal inspection Respiratory: normal breath sounds, no respiratory distress Cardiovascular: regular rate/rhythm Gastrointestinal: soft Back: normal inspection Extremities: normal range of motion Neurologic/Psych: awake, alert, oriented x 3 Skin: intact, normal color Core Measures ACS in differential dx? No CVA/TIA Diagnosis No Sepsis Present: No Sepsis Focused Exam Completed? No (Wilner Beltre) Progress Differential Diagnosis: alcohol intoxication, dehydration, drug intoxication, presyncope, seizure disorder, pseudoseizures Plan of Care: Orders Procedure Date/time Status URINE DRUGS OF ABUSE 03/23 946 Complete URINALYSIS 03/23 946 Complete ETHANOL 03/23 946 Complete COMPREHENSIVE METABOLIC PANEL 03/23 946 Complete CBC WITHOUT DIFFERENTIAL 03/23 946 Complete Laboratory Tests 03/23/18 1255: Urine Opiates Screen < 100, Methadone Screen < 40, Barbiturate Screen < 60, Ur Phencyclidine Scrn < 6.00, Amphetamines Screen < 100, U Benzodiazepines Scrn > 800 H, Urine Cocaine Screen < 50, Urine Cannabis Screen > 80.00 H, Urine Color YEL, Urine Clarity HAZY H, Urine pH 6.0, Ur Specific [place] >= 1.030, Urine Protein TRACE H, Urine Ketones NEG, Urine Nitrite NEG, Urine Bilirubin NEG, Urine Urobilinogen 0.2, Ur Leukocyte Esterase NEG, Ur Microscopic SEDIMENT EXAMINED, Urine WBC RARE, Ur Epithelial Cells RARE, Urine Mucus FEW, Urine Hemoglobin NEG, Urine Glucose NEG 03/23/18 1002: Anion Gap 14, Estimated GFR > 60, BUN/Creatinine Ratio 22.9, Glucose 107 H, Calcium 9.0, Total Bilirubin 0.4, AST 25, ALT 58, Alkaline Phosphatase 106, Total Protein 7.6, Albumin 4.2, Globulin 3.4, Albumin/Globulin Ratio 1.2, CBC w Diff NO MAN DIFF REQ, RBC 4.90, MCV 88.1, MCH 30.5, MCHC 34.6, RDW 13.5, MPV 8.1 , Gran % 67.0, Lymphocytes % 25.6, Monocytes % 6.3, Eosinophils % 0.7, Basophils % 0.4, Absolute Granulocytes 5.5, Absolute Lymphocytes 2.1, Absolute Monocytes 0.5, Absolute Eosinophils 0.1, Absolute Basophils 0, Serum Alcohol < 10.0 Initial ED EKG: none Comments: 03/23/2018 1:53:21 PM Patient is alert and oriented and clinically sober. No acute findings. Follow- up with PCP. Return if any other concerns worsening symptoms. Patient understands and agrees with plan of care. (Wilner Beltre) Departure Departure Disposition: HOME OR SELF CARE Condition: Stable Clinical Impression Primary Impression: Pseudoseizures Referrals: Mercedes Woods (PCP/Family) Additional Instructions: Follow-up with your primary care doctor. Return if any other concerns worsening symptoms. Please go over all results of today's visit with your primary care doctor. Contact your primary care doctor to let them know you were here in the emergency room. There may be nonspecific findings which may not be related to your visit today here in the emergency room but may require further evaluation and chronic monitoring by your primary care doctor. If you had a laceration today the chance of foreign body always remains. You should follow-up with your primary care doctor for recheck in 3-5 days for a wound check. If you had an x-ray done there is a chance that a fracture could have been missed on initial read and you should follow-up with your primary care doctor for repeat x-rays if symptoms persist. If your blood pressure was elevated here in the emergency room please have rechecked by [facility] primary care doctor within the next 48. If you were prescribed a narcotic here in the emergency room or any type of controlled substances you're not allowed to drive while taking this medication or operate any type of heavy machinery. Narcotics can make you feel lightheaded dizziness nausea and can cause constipation. You may need to shredder picker a stool softener. Thank you for choosing [facility] emergency room. Please return to the emergency room immediately if you have any other concerns worsening of symptoms. Departure Forms: Customer Survey General Discharge Information (Wilner Beltre) PA/IMAGING ENGINEER Co-Sign Statement Statement: ED Attending supervision documentation- x I saw and evaluated the patient. I have also reviewed all the pertinent lab results and diagnostic results. I agree with the findings and the plan of care as documented in the PA's/IMAGING ENGINEER's documentation. [] I have reviewed the ED Record and agree with the PA's/IMAGING ENGINEER's documentation. [] Additions or exceptions (if any) to the PAs/IMAGING ENGINEER's note and plan are summarized below: [] (Colton HERNANDEZ,Ernie)
[2018-03-23 10:11] LABS: ABSOLUTE BASOPHIL COUNT 0 /CUMM (0.0-0.2); ABSOLUTE EOSINOPHIL COUNT 0.1 /CUMM (0.0-0.7); ABSOLUTE GRANULOCYTE CT 5.5 /CUMM (1.4-6.5); ABSOLUTE LYMPH COUNT 2.1 /CUMM (1.2-3.4); ABSOLUTE MONOCYTE COUNT 0.5 /CUMM (0.10-0.60); BASOPHIL % 0.4 % (0.0-2.0); EOSINOPHIL % 0.7 % (0-5); HEMATOCRIT 43.1 % (42-52); MEAN CORPUSCULAR HGB 30.5 PG (27.0-31.0); MEAN CORPUSCULAR HGB CONC 34.6 G/DL (33.0-37.0); MEAN CORPUSCULAR VOLUME 88.1 FL (80.0-94.0); MEAN PLATELET VOLUME 8.1 FL (7.4-10.4); PLATELET COUNT 361 /CUMM (130-400); RBC DISTRIBUTION WIDTH 13.5 % (11.5-14.5); WHITE BLOOD CELL COUNT 8.2 /CUMM (4.8-10.8)
[2018-03-23 11:47] VITALS: BP 142/85
== END 2018-03-23 14:47 ==
LOC: ERH 09:30
PROVIDERS: Physician Assistant Medical
DX: R56.9 Unspecified convulsions (principal)
CPT/HCPCS: 80307; 81001; G0480

== ENCOUNTER 2018-03-27 16:40 | Emergency (ER) | payer OTHER, MEDICARE ==
--- NOTE | 2018-03-27 17:42 | ED PSYCHIATRIC COMPLAINT ---
History of Present Illness General Chief Complaint: General Adult Stated Complaint: BIBA SHAKING, HX PSEUDOSEIZURES Source: patient, family, old records, EMS Exam Limitations: no limitations Vital Signs & Intake/Output Vital Signs & Intake/Output Vital Signs Date Time Temp Pulse Resp B/P B/P Pulse O2 O2 Flow FiO2 Mean Ox Delivery Rate 03/27 2011 98.4 89 18 133/79 99 Room Air 03/27 1825 88 18 99 Room Air 03/27 1657 98.2 101 20 135/85 96 Room Air Allergies Coded Allergies: hydroxychloroquine (From PLAQUENIL) (Intermediate, SWEATS AND CHILLS 12/22/16) venom-honey bee (BEE VENOM (HONEY BEE)) (Intermediate, LOCAL REACTION 12/22/16) atenolol (Mild, RASH 12/22/16) labetalol (Mild, RASH 12/22/16) pimozide (From ORAP) (ELEVATED HR 12/22/16) lorazepam (Severe, HALLUCINATIONS AND AGRESSIVE BEHAVIOR 12/22/16) bupropion (Intermediate, TACHYCARDIA, ANXIETY 12/22/16) divalproex sodium (From DEPAKOTE) (HALLUCINATIONS 10/03/17) haloperidol (MAKES HIM JUMPY 12/22/16) Reconcile Medications Aripiprazole (Abilify) 5 MG TABLET 5 MG PO AT BEDTIME moods Dexlansoprazole (Dexilant) 60 MG CAP.DRBrianBP 1 CAP PO DAILY GI (Reported) Diazepam 5 MG TABLET 1 TAB PO BIDP PRN ANXIETY (Reported) Meloxicam 15 MG TABLET 1 TAB PO DAILY PAIN (Reported) Methotrexate 2.5 MG TABLET 3 TAB PO QWED PSORIATIC ARTHRITIS (Reported) Sertraline HCl (Zoloft) 100 MG TABLET 200 MG PO DAILY@0800 Depression Triage Note: 47M WITH HX PSEUDOSEIZURES BIBA FOR SHAKING ACTIVITY X45 MINUTES. NO INCONTINENCE NOTED, DOES NOT PRESENT POST ICTAL ON ARRIVAL. ABLE TO FOLLOW COMMANDS. NO ACUTE DISTRESS OBSERVED ON ARRIVAL ASSIDE FROM SHAKING. AIRWAY PATENT, NO RESPIRATORY DISTRESS Triage Nurses Notes Reviewed? yes Onset: Just prior to arrival Duration: minute(s):, constant, continues in ED Timing: recent history Severity: moderate, severe Associated Symptoms: anxiety, impaired concentration HPI: Prior to admission while driving patient had uncontrollable shaking. He also complains of anxiety and seeing objects when closing his eyes. He denies fever chills nausea vomiting diarrhea abdominal pain chest pain shortness breath headache dysuria rash bleeding suicidal ideation homicidal ideation. Past History Travel History Traveled to [place] past 21 day No Medical History Any Pertinent Medical History? 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 No Review of Systems Review of Systems Constitutional: Reports: no symptoms. EENTM: Reports: no symptoms. Respiratory: Reports: no symptoms. Cardiovascular: Reports: no symptoms. GI: Reports: no symptoms. Genitourinary: Reports: no symptoms. Musculoskeletal: Reports: no symptoms. Skin: Reports: no symptoms. Neurological/Psychological: Reports: see HPI, anxiety, tremors. Hematologic/Endocrine: Reports: no symptoms. Immunologic/Allergic: Reports: no symptoms. All Other Systems: Reviewed and Negative Physical Exam Physical Exam General Appearance: well developed/nourished, alert, awake, anxious, moderate distress, obese Head: atraumatic, normal appearance Eyes: Bilateral: PERRL, EOMI. 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 patient not suicidal Progress Differential Diagnosis: drug intoxication, drug overdose, drug withdrawal, electrolyte abnormality, hypoglycemia Plan of Care: Orders Procedure Date/time Status ETHANOL 05/01 1656 Complete COMPREHENSIVE METABOLIC PANEL 03/27 1656 Complete CBC WITHOUT DIFFERENTIAL 03/27 1656 Complete Current Medications Sig/Juli Start time Last Medication Dose Stop Time Status Admin Lorazepam 1 MG ONCE ONE 03/27 1700 CAN (Ativan) 03/27 170 Laboratory Tests 03/27/18 1805: Anion Gap 12, Estimated GFR > 60, BUN/Creatinine Ratio 21.4, Glucose 88, Calcium 9.8, Total Bilirubin 0.6, AST 24, ALT 48, Alkaline Phosphatase 115, Total Protein 8.1, Albumin 4.7, Globulin 3.4, Albumin/Globulin Ratio 1.4, CBC w Diff NO MAN DIFF REQ, RBC 5.18, MCV 88.6, MCH 29.1, MCHC 32.8 L, RDW 13.5, MPV 8.4, Gran % 60.7, Lymphocytes % 30.9, Monocytes % 7.2, Eosinophils % 0.6, Basophils % 0.6, Absolute Granulocytes 5.3, Absolute Lymphocytes 2.7, Absolute Monocytes 0.6 , Absolute Eosinophils 0.1, Absolute Basophils 0, Serum Alcohol < 10.0 03/27/181655: Methadone Screen Cancelled, Barbiturate Screen Cancelled, Ur Phencyclidine Scrn Cancelled, Amphetamines Screen Cancelled, U Benzodiazepines Scrn Cancelled, Urine Cocaine Screen Cancelled, Urine Cannabis Screen Cancelled Departure Departure Time of Disposition: 2004 Disposition: HOME OR SELF CARE Condition: Stable Clinical Impression Primary Impression: Anxiety related tremor Referrals: Mercedes Woods (PCP/Family) Departure Forms: General Discharge Information
[2018-03-27 18:16] LABS: ABSOLUTE BASOPHIL COUNT 0 /CUMM (0.0-0.2); ABSOLUTE EOSINOPHIL COUNT 0.1 /CUMM (0.0-0.7); ABSOLUTE GRANULOCYTE CT 5.3 /CUMM (1.4-6.5); ABSOLUTE LYMPH COUNT 2.7 /CUMM (1.2-3.4); ABSOLUTE MONOCYTE COUNT 0.6 /CUMM (0.10-0.60); BASOPHIL % 0.6 % (0.0-2.0); EOSINOPHIL % 0.6 % (0-5); GRANULOCYTE % 60.7 % (42.2-75.2); HEMATOCRIT 45.9 % (42-52); MEAN CORPUSCULAR HGB 29.1 PG (27.0-31.0); MEAN CORPUSCULAR HGB CONC 32.8 G/DL (33.0-37.0); MEAN CORPUSCULAR VOLUME 88.6 FL (80.0-94.0); MEAN PLATELET VOLUME 8.4 FL (7.4-10.4); PLATELET COUNT 364 /CUMM (130-400); RBC DISTRIBUTION WIDTH 13.5 % (11.5-14.5); RED BLOOD CELL CT 5.18 /CUMM (4.70-6.10); WHITE BLOOD CELL COUNT 8.7 /CUMM (4.8-10.8)
[2018-03-27 20:11] VITALS: BP 133/79
== END 2018-03-27 20:12 ==
LOC: ERH 16:40
PROVIDERS: Emergency Medicine
DX: F44.4 Conversion disorder with motor symptom or deficit (principal); F41.9 Anxiety disorder, unspecified
CPT/HCPCS: 80307; 96372; G0480

== ENCOUNTER 2018-04-25 10:59 | Emergency (ER) | payer OTHER, MEDICARE ==
[~2018-04-25] VITALS: Ht 190.5 cm; Wt 154.2 kg
--- NOTE | 2018-04-25 11:45 | ED GENERAL ADULT ---
History of Present Illness General Chief Complaint: General Adult Stated Complaint: "SEIZURE LIKE ACTIVITY" Source: patient Exam Limitations: not alert/orientated Vital Signs & Intake/Output Vital Signs & Intake/Output Vital Signs Date Time Temp Pulse Resp B/P B/P Pulse O2 O2 Flow FiO2 Mean Ox Delivery Rate 04/25 1339 98.6 96 16 146/88 95 Room Air 04/25 1100 98.4 101 18 141/80 99 Room Air Allergies Coded Allergies: hydroxychloroquine (From PLAQUENIL) (Intermediate, SWEATS AND CHILLS 12/22/16) venom-honey bee (BEE VENOM (HONEY BEE)) (Intermediate, LOCAL REACTION 12/22/16) atenolol (Mild, RASH 12/22/16) labetalol (Mild, RASH 12/22/16) pimozide (From ORAP) (ELEVATED HR 12/22/16) lorazepam (Severe, HALLUCINATIONS AND AGRESSIVE BEHAVIOR 12/22/16) bupropion (Intermediate, TACHYCARDIA, ANXIETY 12/22/16) divalproex sodium (From DEPAKOTE) (HALLUCINATIONS 10/03/17) haloperidol (MAKES HIM JUMPY 12/22/16) Reconcile Medications Aripiprazole (Abilify) 5 MG TABLET 5 MG PO AT BEDTIME moods Dexlansoprazole (Dexilant) 60 MG CAP.BP 1 CAP PO DAILY GI (Reported) Diazepam 5 MG TABLET 1 TAB PO BIDP PRN ANXIETY (Reported) Meloxicam 15 MG TABLET 1 TAB PO DAILY PAIN (Reported) Methotrexate 2.5 MG TABLET 3 TAB PO QWED PSORIATIC ARTHRITIS (Reported) Sertraline HCl (Zoloft) 100 MG TABLET 200 MG PO DAILY@0800 Depression Triage Note: 47 Y/O MALE [place] FROM [employer] [facility] IN [place]. PER EMS, PT HAD WITNESSED "SEIZURE LIKE ACTIVITY" WHILE WAITING IN LINE. 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 PT ARRIVES TO ED A/0 X 4 STATING "I NEED TO GO HOME". NO SIGNS INCONTINENCE NOTED. AWAITING EVAL. Triage Nurses Notes Reviewed? yes HPI: Patient is a 47-year-old male who is well-known to providers in this emergency department for his recidivism and multiple previous ED visits for seizure activity. He is brought in by EMS today for repeat episode of seizure, and prior to arrival was given a bolus of Versed for his ongoing seizure activity. At arrival, there was no further seizure activity, and a review of his chart reveals a long past medical history of suspected paroxysmal nonepileptic seizure disorder, and no true epileptic or other diagnosed seizure disorder. Upon my initial encounter the patient was still somewhat altered with depressed mentation from the benzodiazepine bolus. He attempted to stand up and in so doing fell to the floor. I was able to guide him down to avoid trauma, and because of this he did not strike his head. I summoned help from other ED staff and the patient was guided back into his gurney. He has no further seizure activity and no further complaints at present. Past History Travel History Traveled to [place] past 21 day No Medical History Any Pertinent Medical History? 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 No Review of Systems Review of Systems Constitutional: Reports: see HPI. Comments Other than the features mentioned in history of present illness above, a detailed review of systems was not possible secondary to the patient's depressed mentation and unwillingness to participate in my interview Physical Exam Physical Exam General Appearance: sedated Comments: HEENT: Inspection of the head reveals a normocephalic cranium with no signs of trauma. Ophtho: Extraocular muscles are intact and pupils are equal and reactive to light bilaterally with no afferent pupillary defect. The sclera are noninjected , and there is no obvious discharge. Neck: The trachea is midline, there is no obvious asymmetry or mass over the thyroid, and there is no wincing on palpation of the midline cervical spine. Respiratory: The lungs are clear and equal to auscultation bilaterally without wheezes, rales, or rhonchi. The patient exhibits no signs of labored breathing. Cardiac: Regular rhythm and non-tachycardic without appreciable murmurs on auscultation. No obvious JVD. GI: Examination of the abdomen reveals no significant wincing on deep palpation. : Deferred Neuro: No active seizure activity at the time of my initial encounter. Focused neurologic examination was attempted, but secondary to the patient's depressed mentation, it was extremely limited. Features that were obtainable included equal pupils and a lack of gross focal motor abnormality on patient's limited passive motion. Behavioral: Calm. Dermatologic: Dermatologic examination reveals no diffuse rashes or exanthems, no petechiae, no ecchymoses, and no other signs of erythema or infection. Core Measures ACS in differential dx? No CVA/TIA Diagnosis: No Sepsis Present: No Sepsis Focused Exam Completed? No Progress Differential Diagnoses I considered the following diagnoses in my evaluation of the patient: Epilepsy, tonic/clonic seizure, focal seizure, partial seizure, pseudoseizure, versus normal nonepileptic seizure disorder, intracranial mass, electrolyte abnormality , other metabolic disturbance causing seizure Plan of Care: Given the patient's long history of paroxysmal nonepileptic seizure disorder, and given that his symptoms have resolved today, I do not feel that advanced imaging or laboratory analysis are mandatory at present. The patient is currently not using any convulsions, either true or psychogenic. We will observe him until he emerges from his benzodiazepine sedation, and attempt to ambulate him in the hopes that he can be discharged home in stable condition. Initial ED EKG: none Comments: Patient with history of paroxysmal nonepileptic seizure disorder and no formally diagnosed seizure disorder, with other psychiatric comorbidities, presented today having seemingly focal seizure episodes during which he was able to communicate with providers. They did not fit the pattern of a true tonic/clonic seizure disorder. I reviewed his prior notes and we were able to avoid repeating unnecessary advanced imaging today. Patient returned to baseline, and his significant other arrived. I reassessed him and found him to be alert, oriented, without any neurologic abnormality and requesting discharge home. I felt this was reasonable, and the patient was discharged home in stable condition. He will follow-up with his primary provider this week for reassessment. Departure Departure Time of Disposition: 1526 Disposition: HOME OR SELF CARE Condition: Stable Clinical Impression Primary Impression: Seizure Referrals: Mercedes Woods (PCP/Family) Additional Instructions: Please follow-up with your primary provider as recommended. Departure Forms: Customer Survey General Discharge Information Critical Care Note Critical Care Note Critical Care Time: non-applicable
[2018-04-25 15:35] VITALS: BP 144/80
== END 2018-04-25 15:41 ==
LOC: ERH 10:59
DX: R56.9 Unspecified convulsions (principal)

== ENCOUNTER 2018-05-08 12:30 | Emergency (ER) | payer OTHER, MEDICARE ==
[~2018-05-08] VITALS: Ht 190.5 cm; Wt 149.7 kg
--- NOTE | 2018-05-08 12:58 | ED PSYCHIATRIC COMPLAINT ---
History of Present Illness General Chief Complaint: Seizure Stated Complaint: BIBA, SEIZURE LIKE ACTIVITY Source: patient, old records, EMS Exam Limitations: no limitations Vital Signs & Intake/Output Vital Signs & Intake/Output Vital Signs Date Time Temp Pulse Resp B/P B/P Pulse O2 O2 Flow FiO2 Mean Ox Delivery Rate 05/08 1241 97 Room Air Room Air 05/08 1237 98.7 78 18 134/86 95 Room Air Room Air Allergies Coded Allergies: hydroxychloroquine (From PLAQUENIL) (Intermediate, SWEATS AND CHILLS 12/22/16) venom-honey bee (BEE VENOM (HONEY BEE)) (Intermediate, LOCAL REACTION 12/22/16) atenolol (Mild, RASH 12/22/16) labetalol (Mild, RASH 12/22/16) pimozide (From ORAP) (ELEVATED HR 12/22/16) lorazepam (Severe, HALLUCINATIONS AND AGRESSIVE BEHAVIOR 12/22/16) bupropion (Intermediate, TACHYCARDIA, ANXIETY 12/22/16) divalproex sodium (From DEPAKOTE) (HALLUCINATIONS 10/03/17) haloperidol (MAKES HIM JUMPY 12/22/16) Reconcile Medications Aripiprazole (Abilify) 5 MG TABLET 5 MG PO AT BEDTIME moods Dexlansoprazole (Dexilant) 60 MG CAP.BP 1 CAP PO DAILY GI (Reported) Diazepam 5 MG TABLET 1 TAB PO BIDP PRN ANXIETY (Reported) Meloxicam 15 MG TABLET 1 TAB PO DAILY PAIN (Reported) Methotrexate 2.5 MG TABLET 3 TAB PO QWED PSORIATIC ARTHRITIS (Reported) Sertraline HCl (Zoloft) 100 MG TABLET 200 MG PO DAILY@0800 Depression Triage Note: BIBA FROM WORK AT [employer] WITH C/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 IV PLACED, IV ATIVAN GIVEN ENROUTE. PT ARRIVES AWAKE, ALERT, ORIENTED, ABLE TO ANSWER QUESTIONS APPROPRIATELY. Triage Nurses Notes Reviewed? yes Onset: Just prior to arrival Duration: minute(s):, constant, continues in ED Timing: recent history Severity: moderate Associated Symptoms: anxiety, impaired concentration HPI: Prior to admission while at work patient had seizure-like activity. EMS was called Ativan was administered. Emergency department he complains of seeing creatures and animals that are out to get him afraid to close his eyes. He denies fever chills nausea vomiting diarrhea abdominal pain chest pain shortness breath headache dysuria rash bleeding suicidal ideation homicidal ideation. (Ernie Segura MD) Past History Travel History Traveled to [place] past 21 day No Medical History Any Pertinent Medical History? 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 No (rEnie Segura MD) Review of Systems Review of Systems Constitutional: Reports: no symptoms. EENTM: Reports: no symptoms. Respiratory: Reports: no symptoms. Cardiovascular: Reports: no symptoms. GI: Reports: no symptoms. Genitourinary: Reports: no symptoms. Musculoskeletal: Reports: no symptoms. Skin: Reports: no symptoms. Neurological/Psychological: Reports: see HPI, anxiety, confusion. Hematologic/Endocrine: Reports: no symptoms. Immunologic/Allergic: Reports: no symptoms. All Other Systems: Reviewed and Negative (Ernie Segura MD) Physical Exam Physical Exam General Appearance: well developed/nourished, alert, awake, anxious, mild distress, obese Head: atraumatic Eyes: Bilateral: normal appearance, PERRL, EOMI. 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 patient not suicidal (Ernie Segura MD) Progress Differential Diagnosis: drug intoxication, drug overdose, drug withdrawal, electrolyte abnormality, hypoglycemia Plan of Care: Orders Procedure Date/time Status Regular Diet 05/08 D Active Patient Safety Monitor 05/08 1256 Active URINE DRUG SCREEN FOR ER ONLY 05/08 1256 Complete MAGNESIUM 05/08 1256 Complete ETHANOL 05/08 1256 Complete COMPREHENSIVE METABOLIC PANEL 05/08 1256 Complete CBC WITHOUT DIFFERENTIAL 05/08 1256 Complete ED CRISIS PSYCH CONSULT 05/08 1256 Active EKG 05/08 1234 Active Laboratory Tests 05/08/18 1755: Urine Opiates Screen < 100, Methadone Screen < 40, Barbiturate Screen < 60, Ur Phencyclidine Scrn < 6.00, Amphetamines Screen < 100, U Benzodiazepines Scrn 395 H, Urine Cocaine Screen < 50, Urine Cannabis Screen 77.60 H 05/08/18 1300: Anion Gap 12, Estimated GFR > 60, BUN/Creatinine Ratio 18.0, Glucose 94, Calcium 9.2, Magnesium 1.9, Total Bilirubin 0.4, AST 31, ALT 49, Alkaline Phosphatase 104, Total Protein 7.2, Albumin 4.0, Globulin 3.2, Albumin/Globulin Ratio 1.3, CBC w Diff NO MAN DIFF REQ, RBC 4.84, MCV 88.1, MCH 29.5, MCHC 33.4, RDW 13.9, MPV 8.3, Gran % 64.3, Lymphocytes % 29.3, Monocytes % 5.6, Eosinophils % 0.4, Basophils % 0.4, Absolute Granulocytes 5.4, Absolute Lymphocytes 2.4, Absolute Monocytes 0.5, Absolute Eosinophils 0, Absolute Basophils 0, Serum Alcohol < 10.0 Hand-Off Endorsed To: Alexandra HERNANDEZ,Shamar Robin Endorsed Time: 1521 Pending: consult, labs (Ernie Segura MD) Comments: 05/08/2018 3:10:19 PM patient signed out to me by 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 05/08/2018 6:47:27 PM patient refused evaluation by the reinforcing bar setter who approached me with the matter. I have reevaluated myself. He states that the hallucinations are likely due to the Ativan he was given (he has had a similar reaction in the past). He states he does get hallucinations secondary to PTSD as well. He states overall the hallucinations seem real he understands that they are not. He simply wishes to return home. He states that his fiance will pick him up from the emergency department. (Alexandra HERNANDEZ,Shamar Robin) Departure Departure Condition: Stable Clinical Impression Primary Impression: Conversion disorder Secondary Impressions: Visual hallucinations Referrals: Mercedes Woods (PCP/Family) Departure Forms: Customer Survey General Discharge Information (Colton HERNANDEZ,Ernie) Departure Disposition: HOME OR SELF CARE Additional Instructions: Follow-up with your primary care physician and psychiatrist as soon as possible. Return if any concerns or sudden worsening. Please note that there might be incidental findings in your evaluation that are unrelated to the current emergency department visit. Please notify your primary care doctor about this emergency department visit in order to obtain and review all of the testing performed so that these incidental findings can be monitored as needed. If you had an x-ray performed, please understand that some fractures or other findings may not be seen on the initial set of x-rays. If your symptoms persist you might need a repeat set of x-rays to check for such a fracture. If you had a laceration evaluated, please understand that foreign bodies such as glass or wood may not be visible to the naked eye or on plain x-rays. If the wound becomes red, swollen, increasingly more painful or if there is any drainage from the wound, please have it reevaluated by a physician for the possibility of a retained foreign body. If you're unable to follow up as outlined in the discharge instructions please return to the emergency department. Thank you for choosing the [facility] Emergency Department for your care. It was a pleasure to serve you today. Shamar Morris M.D. [facility] (Alexandra HERNANDEZ,Shamar Robin)
[2018-05-08 13:14] LABS: ABSOLUTE BASOPHIL COUNT 0 /CUMM (0.0-0.2); ABSOLUTE EOSINOPHIL COUNT 0 /CUMM (0.0-0.7); ABSOLUTE GRANULOCYTE CT 5.4 /CUMM (1.4-6.5); ABSOLUTE LYMPH COUNT 2.4 /CUMM (1.2-3.4); ABSOLUTE MONOCYTE COUNT 0.5 /CUMM (0.10-0.60); BASOPHIL % 0.4 % (0.0-2.0); EOSINOPHIL % 0.4 % (0-5); GRANULOCYTE % 64.3 % (42.2-75.2); HEMATOCRIT 42.6 % (42-52); MEAN CORPUSCULAR HGB 29.5 PG (27.0-31.0); MEAN CORPUSCULAR HGB CONC 33.4 G/DL (33.0-37.0); MEAN CORPUSCULAR VOLUME 88.1 FL (80.0-94.0); MEAN PLATELET VOLUME 8.3 FL (7.4-10.4); PLATELET COUNT 329 /CUMM (130-400); RBC DISTRIBUTION WIDTH 13.9 % (11.5-14.5); RED BLOOD CELL CT 4.84 /CUMM (4.70-6.10); WHITE BLOOD CELL COUNT 8.4 /CUMM (4.8-10.8)
[2018-05-08 19:37] VITALS: BP 136/68
== END 2018-05-08 19:43 ==
LOC: ERH 12:30
PROVIDERS: Emergency Medicine
DX: F44.9 Dissociative and conversion disorder, unspecified (principal); R44.1 Visual hallucinations
CPT/HCPCS: 80307; G0480

== ENCOUNTER 2018-06-18 11:26 | Emergency (ER) | payer OTHER, MEDICARE ==
[~2018-06-18] VITALS: Ht 190.5 cm; Wt 149.7 kg
--- NOTE | 2018-06-18 12:05 | ED GENERAL ADULT ---
History of Present Illness General Chief Complaint: Seizure Stated Complaint: SEIZURE Source: patient, old records, EMS Exam Limitations: no limitations Vital Signs & Intake/Output Vital Signs & Intake/Output Vital Signs Date Time Temp Pulse Resp B/P B/P Pulse O2 O2 Flow FiO2 Mean Ox Delivery Rate 06/18 1642 98.1 68 18 123/63 96 Room Air 06/18 1429 97.8 65 18 143/83 96 Room Air 06/18 1147 98.1 76 20 137/80 94 Room Air 06/18 1131 Room Air ED Intake and Output 06/19 0000 06/18 1200 Intake Total Output Total Balance Patient 330 lb Weight Weight Reported by Patient Measurement Method Allergies Coded Allergies: hydroxychloroquine (From PLAQUENIL) (Intermediate, SWEATS AND CHILLS 12/22/16) venom-honey bee (BEE VENOM (HONEY BEE)) (Intermediate, LOCAL REACTION 12/22/16) atenolol (Mild, RASH 12/22/16) labetalol (Mild, RASH 12/22/16) pimozide (From ORAP) (ELEVATED HR 12/22/16) lorazepam (Severe, HALLUCINATIONS AND AGRESSIVE BEHAVIOR 12/22/16) bupropion (Intermediate, TACHYCARDIA, ANXIETY 12/22/16) divalproex sodium (From DEPAKOTE) (HALLUCINATIONS 10/03/17) haloperidol (MAKES HIM JUMPY 12/22/16) Reconcile Medications Aripiprazole (Abilify) 5 MG TABLET 5 MG PO AT BEDTIME moods Dexlansoprazole (Dexilant) 60 MG ANSHUL.BP 1 CAP PO DAILY GI (Reported) Meloxicam 15 MG TABLET 1 TAB PO DAILY PAIN (Reported) Methotrexate 2.5 MG TABLET 3 TAB PO QWED PSORIATIC ARTHRITIS (Reported) Sertraline HCl (Zoloft) 100 MG TABLET 200 MG PO DAILY@0800 Depression Triage Note: PT BIBA FROM WORK C/O FEELING SHAKY, AND SEIZURE LIKE ACTIVITY TO THE ARMS AND LEGS.. PT HAS HX SEIZURES. PT IS A/O NO POSTICTAL ACTIVITY Triage Nurses Notes Reviewed? yes Onset: Abrupt Duration: day(s): (1), better, changing over time Timing: single episode today Injury Environment: work Severity: mild, moderate No Modifying Factors: none HPI: 47-year-old male history of anxiety, depression, pseudoseizures presents for evaluation of A possible seizure. Patient reports he was at work when he suddenly felt weak confused dizzy. He states he went in the back and sat down when he suddenly started shaking his arms and legs. He never lost consciousness he did not fall or hit his head. He was awake the entire time. There is no tongue laceration bowel or bladder dysfunction. No chest pain or shortness of breath. This is similar to multiple other episodes the patient has had. He is not on antiseizure medications. He's been evaluated here multiple times for similar symptoms. Currently patient states she feels weak and "out of it". No slurred speech changes in vision one-sided weakness or headaches. (Elia Mishra) Past History Travel History Traveled to [place] past 21 day No Medical History Any Pertinent Medical History? 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 No (Elia Mishra) Review of Systems Review of Systems Constitutional: Reports: weakness. EENTM: Reports: no symptoms. Respiratory: Reports: no symptoms. Cardiovascular: Reports: no symptoms. GI: Reports: no symptoms. Genitourinary: Reports: no symptoms. Musculoskeletal: Reports: no symptoms. Skin: Reports: no symptoms. Neurological/Psychological: Reports: see HPI, anxiety, other (PSEUDOSEIZURE). Hematologic/Endocrine: Reports: no symptoms. Immunologic/Allergic: Reports: no symptoms. All Other Systems: Reviewed and Negative (Elia Mishra) Physical Exam Physical Exam General Appearance: well developed/nourished, no apparent distress, alert, awake Head: atraumatic, normal appearance Eyes: Bilateral: normal appearance, PERRL, EOMI. Ears, Nose, Throat: hearing grossly normal Neck: normal inspection, supple, full range of motion Respiratory: normal breath sounds, chest non-tender, no respiratory distress, lungs clear Cardiovascular: regular rate/rhythm, normal peripheral pulses Peripheral Pulses: 2+ radial (R), 2+ radial (L) Gastrointestinal: normal bowel sounds, soft, non-tender, no organomegaly Back: normal inspection, normal range of motion, no vertebral tenderness Extremities: normal inspection, normal range of motion, no edema Neurologic/Psych: no motor/sensory deficits, awake, alert, oriented x 3, normal gait, normal mood/affect, samples and repairs preparer II-XII nml as tested, CEREBELLAR FUNCTION INTACT Skin: intact, normal color, warm/dry Lymphatic: no anterior cervical abhi Core Measures ACS in differential dx? No CVA/TIA Diagnosis: No Sepsis Present: No Sepsis Focused Exam Completed? No (Pipe TENORIO,Elia) Progress Differential Diagnoses I considered the following diagnoses in my evaluation of the patient: [ Pseudoseizure, seizure, electrolyte abnormality, dysrhythmia] Plan of Care: Orders Procedure Date/time Status Add-on Test (ER Only) 06/18 1321 Active ETHANOL 06/18 1212 Complete TROPONIN LEVEL 06/18 1132 Complete COMPREHENSIVE METABOLIC PANEL 06/18 1132 Complete CBC WITHOUT DIFFERENTIAL 06/18 1132 Complete EKG 06/18 1132 Active Laboratory Tests 06/18/18 1212: Anion Gap 10, Estimated GFR > 60, BUN/Creatinine Ratio 24.3, Glucose 98, Calcium 9.4, Total Bilirubin 0.3, AST 30, ALT 41, Alkaline Phosphatase 105, Troponin I < 0.01, Total Protein 7.2, Albumin 4.2, Globulin 3.0, Albumin/Globulin Ratio 1.4, CBC w Diff NO MAN DIFF REQ, RBC 4.70, MCV 88.5, MCH 30.1, MCHC 34.0, RDW 13.7, MPV 8.7, Gran % 57.2, Lymphocytes % 35.2, Monocytes % 6.5, Eosinophils % 0.7, Basophils % 0.4, Absolute Granulocytes 3.6, Absolute Lymphocytes 2.2, Absolute Monocytes 0.4, Absolute Eosinophils 0, Absolute Basophils 0, Serum Alcohol < 10.0 Patient presents for evaluation of a possible seizure. Patient has a history of pseudoseizures. During the episode he never lost consciousness. There is no chest pain or shortness of breath. No incontinence or tongue laceration. Patient is neurologically intact does not appear to be post ictal. Labs EKG ordered patient will be monitored. Blood work is unremarkable. Patient has been resting comfortably he's been in the emergency department almost 5 hours now and is requesting to go home. He is alert and oriented 3 has a steady gait. Patient has been seen here with similar episodes in the past. Advised patient to continue taking his medications follow-up with a neurologist. Discussed returning the cautions in detail. Avoid driving. Patient agrees the plan Initial ED EKG: normal sinus rhythm, LAD, BORDERLINE INFERIOR T WAVES Prior EKG: unchanged (Elia Mishra) Departure Departure Disposition: HOME OR SELF CARE Condition: Stable Clinical Impression Primary Impression: Seizure Referrals: Tiffanie HERNANDEZ,Mercedes Horton (PCP/Family) Additional Instructions: Continue all medications as directed follow-up with a neurologist. Monitor symptoms return with any concerns. Departure Forms: Customer Survey General Discharge Information (Elia Mishra) PA/LEADERSHIP DEVELOPMENT INSTRUCTOR Co-Sign Statement Statement: ED Attending supervision documentation- [] I saw and evaluated the patient. I have also reviewed all the pertinent lab results and diagnostic results. I agree with the findings and the plan of care as documented in the PA's/LEADERSHIP DEVELOPMENT INSTRUCTOR's documentation. [X] I have reviewed the ED Record and agree with the PA's/LEADERSHIP DEVELOPMENT INSTRUCTOR's documentation. [] Additions or exceptions (if any) to the PAs/LEADERSHIP DEVELOPMENT INSTRUCTOR's note and plan are summarized below: [] (Shamar Rodriguez DO) Critical Care Note Critical Care Note Critical Care Time: non-applicable (Elia Mishra)
[2018-06-18 12:21] LABS: ABSOLUTE BASOPHIL COUNT 0 /CUMM (0.0-0.2); ABSOLUTE EOSINOPHIL COUNT 0 /CUMM (0.0-0.7); ABSOLUTE GRANULOCYTE CT 3.6 /CUMM (1.4-6.5); ABSOLUTE LYMPH COUNT 2.2 /CUMM (1.2-3.4); ABSOLUTE MONOCYTE COUNT 0.4 /CUMM (0.10-0.60); BASOPHIL % 0.4 % (0.0-2.0); EOSINOPHIL % 0.7 % (0-5); GRANULOCYTE % 57.2 % (42.2-75.2); HEMATOCRIT 41.7 % (42-52); MEAN CORPUSCULAR HGB 30.1 PG (27.0-31.0); MEAN CORPUSCULAR VOLUME 88.5 FL (80.0-94.0); MEAN PLATELET VOLUME 8.7 FL (7.4-10.4); PLATELET COUNT 305 /CUMM (130-400); RBC DISTRIBUTION WIDTH 13.7 % (11.5-14.5); WHITE BLOOD CELL COUNT 6.3 /CUMM (4.8-10.8)
[2018-06-18 16:42] VITALS: BP 123/63
== END 2018-06-18 16:48 ==
LOC: ERH 11:26
PROVIDERS: Physician Assistant Medical
DX: R56.9 Unspecified convulsions (principal); R53.1 Weakness; R42 Dizziness and giddiness; I10 Essential (primary) hypertension
CPT/HCPCS: 93005; 93010; 96374; G0480; J0131

== ENCOUNTER 2018-06-20 15:15 | Emergency (ER) | payer OTHER, MEDICARE ==
[~2018-06-20] VITALS: Ht 185.4 cm; Wt 136.1 kg
--- NOTE | 2018-06-20 15:25 | ED GENERAL ADULT ---
History of Present Illness General Chief Complaint: General Adult Stated Complaint: BIBA WITH SEIZURE Source: EMS Exam Limitations: clinical condition Vital Signs & Intake/Output Vital Signs & Intake/Output Vital Signs Date Time Temp Pulse Resp B/P B/P Pulse O2 O2 Flow FiO2 Mean Ox Delivery Rate 06/20 1532 97.9 107 20 142/79 93 Room Air Allergies Coded Allergies: hydroxychloroquine (From PLAQUENIL) (Intermediate, SWEATS AND CHILLS 12/22/16) venom-honey bee (BEE VENOM (HONEY BEE)) (Intermediate, LOCAL REACTION 12/22/16) atenolol (Mild, RASH 12/22/16) labetalol (Mild, RASH 12/22/16) pimozide (From ORAP) (ELEVATED HR 12/22/16) lorazepam (Severe, HALLUCINATIONS AND AGRESSIVE BEHAVIOR 12/22/16) bupropion (Intermediate, TACHYCARDIA, ANXIETY 12/22/16) divalproex sodium (From DEPAKOTE) (HALLUCINATIONS 10/03/17) haloperidol (MAKES HIM JUMPY 12/22/16) Reconcile Medications Aripiprazole (Abilify) 5 MG TABLET 5 MG PO AT BEDTIME moods Dexlansoprazole (Dexilant) 60 MG CAP.BP 1 CAP PO DAILY GI (Reported) Meloxicam 15 MG TABLET 1 TAB PO DAILY PAIN (Reported) Methotrexate 2.5 MG TABLET 3 TAB PO QWED PSORIATIC ARTHRITIS (Reported) Sertraline HCl (Zoloft) 100 MG TABLET 200 MG PO DAILY@0800 Depression Triage Nurses Notes Reviewed? yes HPI: Patient is a 47-year-old male well-known to providers in this emergency department for his past history of focal seizures versus paroxysmal nonepileptic seizure disorder who presents today actively exhibiting seizure-like activity. During this, he was able to communicate somewhat, protect his face, and certainly was protecting his airway. EMS provided Versed 5 mg IV since the patient has a lorazepam allergy. We provided another 5 mg of Versed upon arrival. Patient is currently unable to participate in details of his HPI or ROS. Past History Travel History Traveled to [place] past 21 day No Medical History Any Pertinent Medical History? 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 No Review of Systems Review of Systems Constitutional: Reports: see HPI. Comments Other than the features mentioned in history of present illness above, a detailed review of systems was not possible secondary to the patient's altered/ unwilling to participate in exam Physical Exam Physical Exam General Appearance: actively exhibiting seizure-like activity. Comments: HEENT: Inspection of the head reveals a normocephalic cranium with no signs of trauma. Ophtho: Extraocular muscles are intact. The sclera are noninjected, and there is no obvious discharge. Neck: No signs of trauma or asymmetry to the neck. Respiratory: The patient exhibits no signs of labored breathing. Cardiac: Non-tachycardic. GI: No gross abdominal distention. : Deferred Neuro: Adderall the patient is exhibiting seizure-like activity, however it is localized to his right hand and during this activity he continually repeats "Ketan Trump Ketan Trump Ketan Trzaid." He was able to respond to commands and open his eyes, and protect his face. After benzodiazepines and reassurance, his seizure activity stopped during my initial encounter. Behavioral: Altered Dermatologic: Dermatologic examination reveals no obvious rashes or exanthems. Core Measures ACS in differential dx? No CVA/TIA Diagnosis: No Sepsis Present: No Sepsis Focused Exam Completed? No Progress Differential Diagnoses I considered the following diagnoses in my evaluation of the patient: Status epilepticus, seizure disorder, epilepsy, focal seizures, psychogenic nonepileptic seizure disorder. Plan of Care: Orders Procedure Date/time Status COMPREHENSIVE METABOLIC PANEL 06/20 1523 Complete CBC WITHOUT DIFFERENTIAL 06/20 1523 Complete Laboratory Tests 06/20/18 1700: Anion Gap 12, Estimated GFR > 60, BUN/Creatinine Ratio 27.5 H, Glucose 104 H, Calcium 9.3, Total Bilirubin 0.2, AST 24, ALT 38, Alkaline Phosphatase 98, Total Protein 7.2, Albumin 4.1, Globulin 3.1, Albumin/Globulin Ratio 1.3, CBC w Diff NO MAN DIFF REQ, RBC 4.74, MCV 89.1, MCH 29.7, MCHC 33.3, RDW 13.6, MPV 8.5, Gran % 73.2, Lymphocytes % 24.0, Monocytes % 2.2, Eosinophils % 0.4, Basophils % 0.2, Absolute Granulocytes 6.6 H, Absolute Lymphocytes 2.2, Absolute Monocytes 0.2, Absolute Eosinophils 0, Absolute Basophils 0 Initial ED EKG: none Comments: Patient's seizure activity resolved. It seems consistent with his history of paroxysmal nonepileptic seizure disorder. I reassessment he was sitting up, oriented, requesting discharge. He had no other complaints at reassessment, and I deemed him stable for discharge. I instructed him to follow up with his primary physician for reassessment. Departure Departure Time of Disposition: 1908 Disposition: HOME OR SELF CARE Condition: Stable Clinical Impression Primary Impression: Seizures Referrals: Mercedes Woods (PCP/Family) Additional Instructions: Follow-up with your primary doctor. Departure Forms: Customer Survey General Discharge Information Critical Care Note Critical Care Note Critical Care Time: non-applicable
[2018-06-20 15:32] VITALS: BP 142/79
[2018-06-20 17:12] LABS: ABSOLUTE BASOPHIL COUNT 0 /CUMM (0.0-0.2); ABSOLUTE EOSINOPHIL COUNT 0 /CUMM (0.0-0.7); ABSOLUTE GRANULOCYTE CT 6.6 /CUMM (1.4-6.5); ABSOLUTE LYMPH COUNT 2.2 /CUMM (1.2-3.4); ABSOLUTE MONOCYTE COUNT 0.2 /CUMM (0.10-0.60); BASOPHIL % 0.2 % (0.0-2.0); EOSINOPHIL % 0.4 % (0-5); GRANULOCYTE % 73.2 % (42.2-75.2); HEMATOCRIT 42.3 % (42-52); MEAN CORPUSCULAR HGB 29.7 PG (27.0-31.0); MEAN CORPUSCULAR HGB CONC 33.3 G/DL (33.0-37.0); MEAN CORPUSCULAR VOLUME 89.1 FL (80.0-94.0); MEAN PLATELET VOLUME 8.5 FL (7.4-10.4); PLATELET COUNT 305 /CUMM (130-400); RBC DISTRIBUTION WIDTH 13.6 % (11.5-14.5); RED BLOOD CELL CT 4.74 /CUMM (4.70-6.10)
== END 2018-06-20 19:40 ==
LOC: ERH 15:15
PROVIDERS: Student in an Organized Health Care Education/Training Program
DX: R56.9 Unspecified convulsions (principal); I10 Essential (primary) hypertension
CPT/HCPCS: 96374

== ENCOUNTER 2018-06-24 16:38 | Emergency (ER) | payer OTHER, MEDICARE ==
[~2018-06-24] VITALS: Ht 190.5 cm; Wt 136.1 kg
--- NOTE | 2018-06-24 16:50 | ED AMS/SEIZURE/WEAK/DIZZY ---
History of Present Illness General Chief Complaint: General Adult Stated Complaint: BIBA "SEIZURE LIKE ACTIVITY" Source: patient, old records Exam Limitations: no limitations Vital Signs & Intake/Output Vital Signs & Intake/Output Vital Signs Date Time Temp Pulse Resp B/P B/P Pulse O2 O2 Flow FiO2 Mean Ox Delivery Rate 06/24 2020 98.1 96 18 170/76 97 Room Air 06/24 1834 81 18 122/74 98 Room Air 06/24 1649 Room Air 06/24 1647 98.3 95 16 123/73 95 Room Air Allergies Coded Allergies: hydroxychloroquine (From PLAQUENIL) (Intermediate, SWEATS AND CHILLS 12/22/16) venom-honey bee (BEE VENOM (HONEY BEE)) (Intermediate, LOCAL REACTION 12/22/16) atenolol (Mild, RASH 12/22/16) labetalol (Mild, RASH 12/22/16) pimozide (From ORAP) (ELEVATED HR 12/22/16) lorazepam (Severe, HALLUCINATIONS AND AGRESSIVE BEHAVIOR 12/22/16) bupropion (Intermediate, TACHYCARDIA, ANXIETY 12/22/16) divalproex sodium (From DEPAKOTE) (HALLUCINATIONS 10/03/17) haloperidol (MAKES HIM JUMPY 12/22/16) Reconcile Medications Aripiprazole (Abilify) 5 MG TABLET 5 MG PO AT BEDTIME moods Dexlansoprazole (Dexilant) 60 MG CAP.BP 1 CAP PO DAILY GI (Reported) Meloxicam 15 MG TABLET 1 TAB PO DAILY PAIN (Reported) Methotrexate 2.5 MG TABLET 3 TAB PO QWED PSORIATIC ARTHRITIS (Reported) Sertraline HCl (Zoloft) 100 MG TABLET 200 MG PO DAILY@0800 Depression Triage Note: 47 Y/O MALE BIBA FROM A LOCAL PHARMACY FOR EVAL OF "SEIZURE LIKE ACTIVITY". PER EMS, PT WAS FOUND ON SCENE TO BE SHAKING R UPPER EXTREMITY HOWEVER WAS ABLE TO ANSWER ALL QUESTIONS APPROPRIATELY. FINGERSTICK [address]. PT ARRIVES TO ED WITH REPETITIVE MOVEMENTS OF R UPPER EXTREMITY; DOES ANSWER QUESTIONS APPROPRIATELY WHEN ASKED POSED QUESTIONS. PRE HOSPITAL IV HEPLOCKED AWAITING EVAL Triage Nurses Notes Reviewed? yes Onset: Abrupt Duration: minute(s): Timing: single episode today Injury Environment: pharmacy HPI: 47yo male with hx of focal seizures versus paroxysmal nonepileptic seizure disorder, anxiety, depression, conversion disorder BIBA for "seizure-like activity" while at the pharmacy today. Per EMS the patient was found shaking his right upper extremity however was alert and oriented, could answer questions appropriate at the time. Patient states that he was standing when he felt as though he may have a seizure, he felt it coming on and then fell backwards hitting his head on the ground. There was no loss of consciousness during this episode. Patient remembers the whole thing and felt shaking in his right arm. Patient states he has been having many seizures recently, he was seen here in the emergency department a few days ago for similar episode. Patient states he is on several psychotropic medications for these seizures. Patient reports mild headache. He denies vision changes, chest pain, abdominal pain. (Wandy Ruvalcaba) Past History Travel History Traveled to [place] past 21 day No Medical History Any Pertinent Medical History? 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 No (Wandy Ruvalcaba) Review of Systems Review of Systems Constitutional: Reports: no symptoms. EENTM: Reports: no symptoms. Respiratory: Reports: no symptoms. Cardiovascular: Reports: no symptoms. GI: Reports: no symptoms. Genitourinary: Reports: no symptoms. Musculoskeletal: Reports: see HPI. Skin: Reports: no symptoms. Neurological/Psychological: Reports: see HPI. Hematologic/Endocrine: Reports: no symptoms. Immunologic/Allergic: Reports: no symptoms. All Other Systems: Reviewed and Negative (Wandy Ruvalcaba) Physical Exam Physical Exam General Appearance: well developed/nourished, no apparent distress, alert, awake Head: atraumatic, normal appearance Eyes: Bilateral: normal appearance, PERRL, EOMI. 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 No CVA/TIA Diagnosis No Sepsis Present: No Sepsis Focused Exam Completed? No (Mariama TENORIO,Wandy Tillman) Progress Differential Diagnosis: arrythmia, alcohol intoxication, anemia, CVA/stroke, dehydration, drug intoxication, encephalitis, electrolyte imbalance, hypoglycemia, intracranial Hem., intracranial mass/tumor, pneumonia, UTI/pyelo Plan of Care: Orders Procedure Date/time Status URINE DRUG SCREEN FOR ER ONLY 06/24 1649 Complete URINALYSIS 06/24 1649 Complete TROPONIN LEVEL 06/24 1649 Complete PROLACTIN 06/24 164 Complete ETHANOL 06/24 164 Complete COMPREHENSIVE METABOLIC PANEL 06/24 164 Complete CBC WITHOUT DIFFERENTIAL 06/24 1649 Complete EKG 06/24 164 Active Laboratory Tests 06/24/18 2030: Urine Opiates Screen < 100, Methadone Screen < 40, Barbiturate Screen < 60, Ur Phencyclidine Scrn < 6.00, Amphetamines Screen < 100, U Benzodiazepines Scrn 187 , Urine Cocaine Screen < 50, Urine Cannabis Screen > 80.00 H, Urine Color YEL, Urine Clarity CLEAR, Urine pH 6.0, Ur Specific [place] >= 1.030, Urine Protein NEG, Urine Ketones NEG, Urine Nitrite NEG, Urine Bilirubin NEG, Urine Urobilinogen 0.2, Ur Leukocyte Esterase NEG, Ur Microscopic EXAM NOT REQUIRED, Urine Hemoglobin NEG, Urine Glucose NEG 06/24/18 1701: Anion Gap 11, Estimated GFR > 60, BUN/Creatinine Ratio 27.5 H, Glucose 102 H, Calcium 9.1, Total Bilirubin 0.3, AST 23, ALT 43, Alkaline Phosphatase 94, Troponin I < 0.01, Total Protein 7.1, Albumin 3.9, Globulin 3.2, Albumin/ Globulin Ratio 1.2, Prolactin 6.9, CBC w Diff NO MAN DIFF REQ, RBC 4.72, MCV 88.5, MCH 29.8, MCHC 33.7, RDW 13.6, MPV 8.7, Gran % 65.8, Lymphocytes % 26.6, Monocytes % 6.5, Eosinophils % 0.7, Basophils % 0.4, Absolute Granulocytes 5.8, Absolute Lymphocytes 2.3, Absolute Monocytes 0.6, Absolute Eosinophils 0.1, Absolute Basophils 0, Serum Alcohol < 10.0 Patient has been seen several times for similar symptoms in the past. He has persisted and shaking/tremor of right arm during exam. Patient is also very anxious however he is declining and a anxiolytic medications here in the emergency department. He states "I just want to go home". I offered the patient's CT imaging after declines. Patient had recent CT imaging in January of this year. Labs are stable. is present to bring the patient home. They both agree with the plan and feel comfortable at this time. Strict return precautions given. Symptoms most consistent with focal versus pseudoseizures. Initial ED EKG: sinus rhythm @88bpm, nonspecific ST changes Prior EKG: unchanged (06/18/18) (Mariama TENORIO,Wandy Tillman) Departure Departure Disposition: HOME OR SELF CARE Condition: Stable Clinical Impression Primary Impression: Seizure-like activity Secondary Impressions: Tremor Referrals: Mercedes Woods (PCP/Family) Additional Instructions: Continue taking your medications as prescribed. Follow-up with your primary doctor. Return if any worsening symptoms or concerns. Please note that there might be incidental findings in your evaluation that are unrelated to the current emergency department visit. Please notify your primary care doctor about this emergency department visit in order to obtain and review all of the testing performed so that these incidental findings can be monitored as needed. If you had an x-ray performed, please understand that some fractures may not be seen on the initial set of x-rays. If your symptoms persist you might need a repeat set of x-rays to check for such a fracture. If you had a laceration evaluated, please understand that foreign bodies such as glass or wood may not be visible to the naked eye or on plain x-rays. If the wound becomes red, swollen, increasingly more painful or if there is any drainage from the wound, please have it reevaluated by a physician for the possibility of a retained foreign body. If you're unable to follow up as outlined in the discharge instructions please return to the emergency department. Thank you for choosing the [facility] Emergency Department for your care. It was a pleasure to serve you today. Departure Forms: Customer Survey General Discharge Information (Mariama TENORIO,Wandy Tillman) PA/PET STYLIST Co-Sign Statement Statement: ED Attending supervision documentation- [] I saw and evaluated the patient. I have also reviewed all the pertinent lab results and diagnostic results. I agree with the findings and the plan of care as documented in the PA's/PET STYLIST's documentation. [x] I have reviewed the ED Record and agree with the PA's/PET STYLIST's documentation. [] Additions or exceptions (if any) to the PAs/PET STYLIST's note and plan are summarized below: [] (Geraldine HERNANDEZ,Yogesh Stewart)
[2018-06-24 17:31] LABS: ABSOLUTE BASOPHIL COUNT 0 /CUMM (0.0-0.2); ABSOLUTE EOSINOPHIL COUNT 0.1 /CUMM (0.0-0.7); ABSOLUTE GRANULOCYTE CT 5.8 /CUMM (1.4-6.5); ABSOLUTE LYMPH COUNT 2.3 /CUMM (1.2-3.4); ABSOLUTE MONOCYTE COUNT 0.6 /CUMM (0.10-0.60); BASOPHIL % 0.4 % (0.0-2.0); EOSINOPHIL % 0.7 % (0-5); GRANULOCYTE % 65.8 % (42.2-75.2); HEMATOCRIT 41.8 % (42-52); MEAN CORPUSCULAR HGB 29.8 PG (27.0-31.0); MEAN CORPUSCULAR HGB CONC 33.7 G/DL (33.0-37.0); MEAN CORPUSCULAR VOLUME 88.5 FL (80.0-94.0); MEAN PLATELET VOLUME 8.7 FL (7.4-10.4); PLATELET COUNT 310 /CUMM (130-400); RBC DISTRIBUTION WIDTH 13.6 % (11.5-14.5); RED BLOOD CELL CT 4.72 /CUMM (4.70-6.10); WHITE BLOOD CELL COUNT 8.8 /CUMM (4.8-10.8)
[2018-06-24 20:20] VITALS: BP 170/76
== END 2018-06-24 20:22 ==
LOC: ERH 16:38
PROVIDERS: Physician Assistant
DX: R56.9 Unspecified convulsions (principal); R25.1 Tremor, unspecified
CPT/HCPCS: 80307; 81003; 93005; 93010; G0480

== ENCOUNTER 2018-07-07 10:42 | Emergency (ER) | payer OTHER, MEDICARE ==
[2018-07-07 10:45] VITALS: BP 141/87
--- NOTE | 2018-07-07 10:59 | ED AMS/SEIZURE/WEAK/DIZZY ---
History of Present Illness General Chief Complaint: General Adult Stated Complaint: CONVULSION DISORDER Source: patient, family, old records, EMS Exam Limitations: no limitations Vital Signs & Intake/Output Vital Signs & Intake/Output Vital Signs Date Time Temp Pulse Resp B/P B/P Pulse O2 O2 Flow FiO2 Mean Ox Delivery Rate 07/07 1045 98.6 78 20 141/87 95 Room Air Allergies Coded Allergies: hydroxychloroquine (From PLAQUENIL) (Intermediate, SWEATS AND CHILLS 12/22/16) venom-honey bee (BEE VENOM (HONEY BEE)) (Intermediate, LOCAL REACTION 12/22/16) atenolol (Mild, RASH 12/22/16) labetalol (Mild, RASH 12/22/16) pimozide (From ORAP) (ELEVATED HR 12/22/16) lorazepam (Severe, HALLUCINATIONS AND AGRESSIVE BEHAVIOR 12/22/16) bupropion (Intermediate, TACHYCARDIA, ANXIETY 12/22/16) divalproex sodium (From DEPAKOTE) (HALLUCINATIONS 10/03/17) haloperidol (MAKES HIM JUMPY 12/22/16) Reconcile Medications Aripiprazole (Abilify) 5 MG TABLET 5 MG PO AT BEDTIME moods Dexlansoprazole (Dexilant) 60 MG CAP.BP 1 CAP PO DAILY GI (Reported) Meloxicam 15 MG TABLET 1 TAB PO DAILY PAIN (Reported) Methotrexate 2.5 MG TABLET 3 TAB PO QWED PSORIATIC ARTHRITIS (Reported) Sertraline HCl (Zoloft) 100 MG TABLET 200 MG PO DAILY@0800 Depression Triage Note: PT BIBA FROM DENTIST OFFICE FOR SEIZURE LIKE ACTIVITY S/P PROCEDURE. PER EMS, PT TOLD THEM HE TOOK VALIUM PRE-PROCEDURE. REPORTS +HEADACHE. Triage Nurses Notes Reviewed? yes HPI: Patient brought in by ambulance from his dentist's office after he had seizure- like activity upon standing. 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 He states he takes 10 mg of Valium prior to going to the dentist. Patient denies any injury. He there is no headache. There is no nausea or vomiting. There is no blurry vision. There is no chest pain or shortness of breath. Patient states he feels fine and this happens to him often and he just wants to go home. Past History Travel History Traveled to [place] past 21 day No Medical History Any Pertinent Medical History? see below for history Neurological: PSEUDO SEIZURES SINCE 20YO EENT: NONE Cardiovascular: hypertension Respiratory: NONE Gastrointestinal: GERD Hepatic: NONE Renal: ENLARGED PROSTATE Musculoskeletal: degen joint disease, psoariatic arthritis, CARPAL TUNNEL Psychiatric: anxiety, depression, CONVERSION DISORDER PTSD OCD Endocrine: NONE Blood Disorders: NONE Cancer(s): NONE WIRE SPINNER/Reproductive: NONE History of MRSA: No History of VRE: No History of CDIFF: No Surgical History Surgical History: cholecystectomy Psychosocial History Who do you live with Family What is your primary language Namibian Tobacco Use: Never used ETOH Use: denies use Illicit Drug Use: denies illicit drug use Family History Family History, If Any: Relation not specified for: *No pertinent family history Hx Contributory? No Review of Systems Review of Systems Constitutional: Reports: no symptoms. EENTM: Reports: no symptoms. Respiratory: Reports: no symptoms. Cardiovascular: Reports: no symptoms. GI: Reports: no symptoms. Genitourinary: Reports: no symptoms. Musculoskeletal: Reports: no symptoms. Skin: Reports: no symptoms. Neurological/Psychological: Reports: no symptoms. Hematologic/Endocrine: Reports: no symptoms. Immunologic/Allergic: Reports: no symptoms. All Other Systems: Reviewed and Negative Physical Exam Physical Exam General Appearance: well developed/nourished, alert, awake, mild distress Head: atraumatic, normal appearance Eyes: Bilateral: PERRL, EOMI. Ears, Nose, Throat: normal pharynx, normal ENT inspection, hearing grossly normal Neck: normal inspection, supple, full range of motion Respiratory: normal breath sounds, chest non-tender, no respiratory distress, lungs clear Cardiovascular: regular rate/rhythm, normal peripheral pulses Gastrointestinal: normal bowel sounds, soft, non-tender, no organomegaly Back: normal inspection, normal range of motion Extremities: normal range of motion, pelvis stable Neurologic/Psych: no motor/sensory deficits, awake, alert, oriented x 3, normal gait, normal mood/affect Skin: intact, normal color, warm/dry Lymphatic: no anterior cervical abhi Core Measures ACS in differential dx? No CVA/TIA Diagnosis No Sepsis Present: No Sepsis Focused Exam Completed? No Progress Differential Diagnosis: electrolyte imbalance, seizure disorder Plan of Care: RETURN NEEDED Initial ED EKG: none Departure Departure Disposition: HOME OR SELF CARE Condition: Stable Clinical Impression Primary Impression: Seizure Referrals: Mercedes Woods (PCP/Family) Additional Instructions: RETURN FOR ANY CONCERNS Departure Forms: Customer Survey General Discharge Information
== END 2018-07-07 12:00 ==
LOC: ERH 10:42
DX: R56.9 Unspecified convulsions (principal)

== ENCOUNTER 2018-07-10 15:02 | Emergency (ER) | payer OTHER, MEDICARE ==
[~2018-07-10] VITALS: Ht 190.5 cm; Wt 147.4 kg
[2018-07-10 15:26] LABS: ABSOLUTE BASOPHIL COUNT 0.1 /CUMM (0.0-0.2); ABSOLUTE EOSINOPHIL COUNT 0.1 /CUMM (0.0-0.7); ABSOLUTE GRANULOCYTE CT 4.8 /CUMM (1.4-6.5); ABSOLUTE LYMPH COUNT 2.8 /CUMM (1.2-3.4); ABSOLUTE MONOCYTE COUNT 0.5 /CUMM (0.10-0.60); BASOPHIL % 0.7 % (0.0-2.0); EOSINOPHIL % 0.8 % (0-5); GRANULOCYTE % 58.6 % (42.2-75.2); HEMATOCRIT 44.8 % (42-52); MEAN CORPUSCULAR HGB 30.4 PG (27.0-31.0); MEAN CORPUSCULAR HGB CONC 33.7 G/DL (33.0-37.0); MEAN CORPUSCULAR VOLUME 90.1 FL (80.0-94.0); MEAN PLATELET VOLUME 8.4 FL (7.4-10.4); PLATELET COUNT 353 /CUMM (130-400); RBC DISTRIBUTION WIDTH 13.5 % (11.5-14.5); RED BLOOD CELL CT 4.98 /CUMM (4.70-6.10); WHITE BLOOD CELL COUNT 8.1 /CUMM (4.8-10.8)
--- NOTE | 2018-07-10 15:40 | ED PSYCHIATRIC COMPLAINT ---
History of Present Illness General Chief Complaint: Psychiatric Related Complaint Stated Complaint: + SI Source: patient, old records Exam Limitations: no limitations Allergies Coded Allergies: hydroxychloroquine (From PLAQUENIL) (Intermediate, SWEATS AND CHILLS 12/22/16) venom-honey bee (BEE VENOM (HONEY BEE)) (Intermediate, LOCAL REACTION 12/22/16) atenolol (Mild, RASH 12/22/16) labetalol (Mild, RASH 12/22/16) pimozide (From ORAP) (ELEVATED HR 12/22/16) lorazepam (Severe, HALLUCINATIONS AND AGRESSIVE BEHAVIOR 12/22/16) bupropion (Intermediate, TACHYCARDIA, ANXIETY 12/22/16) divalproex sodium (From DEPAKOTE) (HALLUCINATIONS 10/03/17) haloperidol (MAKES HIM JUMPY 12/22/16) Reconcile Medications Aripiprazole (Abilify) 5 MG TABLET 5 MG PO AT BEDTIME moods Dexlansoprazole (Dexilant) 60 MG CAP.BP 1 CAP PO DAILY GI (Reported) Meloxicam 15 MG TABLET 1 TAB PO DAILY PAIN (Reported) Methotrexate 2.5 MG TABLET 3 TAB PO QWED PSORIATIC ARTHRITIS (Reported) Sertraline HCl (Zoloft) 100 MG TABLET 200 MG PO DAILY@0800 Depression Triage Note: PT TO ED WITH SI THOUGHTS. STATES HE WOULD TAKE ALL HIS MEDS OR SLIT HIS WRISTS. DIYA HI. ADMITS TO MARIJUANA USE, DENIES ETOH USE. Triage Nurses Notes Reviewed? yes Onset: Abrupt Duration: week(s):, constant Timing: recent history Severity: moderate, severe HPI: 47-year-old male comes into the emergency room for further evaluation of suicidal ideation. Patient reports that he's had thoughts of wanting to kill himself the last 2 weeks. He's had thoughts of taking all his medication or slitting his wrist. History of marijuana use. History of pseudoseizures. He reports she's been feeling. Present does not want to live anymore. He comes in for further evaluation. (Wilner Beltre) Vital Signs & Intake/Output Vital Signs & Intake/Output Vital Signs Date Time Temp Pulse Resp B/P B/P Pulse O2 O2 Flow FiO2 Mean Ox Delivery Rate 07/11 1327 98.0 89 20 152/93 98 Room Air 07/11 1134 98.1 82 17 156/85 99 Room Air 07/11 1033 97.9 86 18 143/82 96 07/11 0738 97.2 84 16 138/81 98 Room Air 07/10 2244 98.0 71 18 140/85 97 ED Intake and Output 07/11 0000 07/10 1200 Intake Total 0 Output Total Balance 0 Intake, Oral 0 Patient 325 lb Weight Weight Reported by Patient Measurement Method (Bucky HERNANDEZ,Edis Pagan) Past History Travel History Traveled to [place] past 21 day No Medical History Any Pertinent Medical History? see below for history Neurological: PSEUDO SEIZURES SINCE 20YO EENT: NONE Cardiovascular: hypertension Respiratory: NONE Gastrointestinal: GERD Hepatic: NONE Renal: ENLARGED PROSTATE Musculoskeletal: degen joint disease, psoariatic arthritis, CARPAL TUNNEL Psychiatric: anxiety, depression, CONVERSION DISORDER PTSD OCD Endocrine: NONE Blood Disorders: NONE Cancer(s): NONE CONSULTING SOLUTION DIRECTOR/Reproductive: NONE History of MRSA: No History of VRE: No History of CDIFF: No Surgical History Surgical History: cholecystectomy Psychosocial History Who do you live with Family What is your primary language Czech Tobacco Use: Quit >30 days ago ETOH Use: denies use Illicit Drug Use: marijuana Family History Family History, If Any: Relation not specified for: *No pertinent family history Hx Contributory? No (Wilner Beltre) Review of Systems Review of Systems Constitutional: Reports: no symptoms. EENTM: Reports: no symptoms. Respiratory: Reports: no symptoms. Cardiovascular: Reports: no symptoms. GI: Reports: no symptoms. Genitourinary: Reports: no symptoms. Musculoskeletal: Reports: no symptoms. Skin: Reports: no symptoms. Neurological/Psychological: Reports: see HPI. Hematologic/Endocrine: Reports: no symptoms. Immunologic/Allergic: Reports: no symptoms. All Other Systems: Reviewed and Negative (Wilner Beltre) Physical Exam Physical Exam General Appearance: alert, awake, mild distress Head: atraumatic Eyes: Bilateral: normal appearance. Ears, Nose, Throat: normal ENT inspection, hearing grossly normal Neck: normal inspection Respiratory: no respiratory distress Cardiovascular: regular rate/rhythm Extremities: normal range of motion Neurological/Psychiatric: awake, alert, depressed affect Appearance/Memory/Insight: appropriate appearance Behavoir/Eye Contact/Speech: cooperative Skin: intact, normal color, warm/dry SAD PERSONS SAD PERSONS Response Value Male Sex? yes 1 Depression/Hopelessness? yes 2 Excessive Ethanol/Drug Use? yes 1 Rational Thinking Loss? yes 2 Single//? yes 1 Social Support? has no support 1 Stated Future Intent? yes 2 Total 10 SAD PERSONS Done? yes (Wilner Beltre) Progress Differential Diagnosis: dementia, drug intoxication, drug overdose, drug withdrawal, electrolyte abnormality, encephalitis, hypoglycemia, hypothyroidism, IC hem/mass/tumor, meningitis, Depression, borderline personality, Hand-Off Endorsed To: Edis Lawler MD (Wilner Beltre) Plan of Care: Laboratory Tests 07/10/18 1545: Urine Opiates Screen < 100, Methadone Screen < 40, Barbiturate Screen < 60, Ur Phencyclidine Scrn < 6.00, Amphetamines Screen < 100, U Benzodiazepines Scrn > 800 H, Urine Cocaine Screen < 50, Urine Cannabis Screen > 80.00 H Hand-Off Endorsed To: Shamar Rodriguez DO Endorsed Time: 1899 Pending: consult (Edis Lawler MD) Departure Departure Condition: Stable Referrals: Mercedes Woods (PCP/Family) Departure Forms: Customer Survey General Discharge Information (Wilner Beltre) Departure Disposition: OTHER [facility] (AC[facility]) Clinical Impression Primary Impression: Suicidal ideation PA/METAL FABRICATING SUPERVISOR Co-Sign Statement Statement: ED Attending supervision documentation- [X] I saw and evaluated the patient. I have also reviewed all the pertinent lab results and diagnostic results. I agree with the findings and the plan of care as documented in the PA's/METAL FABRICATING SUPERVISOR's documentation. [X] I have reviewed the ED Record and agree with the PA's/METAL FABRICATING SUPERVISOR's documentation. [] Additions or exceptions (if any) to the PAs/METAL FABRICATING SUPERVISOR's note and plan are summarized below: [] (Edis Lawler MD) Departure Comments 07/10/18 The patient was signed out to me by Dr. Lawler at 7 PM. He is pending disposition by crisis. He was signed out to Dr. Chandler at 11 PM 1:10 PM The patient has been accepted to [facility] in [place]. The patient was signed out to me by Dr. Chandler at 7 AM. (Shamar Rodriguez DO) Departure Comments pt signed out to dr. rodriguez, 07/11/18, 7am, pending crises disposition PA/METAL FABRICATING SUPERVISOR Co-Sign Statement Statement: ED Attending supervision documentation- [] I saw and evaluated the patient. I have also reviewed all the pertinent lab results and diagnostic results. I agree with the findings and the plan of care as documented in the PA's/METAL FABRICATING SUPERVISOR's documentation. [x] I have reviewed the ED Record and agree with the PA's/METAL FABRICATING SUPERVISOR's documentation. [] Additions or exceptions (if any) to the PAs/METAL FABRICATING SUPERVISOR's note and plan are summarized below: [] (Geraldine HERNANDEZ,Yogesh Stewart) [X] I saw and evaluated the patient. I have also reviewed all the pertinent lab results and diagnostic results. I agree with the findings and the plan of care as documented in the PA's/METAL FABRICATING SUPERVISOR's documentation. [X] I have reviewed the ED Record and agree with the PA's/METAL FABRICATING SUPERVISOR's documentation. [] Additions or exceptions (if any) to the PAs/METAL FABRICATING SUPERVISOR's note and plan are summarized below: [] (Bucky HERNANDEZ,Edis Pagan) Departure Comments 07/10/18 The patient was signed out to me by Dr. Lawler at 7 PM. He is pending disposition by crisis. He was signed out to Dr. Chandler at 11 PM 1:10 PM The patient has been accepted to [facility] in [place]. The patient was signed out to me by Dr. Chandler at 7 AM. (Shamar Rodriguez DO) Departure Comments pt signed out to dr. rodriguez, 07/11/18, 7am, pending crises disposition (Geraldine HERNANDEZ,Yogesh Stewart)
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
[2018-07-11 13:27] VITALS: BP 152/93
== END 2018-07-11 14:48 | disposition short-term general hospital (02) ==
LOC: ERH 15:02
PROVIDERS: Physician Assistant
DX: R45.851 Suicidal ideations (principal); F12.10 Cannabis abuse, uncomplicated; I10 Essential (primary) hypertension; F44.5 Conversion disorder with seizures or convulsions
CPT/HCPCS: 80307; G0463; G0480

== ENCOUNTER 2018-07-25 21:44 | Inpatient (IN) | payer OTHER, MEDICARE ==
[~2018-07-25] VITALS: Ht 190.5 cm; Wt 144.2 kg
--- NOTE | 2018-07-25 22:01 | ED PSYCHIATRIC COMPLAINT ---
History of Present Illness General Chief Complaint: Psychiatric Related Complaint Stated Complaint: "WAS DREAMING AND BEGAN TO CUT HIMSELF" Source: patient, family Exam Limitations: no limitations Vital Signs & Intake/Output Vital Signs & Intake/Output Vital Signs Date Time Temp Pulse Resp B/P B/P Pulse O2 O2 Flow FiO2 Mean Ox Delivery Rate 07/27 0742 97.2 75 130/84 07/269 99.1 101 150/88 07/26 1941 98.6 95 19 150/86 97 Room Air 07/26 1500 97.5 87 18 130/88 94 ED Intake and Output 07/27 0000 07/26 1200 Intake Total Output Total Balance Patient 318 lb Weight Allergies Coded Allergies: hydroxychloroquine (From PLAQUENIL) (Intermediate, SWEATS AND CHILLS 12/22/16) venom-honey bee (BEE VENOM (HONEY BEE)) (Intermediate, LOCAL REACTION 12/22/16) atenolol (Mild, RASH 12/22/16) labetalol (Mild, RASH 12/22/16) pimozide (From ORAP) (ELEVATED HR 12/22/16) lorazepam (Severe, HALLUCINATIONS AND AGRESSIVE BEHAVIOR 12/22/16) bupropion (Intermediate, TACHYCARDIA, ANXIETY 12/22/16) divalproex sodium (From DEPAKOTE) (HALLUCINATIONS 10/03/17) haloperidol (MAKES HIM JUMPY 12/22/16) Triage Note: PT TO ED WITH C/O SELF INFLICTED LACERATIONS TO LEFT WRIST S/P [place] WHERE HE BELIEVED HE WAS CUTTING HIMSELF. RECENTLY ADMITTED AT [facility]. STARTED ON LEXAPRO. Triage Nurses Notes Reviewed? yes Onset: Gradual Duration: hour(s): Timing: recent history Severity: moderate HPI: 47 yo gentleman h/o depression, conversion disorder, pseudoseizures, presents with several lacerations to left arm. Per the patient, he was recently in-patient x 2 weeks for depression and was started on a new medication (lexapro). He has been taking it dutifully. He noted worsening dreams over the past several nights. Tonight, he felt a vivid dream of him cutting himself. He awoke and was in the kitchen having cut himself with a kitchen knife on his left wrist. Of note, he was seen for a sore throat, had a negative throat swab for strep, and was started on a z-pack. He took his second dose today. "It hasn't helped. " He notes no fever, chills, dyspnea, runny nose. He has no hallucinations at present. He denies SI/HI/drug or alcohol use. (Geraldine HERNANDEZ,Yogesh Stewart) Reconcile Medications Azithromycin 250 MG TABLET 1 DP PO DAILY ANTIBIOTIC, INFECTION (Reported) 2 the first day followed by 1 for days 2-5 Cholecalciferol (Vitamin D3) (Vitamin D3) 2,000 UNIT CAPSULE 1 CAP PO DAILY VITAMIN SUPPORT (Reported) Dexlansoprazole (Dexilant) 60 MG CAP.BP 1 CAP PO DAILY GI (Reported) Folic Acid 1 MG TABLET 1 TAB PO DAILY SUPPLEMENT (Reported) Lidocaine HCl (Lidocaine HCl Viscous) 2 % SOLUTION 5 ML PO TID UNKNOWN ( Reported) Methotrexate 2.5 MG TABLET 3 TAB PO QWED PSORIATIC ARTHRITIS (Reported) (Alexandra HERNANDEZ,Shamar Robin) Past History Travel History Traveled to [place] past 21 day No Medical History Any Pertinent Medical History? 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 No (Yogesh Chandler MD) Review of Systems Review of Systems Constitutional: Reports: no symptoms. EENTM: Reports: no symptoms. Respiratory: Reports: no symptoms. Cardiovascular: Reports: no symptoms. GI: Reports: no symptoms. Genitourinary: Reports: no symptoms. Musculoskeletal: Reports: no symptoms. Skin: Reports: no symptoms. Neurological/Psychological: Reports: no symptoms. Hematologic/Endocrine: Reports: no symptoms. Immunologic/Allergic: Reports: no symptoms. All Other Systems: Reviewed and Negative (Geraldine MD,Yogesh R.) Physical Exam Physical Exam General Appearance: well developed/nourished, mild distress Head: atraumatic Eyes: Bilateral: normal appearance. Ears, Nose, Throat: normal pharynx, normal ENT inspection Neck: normal inspection, supple, full range of motion Respiratory: normal breath sounds Cardiovascular: regular rate/rhythm Gastrointestinal: normal bowel sounds, soft, non-tender Extremities: left forearm with 2 deeper lacerations, one is 7cm, other 9cm, into subcutaneous layer. No tendon involvement. there are multiple superficial lacerations. Neurological/Psychiatric: no motor/sensory deficits, awake, flat, oriented x 3 Appearance/Memory/Insight: disheveled, impaired insight Behavoir/Eye Contact/Speech: cooperative SAD PERSONS SAD PERSONS Response Value Male Sex? yes 1 Age <19 or >45 years? yes 1 Depression/Hopelessness? yes 2 Rational Thinking Loss? yes 2 Single//? yes 1 Social Support? has support 0 Total 7 SAD PERSONS Done? yes (Geraldine HERNANDEZ,Yogesh Stewart) Progress Differential Diagnosis: med side effect, depression, conversion disorder vs other. Plan of Care: Orders Procedure Date/time Status Regular Diet 07/27 B Active MISSING MEDICATION FORM 07/27 UNK Active Patient Data - inpatient psych 07/26 2120 Active Admit to inpatient psych 07/26 2120 Active Vital Signs 07/26 2055 Active Inpt Psych Teach/Educate 07/26 2055 Active Nutritional Intake, Monitor 07/26 2055 Active Inpt Psych Auricular Acupunctu 07/26 2055 Active Vital Signs 07/26 203 Complete Weight 07/26 2017 Complete Admit to inpatient psych 07/26 1748 Active Activity/Ambulation 07/26 UNK Active Intake & Output 07/25 2211 Complete Current Medications Sig/Juli Start time Last Medication Dose Stop Time Status Admin Methotrexate 7.5 MG QWED 08/01 900 AC (Methotrexate 2.5MG Tab) Azithromycin 250 MG DAILY 07/27 900 AC 07/27 (Zithromax) 07/29 901 0840 Cholecalciferol 2,000 IU DAILY 07/27 0900 AC 07/27 (Vitamin D) 0840 Folic Acid 1 MG DAILY 07/27 0900 AC 07/27 (Folic Acid) 0840 Omeprazole 40 MG DAILY AC 07/27 07 AC 07/27 (Prilosec) 0539 Lidocaine 5 ML TID 07/26 2135 AC (Xylocaine Viscous) Diazepam 5 MG 4 TIMES/DAY PRN 07/25 2330 AC 07/26 (Valium) 194 Hydroxyzine HCl 50 MG TID PRN 07/25 233 AC (Atarax) Ibuprofen 800 MG 4 TIMES/DAY PRN 07/25 2330 AC 07/27 (Motrin) 0539 (Geraldine HERNANDEZ,Yogesh Stewart) Comments: 07/26/2018 3:09:17 PM patient 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 The patient has been evaluated by Dr. hernández, psychiatry, who is concerned about a possible neurologic issue. Patient has been evaluated by Dr. Partida previously felt patient was suffering from psychogenic seizures and a conversion disorder. I am paging Dr. Partida at the request of Dr. hernández for evaluation in the emergency department. 07/26/2018 3:57:59 PM I discussed this patient's case with Dr. Partida who feels that the patient would be best served at the [facility]. dr hernández notified. pt will be admitted to inpatient psychiatry. (Alexandra HERNANDEZ,Shamar Robin) Departure Departure Disposition: STILL A PATIENT Condition: Stable Clinical Impression Primary Impression: Self-injurious behavior Secondary Impressions: Depression, Forearm laceration, Sore throat Referrals: Mercedes Woods (PCP/Family) Departure Forms: Customer Survey General Discharge Information Comments pt to be signed out to dr. platt, 07/26/18, 7am. awaiting urine drug screen. (Geraldine HERNANDEZ,Yogesh Stewart) Procedures Laceration/Wound Repair Laceration/Wound Repair: Wound Location: 2 LACERATIONS ON LEFT FOREARM MEDIAL ASPECT... 11CM... TOOK 9 STITCHES, 4-0 PROLENE LATERAL ASPECT 9CM... TOOK 7 STITCHES, 4-O PROLENE Wound's Depth, Shape: linear Irrigated w/ Saline (ccs): 500 Betadine Prep? Yes Anesthesia: 1% lidocaine Volume Anesthetic (ccs): 8 Wound Repaired With: sutures Suture Size/Type: 4:0, proline Date of Last Tetanus: 07/25/18 Tetanus Status: up to date (Geraldine HERNANDEZ,Yogesh Stewart) Tetanus Status: up to date (Geraldine HERNANDEZ,Yogesh Stewart)
[2018-07-25 22:55] LABS: ABSOLUTE BASOPHIL COUNT 0 /CUMM (0.0-0.2); ABSOLUTE EOSINOPHIL COUNT 0.1 /CUMM (0.0-0.7); ABSOLUTE GRANULOCYTE CT 5.8 /CUMM (1.4-6.5); ABSOLUTE LYMPH COUNT 2.7 /CUMM (1.2-3.4); ABSOLUTE MONOCYTE COUNT 0.7 /CUMM (0.10-0.60); BASOPHIL % 0.4 % (0.0-2.0); EOSINOPHIL % 0.9 % (0-5); HEMATOCRIT 40.9 % (42-52); MEAN CORPUSCULAR HGB 30.4 PG (27.0-31.0); MEAN CORPUSCULAR VOLUME 89.2 FL (80.0-94.0); MEAN PLATELET VOLUME 8.1 FL (7.4-10.4); PLATELET COUNT 333 /CUMM (130-400); RBC DISTRIBUTION WIDTH 13.1 % (11.5-14.5); RED BLOOD CELL CT 4.59 /CUMM (4.70-6.10); WHITE BLOOD CELL COUNT 9.3 /CUMM (4.8-10.8)
[2018-07-26] MEDS ORDERED: ESCITALOPRAM OX20 MG PO (11:10)
[2018-07-26] MEDS ORDERED: VITAMIN D32000 UNIT PO (11:10)
[2018-07-26] MEDS ORDERED: FOLIC ACID1 M1 PO (11:10)
[2018-07-26] MEDS ORDERED: AZITHROMYCIN250 M1 PO (11:11)
[2018-07-26] MEDS ORDERED: LIDOCAINE HCL V15 ML PO (11:11)
--- NOTE | 2018-07-26 12:40 | ED PSYCH CRISIS CONSULTATION ---
See Addendum Crisis Consult Basic Assessment Date of Consult: 07/26/18 Responsible Person/Accompanied By: self Insurance Authorization: Insurance #1: Insurance name: MEDICARE A Phone number: Policy number: [id number] Group number: Authorization number: ED Provider: Patient's ED Provider: Geraldine HERNANDEZ,Yogesh Stewart Primary Care Physician: Patient's PCP: Mercedes Woods PCP's Current Psychiatrist: FREDDIE WINTERS Chief Complaint: Psychiatric Related Complaint Patient's Quote: "The Lexapro is giving me crazy dreams" Present Illness: Pt is a 47 year old male well known to [facility]. He presented to the ED overnight following an incident at home in which he was sleeping, dreaming about cutting himself and woke up in the kitchen after he cut himself with a kitchen knife. Pt required sutures for the lacerations. Pt reports he has been having worsening dreams over the last several days which he attributes to the addition of Lexapro. He was recently inpatient at [facility] and discharge on 07/23/18. Pt reports he was taken off the Zoloft (as he stated he was still depressed and experiencing SI) and started the Lexapro. Crisis confirmed medications at discharge from Angela ([phone]) from [facility]. Pt was discharged on Lexapro 20mg with follow up to [facility] with a therapist and 08/07/18 for a medication management appointments. Patient's diagnoses include: Psychogenic nonepileptic seizures (PNES)/ pseudoseizures, major depression, unspecficied anxiety and cannabis use disorder , severe. Pt smokes cannabis daily, utox was positive for cannabis and benzodiazepams (pt prescribed valium for seizures). Patient is alert, oriented x3, thoughts are intact and rational, speech is at a normal rate and tone. Pt denies SI/HI/AH/VH. Pt would like to go home. Pt would like to discontinue the Lexapro and resume Zoloft. Crisis discussed case with Dr. Streeter. Dr. Streeter to review chart and see patient. Final disposition to be determined. Patient's Address: [address] [place] [address] Other Phone Number: Who Do You Live With? Family Family/Informants Interviewed: cannot be obtained due to, Spoke with chelle Thualisha Roberts ([phone]). Thu states pt called her last night "freaking out" because he had cut himself with a knife and didn't mean to. She states she was upstairs in bed and he had fallen asleep on the couch downstairs. She is concerned that the Lexapro is causing nightmares that he's unconciously acting them out. She states pt just stopped Zoloft last while at [facility]. She believes the pt is depressed but not suicidal. She is concerned for his safety. She would like for him to have a medication adjustment. Zoloft + Abilify appeared to be effective from her point of view. She states pt does have sleep apnea. She states he has had an EEG but was unsure how long ago that was. She believes it was done at [facility]. Allergies - Coded Allergies: hydroxychloroquine (From PLAQUENIL) (Intermediate, SWEATS AND CHILLS 12/22/16) venom-honey bee (BEE VENOM (HONEY BEE)) (Intermediate, LOCAL REACTION 12/22/16) atenolol (Mild, RASH 12/22/16) labetalol (Mild, RASH 12/22/16) pimozide (From ORAP) (ELEVATED HR 12/22/16) lorazepam (Severe, HALLUCINATIONS AND AGRESSIVE BEHAVIOR 12/22/16) bupropion (Intermediate, TACHYCARDIA, ANXIETY 12/22/16) divalproex sodium (From DEPAKOTE) (HALLUCINATIONS 10/03/17) haloperidol (MAKES HIM JUMPY 12/22/16) Current Medications - Scheduled Medications Aripiprazole (Abilify) 5 MG TABLET 5 MG PO AT BEDTIME moods #1 Prescribed by Yogesh Walters MD on 01/03/18 Azithromycin 250 MG TABLET 1 DP PO DAILY ANTIBIOTIC, INFECTION #6 (Reported) Entered as Reported by Allen Persaud on 07/26/18 1111 Cholecalciferol (Vitamin D3) (Vitamin D3) 2,000 UNIT CAPSULE 1 CAP PO DAILY VITAMIN SUPPORT (Reported) Entered as Reported by Allen Persaud on 07/26/18 1110 Dexlansoprazole (Dexilant) 60 MG CAP.BP 1 CAP PO DAILY GI (Reported) Entered as Reported by Allen Persaud on 02/19/18 1525 Escitalopram Oxalate 20 MG TABLET 1 TAB PO DAILY MENTAL HEALTH #30 (Reported) Entered as Reported by Allen Persaud on 07/26/18 1110 Folic Acid 1 MG TABLET 1 TAB PO DAILY SUPPLEMENT (Reported) Entered as Reported by Allen Persaud on 07/26/18 1110 Lidocaine HCl (Lidocaine HCl Viscous) 2 % SOLUTION 5 ML PO TID UNKNOWN #100 ( Reported) Entered as Reported by Allen Persaud on 07/26/18 1111 Meloxicam 15 MG TABLET 1 TAB PO DAILY PAIN #90 (Reported) Entered as Reported by Allen Persaud on 02/19/18 1526 Methotrexate 2.5 MG TABLET 3 TAB PO QWED PSORIATIC ARTHRITIS (Reported) Entered as Reported by Kerry Barbour on 02/16/15 1657 Sertraline HCl (Zoloft) 100 MG TABLET 200 MG PO DAILY@0800 Depression #30 TAB Prescribed by uLis A Riggs MD on 01/15/18 Laboratory Results: Laboratory Tests 07/26/18 0223: Urine Opiates Screen < 100, Methadone Screen 55, Barbiturate Screen < 60, Ur Phencyclidine Scrn < 6.00, Amphetamines Screen < 100, U Benzodiazepines Scrn > 800 H, Urine Cocaine Screen < 50, Urine Cannabis Screen 70.20 H 07/25/18 2246: Anion Gap 10, Estimated GFR > 60, BUN/Creatinine Ratio 21.3, Glucose 102 H, Calcium 9.2, Total Bilirubin 0.4, AST 25, ALT 40, Alkaline Phosphatase 109, Total Protein 6.7, Albumin 3.9, Globulin 2.8, Albumin/Globulin Ratio 1.4, CBC w Diff NO MAN DIFF REQ, RBC 4.59 L, MCV 89.2, MCH 30.4, MCHC 34.0, RDW 13.1, MPV 8.1, Gran % 63.0, Lymphocytes % 28.6, Monocytes % 7.1, Eosinophils % 0.9, Basophils % 0.4, Absolute Granulocytes 5.8, Absolute Lymphocytes 2.7, Absolute Monocytes 0.7 H, Absolute Eosinophils 0.1, Absolute Basophils 0, Infectious Young Titer NEGATIVE, Serum Alcohol < 10.0 Past History Past Medical History Neurological: PSEUDO SEIZURES SINCE 20YO EENT: NONE Cardiovascular: hypertension Respiratory: NONE Gastrointestinal: GERD Hepatic: NONE Renal: ENLARGED PROSTATE Musculoskeletal: degen joint disease, psoariatic arthritis, CARPAL TUNNEL Psychiatric: anxiety, depression, CONVERSION DISORDER PTSD OCD Endocrine: NONE Blood Disorders: NONE Cancer(s): NONE 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 Cee previously Reason for Treatment MDD Dates of Treatment 2017-present Response to Treatment pt has responded well in the past Diagnosis by History: depression, anxiety, OCD, PTSD and conversion d/o Substance Use/Abuse History Drug Use/Abuse Substances Used/Abused Yes Substance Used/Abused Marijuana Last Used 07/25/18 How much used/taken 1 gram per week How often daily For how long longstanding use Route of use inhalation Substance Abuse Treatment Substance Abuse Treatment Past Substance Abuse [place] No Current Mental Status Mental Status Orientation: Person, Place, Situation Affect: Appropriate Speech: Normal Neuro-vegetative: Anhedonia, Loss of Interest, Sleep Disturbance Appearance Appearance- Dress/Hygiene: Pt presents in hospital attire. He has a bandage on his left wrist due to his self inflicted lacerations Behaviors Thought Process: Logical/Rational Thought Content: WNL Memory: WNL Insight: Fair SI/HI Risk Assessment Past Suicidal Ideation/Attempts Yes Current Suicidal Ideation/Att No Past Homicidal Ideation/Att: No Current Homicidal Ideation/Attempts No Degree of Intent: None Risk Factors: access to lethal means, high anxiety/distress, SA/MH hospitalized, substance abuse, male Lethality Ratin PTSD Checklist PTSD Done? 

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
--- NOTE | 2018-07-26 19:21 | ED PSYCHIATRIST/APRN CONSULT ---
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 Spoke with pt at length this was not a volitional suicide attempt. Pt recently started on lexapro had onset of lucid bizarre dreams, last night found himself slicing his arm, was in a semi- conscious state and then fully awakened in horror of what he was doing. Does not remember entering kitchen. Probable Hx epilepsy and pseudoseizure. My concern is that either pt did purposely hurt himself or that he has new onset frontal lobe seizure, coincidental new onset episode epilepsy possibly 2/2 lexapro. Pt requires taper/d/c of lexapro start of new med, neuro consult for possible AED and unit observation of sleep wake behavior, SIB and possible seizure behavior. Pt is not suicidal, delirious or psychotic at this time. Agress with plan. JScruggsMD
[2018-07-26 20:39] VITALS: BP 150/88
[2018-07-27 07:42] VITALS: BP 130/84
--- NOTE | 2018-07-27 12:57 | History & Physical ---
General Information and HPI MD Statement: I have seen and personally examined CINDY LAGUNAS and documented this H&P. The patient is a 47 year old M who presented with a patient stated chief complaint of "the Lexapro is giving me crazy dreams"]. Source of Information: patient, old records Exam Limitations: unable to give history History of Present Illness: 47-year-old white male with history of depression conversion disorder pseudoseizures presents with lacerations to the left arm, he stated "I was dreaming and began to cut myself. He was recently an inpatient for depression and was started on the Lexapro. Patient got several sutures in the emergency room the wrist area looks clean patient stated he got the tetanus toxoid in the ER. Allergies/Medications Allergies: Coded Allergies: hydroxychloroquine (From PLAQUENIL) (Intermediate, SWEATS AND CHILLS 12/22/16) venom-honey bee (BEE VENOM (HONEY BEE)) (Intermediate, LOCAL REACTION 12/22/16) atenolol (Mild, RASH 12/22/16) labetalol (Mild, RASH 12/22/16) pimozide (From ORAP) (ELEVATED HR 12/22/16) lorazepam (Severe, HALLUCINATIONS AND AGRESSIVE BEHAVIOR 12/22/16) bupropion (Intermediate, TACHYCARDIA, ANXIETY 12/22/16) divalproex sodium (From DEPAKOTE) (HALLUCINATIONS 10/03/17) haloperidol (MAKES HIM JUMPY 12/22/16) Home Med list Azithromycin 250 MG TABLET 1 DP PO DAILY ANTIBIOTIC, INFECTION (Reported) 2 the first day followed by 1 for days 2-5 Cholecalciferol (Vitamin D3) (Vitamin D3) 2,000 UNIT CAPSULE 1 CAP PO DAILY VITAMIN SUPPORT (Reported) Dexlansoprazole (Dexilant) 60 MG CAP.BP 1 CAP PO DAILY GI (Reported) Folic Acid 1 MG TABLET 1 TAB PO DAILY SUPPLEMENT (Reported) Lidocaine HCl (Lidocaine HCl Viscous) 2 % SOLUTION 5 ML PO TID UNKNOWN ( Reported) Methotrexate 2.5 MG TABLET 3 TAB PO QWED PSORIATIC ARTHRITIS (Reported) Compliance With Home Meds: UNKNOWN Past History Travel History Traveled to [place] past 21 day No Medical History Neurological: PSEUDO SEIZURES SINCE 20YO EENT: NONE Cardiovascular: hypertension Respiratory: NONE Gastrointestinal: GERD Hepatic: NONE Renal: ENLARGED PROSTATE Musculoskeletal: degen joint disease, psoariatic arthritis, CARPAL TUNNEL Psychiatric: anxiety, depression, CONVERSION DISORDER PTSD OCD Endocrine: NONE Blood Disorders: NONE Cancer(s): NONE 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 Home Primary Language: Armenian Functional Ability ADLs Independent: dressing, eating, toileting, bathing. Ambulation: independent IADLs Independent: shopping, housework, finances, food prep, telephone, transportation , medication admin. Review of Systems Review of Systems Constitutional: Reports: see HPI. Exam & Diagnostic Data Last 24 Hrs of Vital Signs/I&O Vital Signs Date Time Temp Pulse Resp B/P B/P Pulse O2 O2 Flow FiO2 Mean Ox Delivery Rate 07/27 0742 97.2 75 130/84 07/26 2039 99.1 101 150/88 07/26 1941 98.6 95 19 150/86 97 Room Air 07/26 1500 97.5 87 18 130/88 94 Intake & Output 07/27 1600 07/27 0800 07/27 0000 Intake Total Output Total Balance Patient 318 lb Weight Physical Exam General Appearance Alert, Oriented X3, Cooperative, No Acute Distress Skin Several lacerations in the wrist area most of them superficial acouple deeper and have sutures, no signs of infection. HEENT PERRLA, EOMI, Mucous Membr. moist/pink Neck Supple, No JVD, +2 Carotid Pulse wo Bruit, No LAD Lymphatic Axillary nl, Cervical nl Cardiovascular Regular Rate, No Murmurs Lungs Clear to Auscultation, Normal Air Movement Abdomen Soft, No Tenderness, No Hepatospenomegaly Neurological Exam Findings: Normal Gait, Normal Speech, Strength at 5/5 X4 Ext, Normal Tone, Sensation Intact, Cranial Nerves 3-12 NL, Reflexes 2+ Cranial Nerves II through XII: Intact Extremities No Cyanosis, No Edema, Normal Pulses Vascular Normal Pulses, Pulses Symmetrical Last 24 Hrs of Labs/Mike: Laboratory Tests 07/26/18 0223: Urine Opiates Screen < 100, Methadone Screen 55, Barbiturate Screen < 60, Ur Phencyclidine Scrn < 6.00, Amphetamines Screen < 100, U Benzodiazepines Scrn > 800 H, Urine Cocaine Screen < 50, Urine Cannabis Screen 70.20 H 07/25/18 2246: Anion Gap 10, Estimated GFR > 60, BUN/Creatinine Ratio 21.3, Glucose 102 H, Calcium 9.2, Total Bilirubin 0.4, AST 25, ALT 40, Alkaline Phosphatase 109, Total Protein 6.7, Albumin 3.9, Globulin 2.8, Albumin/Globulin Ratio 1.4, CBC w Diff NO MAN DIFF REQ, RBC 4.59 L, MCV 89.2, MCH 30.4, MCHC 34.0, RDW 13.1, MPV 8.1, Gran % 63.0, Lymphocytes % 28.6, Monocytes % 7.1, Eosinophils % 0.9, Basophils % 0.4, Absolute Granulocytes 5.8, Absolute Lymphocytes 2.7, Absolute Monocytes 0.7 H, Absolute Eosinophils 0.1, Absolute Basophils 0, Infectious [place] Titer NEGATIVE, Serum Alcohol < 10.0 Assessment/Plan As Ranked By This Provider Problem List: 1. Sore throat 2. Forearm laceration 3. Self-injurious behavior 4. Depression 5. Suicidal ideation Miscellaneous Miscellaneous Documentation Attending Case Discussed With: Yogesh Walters MD Primary Care Physician: Mercedes Woods Patient sees these Specialists Psych. Level of Patient Care: PHUC Weber Consults Needed: Consulting Specialty: Psychiatry Consulting Physician: Dr Walters Reason for Consult: SI depression. Attending Review Statement Attending Statement Attending MD Statement: examined this patient
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
[2018-07-27] MEDS ORDERED: DIAZEPAM5 M1 PO (13:10)
--- NOTE | 2018-07-27 13:14 | SOCIAL WORKER PROG NOTE PSYCH ---
Social Work Progress Note Progress Note Dr. Selena Rodriguez and I met together this afternoon. shared that he had tapered off Abilify recently and had been experiencing some increased depression. He ended up going to [facility] for 2 weeks. Stated they discontinued his Zoloft because he thought he was having a problem with it and started on Lexapro. Since this change he reports vivid dreams. He got up Monday night having thought he was having a bad dream about cutting and discovered that he was cutting his left wrist with a knife from the kitchen. He stated that he panicked and called for his fiance Thu. She then brought him to the ER. He denies this was a suicide attempt. He required 16 sutures. He said he doesn't want to be here and would like to be home. Just scared that this could happen again. He is living at home with Tuh and his 19 year old son. 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 Talked about coming up with a safety plan. Dr. Walters asked if he wanted to resume the Zoloft? said he would like to do that. He will resume at 200mg. He denies feeling really sad- rated sadness today at a 3 (0-10, 10 being severe) and anxiety a 7. He denies SI/HI, AH/VH. He says he feels more "frazzled" about things than anything. He reports he had some SI about 4 days ago. He is okay with the idea of going home today and resuming services at [facility] next week. I told him we will talk to Thu and see if she agrees with this plan. and I called Thu together. I reiterated that is changing back to Zoloft and discontinuing Lexapro. She was happy to hear that. Stated the doctor is looking to discharge home today and continue with services next week. She was happy to hear that he wanted to come home and she was fine with that. I asked what a safety plan would look like with him returning home? She said she and 's son would be home through Monday and they will stay with him, including sleeping in the same room. I asked about locking up the knives? She said she would do that. I asked if there were any guns? She said no. She is available to strip picker at 2:30pm today. feels good about this plan. Called OPS to confirm follow up appt's. I was told that will only need the 08/01 appt. at 10:30am with Dr. Streeter.
[2018-07-27] MEDS ORDERED: MOBIC15 M1 PO (13:27)
[2018-07-27] MEDS ORDERED: ZOLOFT100 M1 PO (13:30)
--- NOTE | 2018-07-27 13:41 | CPS PROVIDER INIT ASMT PSYCH ---
[facility] Note Reviewed: Yes Patient Seen and Examined: Yes (seen with Leola Silva and MS3) Identifying Information: 47 yo WM admitted on 07/26/18 on a voluntary basis, referred by ER. Known to me from his prior tx on and from ER consultation on 01/18/18. Chief Complaint: Cut self after a dream. Required sutures. Reporting vivid dreams after SSRI changes from Zoloft to Lexapro at [facility]. Reaction to Hospitalization: "Really don't want to be here." History of Present Illness Onset of Illness: On Monday07/25/18 PM, dreamt about cutting himself and awoke, finding that he was cutting himself with a kitchen knife. Chronic mental illness including non-epileptiform seizures (with frequent ER visits). Circumstances Leading to Admission: Cut left wrist, requiring multiple sutures. Did not have suicidal intent. Problem(s) Justifying Need for Admission: Cut self. Other HPI: History of major depression, generalized anxiety, PTSD and pseudoseizures. Patient reports that he was tapering off of Abilify for several months. Reports that he believed Abilify was not helping and was making him more depressed. He was hospitalized at [facility] for 2 weeks. Reports he decided Zoloft was not working anymore, so he was switched to Lexapro and then started experiencing lucid dreams. While he was not having visual hallucinations, he saw things out of the corner of his eyes. On Monday p.m., he dreamt that he was cutting and then he awoke to find that he had actually been slashing his left wrist with a kitchen knife. He panicked and wrapped it and called upstairs to his fiance who brought him to the emergency room. States he required 16 stitches. Reports sleep is not good at all. Appetite is the same, good. Energy is decreased. Case and treatment plan discussed in team meeting. Staff reports that the patient is denying suicidal ideation. Described as isolative. Past Psychiatric History Past Diagnosis(es)- if any: Depression PTSD History of OCD Obesity Non-epileptiform seizure disorder Psoriatic arthritis Status post laceration to left wrist Past Precipitating Factors- if any: Suicidal ideation. - Include inpatient and outpatient treatment Treatment History: Patient has been attending outpatient treatment at [facility] with Laurie Church and Artemio. Patient reports he has been hospitalized about 6 times: twice here, [facility] once, [facility] twice and 6 weeks at a hospital in [place] at age 18. History of Suicide Attempts or Gestures No history of suicide attempts. Patient denies that this episode was a suicide attempt. Substance Abuse History: Denies use of tobacco. Alcohol once or twice a month, socially. Patient reports he uses marijuana but he has been off it for 3 weeks. Nonetheless, urine drug screen was positive for marijuana. Allergies: Coded Allergies: hydroxychloroquine (From PLAQUENIL) (Intermediate, SWEATS AND CHILLS 12/22/16) venom-honey bee (BEE VENOM (HONEY BEE)) (Intermediate, LOCAL REACTION 12/22/16) atenolol (Mild, RASH 12/22/16) labetalol (Mild, RASH 12/22/16) pimozide (From ORAP) (ELEVATED HR 12/22/16) lorazepam (Severe, HALLUCINATIONS AND AGRESSIVE BEHAVIOR 12/22/16) bupropion (Intermediate, TACHYCARDIA, ANXIETY 12/22/16) divalproex sodium (From DEPAKOTE) (HALLUCINATIONS 10/03/17) haloperidol (MAKES HIM JUMPY 12/22/16) Home Med List: Methotrexate 7.5 mg every Monday Folate 1200 mcg daily Vitamin D3 2000 international units daily Dexilant 60 mg daily Viscous lidocaine 5 mL 3 times daily Diazepam as needed Meloxicam 15 mg daily Finishing azithromycin Off Abilify Off Zoloft 200 mg daily - Include any medical condition(s) that may - impact the patient's recovery/remission Past Medical History: Recent laceration of left wrist with sutures Psoriatic arthritis Overweight Non-epileptiform seizure disorder, not in treatment with a neurologist. 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 Substance Use: Father was alcoholic and took pain medications. He when patient was 18 years old. Father had hemophilia and reportedly from AIDS. Suicides: Denied. Social History Living Situation: Lives with antonino, patient's 19-year-old son, antonino's 19-year-old son and antonino's 15-year-old daughter. Significant Relationships (family/friends): Antonino, son and jessee's children Father is Mothers in [place] Patient has 2 older sisters, one in [place] and one in [place] Education: Dropped out of high school and got his GED at 19. Had 1 year of technical school in [employer]. Vocation/Occupation: On disability. Works part-time at [employer]. Legal: No history of arrests. Healthly Behaviors Screening Tobacco Screening Tobacco Use from ED Docu: Never used - If tobacco counseling indicated - the following topics are required. - #1 Recognizing dangerous situations. - #2 Coping Skills. - #3 Basic information about quitting. Status of Tobacco Cessation Counseling: Not Applicable Cessation Med Status Not Applicable Alcohol Screening - ETOH screen POS if BAL >=80 or Audit-C>= M4/F3 Audit-C Score from Diag Assess: 0 Blood Alcohol Level: Laboratory Tests 07/25 2246 Toxicology Serum Alcohol (<10 MG/DL) < 10.0 Alcohol Use Screening Results: Neg per Audit C &/or BAL - If ETOH counseling indicated - the following topics are required. - #1 Express concern about the patient's - drinking at unhealthy levels, include informing - of national norms for moderate drinking: - men <= 14 drinks/week, max 4 drinks/occasion - women <= 7 drinks/week, max 3 drinks/occasion - #2 Providing feedback, including linking alcohol to - negative physical effects (liver injury, hypertension) - negative emotional effects (relationship problems and - depression) - negative occupational consequences (reduced work - performance) - #3 Advising the patient to abstain from alcohol or - to drink below national norms for moderate drinking - (as listed above). Status of ETOH Use Counseling: N/A B/C NO ETOH Use Metabolic Screening - Screen if on a Neuroleptic Medication - Metabolic screening should include: - Blood Pressure, BMI, Glucose or Hgb A1c, & a - Lipid profile from within the past 365 days. Metabolic Screening ([x]) Not Applicable, patient not on a neuroleptic. OR () Patient on a neuroleptic(s) . Enter below results for Hemoglobin A1C, and lipid panel if obtained during the last 365 days. BMI: 39.700 Blood Pressure: 130/84 Laboratory Results From [facility] (If applicable): Exam and Plan Mental Status Examination Ambulation Status: Normal gait. Appearance: Casually dressed, overweight white male with a light carmona, with left wrist bandaged, in no acute distress. Attitude towards examiner: Calm, polite and cooperative. Psychomotor activity: There is no psychomotor agitation or retardation. Behavior: Unremarkable. Quality of speech: Normal in volume, rate and tone. Affect: Calm and blunted. Mood: "I don't even know." Feels frazzled and upset. Rates sad mood 3/10. Rates anxiety /10. Denies feeling hopeless or worthless. Does feel helpless. Feels guilty about everything. Suicidal Ideation: Denies active and passive suicidal ideation. Last had suicidal ideation 4 days ago. Homicidal Ideation: Denies homicidal ideation. Hallucinations: Denies auditory hallucinations. Denies visual hallucinations but has experienced delusions, seeing movement and shadows and things scurrying. Paranoid/Delusional Material: Denies paranoid ideation and magical cardenas. Difficulties with thought organization: None. Insight: Limited. Judgment: Fair currently. Orientation: Oriented 3 but gives the date as 07/28/18. Correctly names the president and guest services associate. Cognition: Grossly intact. Reports the distance from [place] to [place] is 3000 miles. Memory Function: Grossly intact. Estimate of intellectual functioning: Average. Assets/Strengths Patient Identified Assets/Strengths: Empathetic. Drawing. Impression/Plan Impression and Plan: The patient is here after an episode of wrist slashing which he relates to a dream and to being treated with Lexapro. Lexapro has been discontinued. Patient likely has some histrionic features. He has a long history of non- epileptiform seizures and very likely conversion disorder present. - Include all active medical diagnosis that require tx DSM 5 Diagnosis(es): Unspecified depression PTSD History of OCD Cannabis use disorder Obesity Non-epileptiform seizure disorder Psoriatic arthritis Status post laceration left wrist. - Initial Tx Plan for Active Psych & Medical Conditions Treatment Plan: The patient has been monitored overnight. He is not experiencing suicidal ideation. He would like discharge. Lexapro has been discontinued. Per patient request, we are restarting Zoloft at 200 mg daily. Patient will have outpatient follow-up next week at [facility]. We discussed safety plan, including returning to the ER as needed. Patient's fiance has agreed to lock up knives. - Factors that would help patient function - in a less restrictive setting. Factors: Not suicidal.
--- NOTE | 2018-07-27 13:41 | Patient Discharge Instructions ---
Psych Discharge Inst General Discharge Information Reason for Admission: Cut left wrist after a dream. Patient believes Lexapro was making him worse. Psy Discharge Primary Diag+ Unspecified depression Psy Discharge Secondary Diag+ PTSD Hx OCD Cannabis use disorder Obesity Non- epileptiform sz d/o Psoriatic arthritis S/p laceration to L wrist Summary Tests/Major Procedures Lab ALT 40 U/L 07/25/18 2246 AST 25 U/L 07/25/18 2246 BUN 17 mg/dL 07/25/18 2246 Calcium 9.2 mg/dL 07/25/18 2246 Carbon Dioxide 25 mmol/L 07/25/18 2246 Chloride 103 mmol/L 07/25/18 2246 Creatinine 0.8 mg/dL 07/25/18 224 Estimated GFR > 60 ml/min 07/25/18 224 Glucose 102 mg/dL H 07/25/18 2246 Potassium 3.8 mmol/L 07/25/18 2246 Sodium 139 mmol/L 07/25/18 2246 Absolute Monocytes 0.7 /CUMM H 07/25/18 2246 Hct 40.9 % L 07/25/18 2246 Hgb 13.9 G/DL L 07/25/18 2246 Plt Count 333 /CUMM 07/25/18 2246 RBC 4.59 /CUMM L 07/25/18 2246 WBC 9.3 /CUMM 07/25/[address] Titer NEGATIVE 07/25/18 2246 Serum Alcohol < 10.0 MG/DL 07/25/18 2246 U Benzodiazepines Scrn > 800 NG/ML H 07/26/18 0223 Urine Cannabis Screen 70.20 NG/ML H 07/26/18 0223 Studies Pending at DC: None. Patient Instructions Contact Information Your Psychiatrist on [facility] was Yogesh Walters MD * If you are experiencing an emergency related to this hospitalization, please call [phone] to contact the treating psychiatrist or the psychiatrist-on- call. * To Request a copy of your medical records, please contact the Medical Records Department at [phone]. * To request results of studies pending at the time of discharge, please call [phone]. * Continue your Medications until directed to stop by your Healthcare provider. General Medication Information Please continue to take your new medications and your continued home medications , unless otherwise indicated on your discharge medication list, or unless directed by your MD or VMWARE ENGINEER to stop them. Special Instructions Diet Regular Activity Normal Other Inst/Recommendations Please have sutures removed per ER instructions. See PCP about labs. - Tobacco Use Treatment Offered Post DC Medications Offered: Not Applicable Post DC Tobacco Treatment Plan: Not Applicable - EtOH/Drug Use D/O Treatment Offered Post DC Medications Offered: Med Not Indicated for D/O Post DC EtOH/SubAbuse TX Plan: Other SubAbuse/Dual Pgm ([facility]) Program Appt Date: 08/01/18 Program Appt Time: 1030 Metabolic Screening ([x]) Not Applicable, patient not on a neuroleptic. OR () Patient on a neuroleptic(s) . Enter below results for Hemoglobin A1C, and lipid panel if obtained during the last 365 days. BMI: 39.700 Blood Pressure: 130/84 Laboratory Results From [facility] (If applicable): Advance Directives Does the Patient have Medical Advance Directives No/Refused further info Does Pt have Psychiatric Advance Directives? No/Refused further info Does Patient have a Designated Surrogate Decision Maker: No Information About Psychiatric Advance Directives Provided? Refused Discharge Plan Post Hospital Treatment Plan: Returning to home and fiancee. Please stop using cannabis. Please have sutures removed from left wrist as per ER instructions. Please lock up all knives/sharps.
--- NOTE | 2018-07-27 15:59 | DISCHARGE SUMMARY REPORT-PSYCH ---
Visit Information Visit Dates/Diagnosis' Admission Date: 07/26/18 Discharge Date: 07/27/18 Reason for Admission: Cut left wrist after a dream. Patient believes Lexapro was making him worse. Psy Discharge Primary Diag: Unspecified depression Psy Discharge Secondary Diag: PTSD Hx OCD Cannabis use disorder Obesity Non- epileptiform sz d/o Psoriatic arthritis S/p laceration to L wrist Hospital Course Significant Lab Findings: Lab ALT 40 U/L 07/25/18 2246 AST 25 U/L 07/25/182245 BUN 17 mg/dL 07/25/18 2246 Calcium 9.2 mg/dL 07/25/182245 Carbon Dioxide 25 mmol/L 07/25/18 224 Chloride 103 mmol/L 07/25/182245 Creatinine 0.8 mg/dL 07/25/182245 Estimated GFR > 60 ml/min 07/25/182245 Glucose 102 mg/dL H 07/25/182245 Potassium 3.8 mmol/L 07/25/186 Sodium 139 mmol/L 07/25/18 2246 Absolute Monocytes 0.7 /CUMM H 07/25/186 Hct 40.9 % L 07/25/182245 Hgb 13.9 G/DL L 07/25/182245 Plt Count 333 /CUMM 07/25/186 RBC 4.59 /CUMM L 07/25/186 WBC 9.3 /CUMM 07/25/18 2246 Infectious [place] Titer NEGATIVE 07/25/182245 Serum Alcohol < 10.0 MG/DL 07/25/18 2246 U Benzodiazepines Scrn > 800 NG/ML H 07/26/183 Urine Cannabis Screen 70.20 NG/ML H 07/26/18 0223 Course Complications: None. Consultations: The patient was seen by Dr. Yasmani Stewart for admission history and physical exam. Please refer to his note for additional information. Allergies: Coded Allergies: hydroxychloroquine (From PLAQUENIL) (Intermediate, SWEATS AND CHILLS 12/22/16) venom-honey bee (BEE VENOM (HONEY BEE)) (Intermediate, LOCAL REACTION 12/22/16) atenolol (Mild, RASH 12/22/16) labetalol (Mild, RASH 12/22/16) pimozide (From ORAP) (ELEVATED HR 12/22/16) lorazepam (Severe, HALLUCINATIONS AND AGRESSIVE BEHAVIOR 12/22/16) bupropion (Intermediate, TACHYCARDIA, ANXIETY 12/22/16) divalproex sodium (From DEPAKOTE) (HALLUCINATIONS 10/03/17) haloperidol (MAKES HIM JUMPY 12/22/16) Hospital Course/TX Response: The patient was monitored on the unit for safety and mood disturbance. He participated in multimodal treatments on the unit. Lexapro was stopped. Patient was restarted on Zoloft 200 mg daily. Patient denied suicidal ideation on date of discharge. Please refer to Yogesh Walters MD's Initial Assessment for patient's mental status on date of discharge. Discharge HBIPS - Tobacco Use Treatment Offered Post DC Medications Offered: Not Applicable Post DC Tobacco Treatment Plan: Not Applicable - EtOH/Drug Use D/O Treatment Offered Post DC Medications Offered: Med Not Indicated for D/O Post DC EtOH/SubAbuse TX Plan: Other SubAbuse/Dual Pgm ([facility]) Program Appt Date: 08/01/18 (Dr. Streeter) Program Appt Time: 1015 Metabolic Screening - Screen if on a Neuroleptic Medication - Metabolic screening should include: - Blood Pressure, BMI, Glucose or Hgb A1c, & a - Lipid profile from within the past 365 days. Metabolic Screening ([x]) Not Applicable, patient not on a neuroleptic. OR () Patient on a neuroleptic(s) . Enter below results for Hemoglobin A1C, and lipid panel if obtained during the last 365 days. BMI: 39.700 Blood Pressure: 130/84 Laboratory Results From [facility] (If applicable): Discharge Instructions General Discharge Information Multiple Neuroleptics: ([x]) Not Applicable OR Document below three failed attempts at monotherapy, or a plan to taper to monotherapy, or augmentation of Clozapine. () Discharge Diet Regular Discharge Activity Normal DC Disposition: Returning to home and fiancee. Referrals Ordered Referrals Outpatient Psych - Substance 08/01/18 248/250 YOLI Turner [id number] [facility] appt. with Dr. Streeter on 08/01/18 10:15am 248 YOLI Love [id number] Prescriptions Stop taking the following medications: Aripiprazole (Abilify) 5 MG TABLET ORAL AT BEDTIME Qty = 1 Sertraline HCl (Zoloft) 100 MG TABLET ORAL DAILY Qty = 30 Meloxicam (Meloxicam) 15 MG TABLET ORAL DAILY Qty = 90 Escitalopram Oxalate (Escitalopram Oxalate) 20 MG TABLET ORAL DAILY Qty = 30 Continue taking these medications: Methotrexate (Methotrexate) 2.5 MG TABLET 3 Tablet ORAL EVERY MONDAY Comments: not given in hospital Dexlansoprazole (Dexilant) 60 MG BP 1 Capsule ORAL DAILY Comments: Prilosec substituted in hospital Last Taken:07/27/18 Time:8am Folic Acid (Folic Acid) 1 MG TABLET 1 Tablet ORAL DAILY Comments: Last Taken:07/27/18 Time:8am Cholecalciferol (Vitamin D3) (Vitamin D3) 2,000 UNIT CAPSULE 1 Capsule ORAL DAILY Comments: Last Taken:07/27/18 Time:8am Azithromycin (Azithromycin) 250 MG TABLET 1 Dose Pack ORAL DAILY Qty = 6 Instructions: 2 the first day followed by 1 for days 2-5 Comments: Last Taken:07/27/18 Time:8am Lidocaine HCl (Lidocaine HCl Viscous) 2 % SOLUTION 5 Milliliters ORAL THREE TIMES DAILY Qty = 100 Comments: not taken in hospital Meloxicam (Mobic) 15 MG TABLET 1 Tablet ORAL DAILY Comments: not taken in hospital Start taking the following new medications: Diazepam (Diazepam) 5 MG TABLET 1 Tablet ORAL 4 TIMES A DAY as needed for ANXIETY Qty = 10 No Refills Comments: Last Taken:07/26/18 Time:4pm Sertraline HCl (Zoloft) 100 MG TABLET 2 Tablet ORAL DAILY Qty = 1 No Refills Comments: Last Taken:07/27/18 Time:2:30pm Other Inst/Recommendations Please have sutures removed per ER instructions. See PCP about labs. Studies Pending at Discharge None. Copies To: Sandi HERNANDEZ,[place]
--- NOTE | 2018-07-27 16:04 | SOCIAL WORKER PROG NOTE PSYCH ---
Social Work Progress Note Faxed Referral(s) Referred To: [facility]PS Transition of Care Documents sent: Health Summary Faxed to: [facility] Fax #: [phone] Faxed by: Leola Silva Date faxed: 07/27/18 Time Faxed: [phone]
== END 2018-07-27 15:05 | DRG 881 ==
LOC: ERH 21:44 → ERHI 07-26 17:48 → CP SOUTH 07-26 17:48 → ENTRNSPT 07-26 20:01 → EDTRNSPTSTS 07-26 20:12 → CP SOUTH 07-26 20:16 → CMPTRNSPT 07-26 20:17 → CP SOUTH 07-27 15:05
PROVIDERS: Pediatrics
PROC: 0HQEXZZ Repair Left Lower Arm Skin, External Approach (ICD-10-PCS; principal; 2018-07-25)
DX: F32.9 Major depressive disorder, single episode, unspecified (principal); F43.10 Post-traumatic stress disorder, unspecified; L40.50 Arthropathic psoriasis, unspecified; R56.9 Unspecified convulsions; F12.90 Cannabis use, unspecified, uncomplicated; E66.9 Obesity, unspecified; I10 Essential (primary) hypertension; K21.9 Gastro-esophageal reflux disease without esophagitis; S51.812A Laceration without foreign body of left forearm, initial encounter; Y92.000 Kitchen of unspecified non-institutional (private) residence as the place of occurrence of the external cause; X58.XXXA Exposure to other specified factors, initial encounter; Z88.8 Allergy status to other drugs, medicaments and biological substances; Z91.030 Bee allergy status; Z88.5 Allergy status to narcotic agent; Z90.49 Acquired absence of other specified parts of digestive tract
CPT/HCPCS: 80307; 90714; G0480; J0456; J1200; J2001; J3360; J3490

== ENCOUNTER 2018-07-30 12:12 | Emergency (ER) | payer OTHER, MEDICARE ==
[~2018-07-30 12:12] MED LIST changes: +AZITHROMYCIN250 M1 PO; +ESCITALOPRAM OX20 MG PO; +LIDOCAINE HCL V15 ML PO; +MOBIC15 M1 PO; +VITAMIN D32000 UNIT PO
--- NOTE | 2018-07-30 13:02 | ED NEURO DEFICIT/STROKE ---
History of Present Illness General Chief Complaint: Psychiatric Related Complaint Stated Complaint: BIBA MENTAL HEALTH COMPLAINT? PSEUDO SEIZURE? Source: patient Exam Limitations: clinical condition, agitated, not consistently cooperative Vital Signs & Intake/Output Vital Signs & Intake/Output Vital Signs Date Time Temp Pulse Resp B/P B/P Pulse O2 O2 Flow FiO2 Mean Ox Delivery Rate 07/30 1431 97.9 78 18 114/60 98 Room Air Room Air 07/30 1221 98.8 122 18 141/99 96 Room Air Room Air 07/30 1215 Room Air Allergies Coded Allergies: hydroxychloroquine (From PLAQUENIL) (Intermediate, SWEATS AND CHILLS 12/22/16) venom-honey bee (BEE VENOM (HONEY BEE)) (Intermediate, LOCAL REACTION 12/22/16) atenolol (Mild, RASH 12/22/16) labetalol (Mild, RASH 12/22/16) pimozide (From ORAP) (ELEVATED HR 12/22/16) lorazepam (Severe, HALLUCINATIONS AND AGRESSIVE BEHAVIOR 12/22/16) bupropion (Intermediate, TACHYCARDIA, ANXIETY 12/22/16) divalproex sodium (From DEPAKOTE) (HALLUCINATIONS 10/03/17) haloperidol (MAKES HIM JUMPY 12/22/16) Reconcile Medications Azithromycin 250 MG TABLET 1 DP PO DAILY ANTIBIOTIC, INFECTION (Reported) 2 the first day followed by 1 for days 2-5 Cholecalciferol (Vitamin D3) (Vitamin D3) 2,000 UNIT CAPSULE 1 CAP PO DAILY VITAMIN SUPPORT (Reported) Dexlansoprazole (Dexilant) 60 MG ANSHUL.BP 1 CAP PO DAILY GI (Reported) Diazepam 5 MG TABLET 1 TAB PO 4 TIMES/DAY PRN ANXIETY Folic Acid 1 MG TABLET 1 TAB PO DAILY SUPPLEMENT (Reported) Lidocaine HCl (Lidocaine HCl Viscous) 2 % SOLUTION 5 ML PO TID UNKNOWN ( Reported) Meloxicam (Mobic) 15 MG TABLET 1 TAB PO DAILY pain (Reported) Methotrexate 2.5 MG TABLET 3 TAB PO QWED PSORIATIC ARTHRITIS (Reported) Sertraline HCl (Zoloft) 100 MG TABLET 2 TAB PO DAILY depression Triage Nurses Notes Reviewed? yes HPI: Patient presents for evaluation of a possible seizure. Patient presents via EMS after having received Versed. The patient has a history of nonepileptic seizures for which he has been treated with Valium in the past. Apparently he arrived unannounced at a family friend's house. He then proceeded to become "incoherent" with possible seizure-like activity. EMS was contacted. Past History Travel History Traveled to [place] past 21 day No Medical History Any Pertinent Medical History? 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 No Review of Systems Review of Systems Constitutional: Reports: no symptoms. EENTM: Reports: no symptoms. Respiratory: Reports: no symptoms. Cardiovascular: Reports: no symptoms. GI: Reports: no symptoms. Genitourinary: Reports: no symptoms. Musculoskeletal: Reports: no symptoms. Skin: Reports: no symptoms. Neurological/Psychological: Reports: see HPI. Hematologic/Endocrine: Reports: no symptoms. Immunologic/Allergic: Reports: no symptoms. All Other Systems: Reviewed and Negative Physical Exam Physical Exam General Appearance: see below Cranial Nerves: see below Comments: Gen.: Well-nourished, well-developed, no acute respiratory distress. Head: Normocephalic, atraumatic. Eyes: Normal inspection bilaterally Ears: Normal inspection bilaterally Nose: Normal inspection Throat/mouth : Moist mucosa Neck: Supple, full range of motion, no goiter Heart: Regular rate and rhythm, no murmurs rubs or gallops Lungs: Clear to auscultation bilaterally with normal air entry Chest: Nontender Back: Normal range of motion Abdomen: Soft, nontender, nondistended, normal bowel sounds Extremities: Normal range of motion grossly, equal radial pulses, no cyanosis clubbing or edema, sutured left wrist laceration Neurologic: Cranial nerves grossly intact, speech is clear Skin: warm and dry Psychiatric: Mildly to moderately agitated, generally uncooperative although will answer simple questions Core Measures CVA/TIA Diagnosis: No Sepsis Present: No Sepsis Focused Exam Completed? No Progress Differential Diagnosis: electrolyte abnormality, dehydration, pseudoseizure, heatstroke Plan of Care: Orders Procedure Date/time Status Restraint- Discontinue 07/30 1405 Active Restraint- Behavioral (Order) 07/30 1315 Active Current Medications Sig/Juli Start time Last Medication Dose Stop Time Status Admin Diazepam 3 MG ONCE ONE 07/30 1300 CAN (Valium) 07/30 1301 Initial ED EKG: none Comments: 07/30/2018 12:59:51 PM upon arrival, was somewhat agitated and would not respond to focal intervention. Attempts to bandage it is sutured left wrist laceration resulted in him taking the bandage off with his teeth. Given his overall lack of cooperation with needed medical evaluation, the patient has been placed in block limited restraints 4. He was initially medicated with Versed prehospital. Although he is generally more calm he still has episodes of agitation and has attempted to remove his left arm from restraints. We have been able to obtain an IV and I ordered IV fluids given his diaphoresis. I have also ordered Valium for sedation. 07/30/2018 1:38:43 PM seems to be back to his baseline mental status. We will begin withdrawing restraints. offers no medical complaints at this time and agrees that an evaluation in the emergency department would likely be unrevealing. Additional information from patient's significant other obtained. Apparently patient's Lexapro is being switched to another mood stabilizer given the possibility of "sleepwalking". 07/30/2018 4:34:47 PM 's significant other is here to take him home. Departure Departure Disposition: HOME OR SELF CARE Condition: Stable Clinical Impression Primary Impression: Agitation Secondary Impressions: History of pseudoseizure Referrals: Mercedes Woods (PCP/Family) Additional Instructions: Follow-up with your primary care physician tomorrow for reevaluation. Drink lots of fluids. Continue your current medications. Return if any concerns or sudden worsening. Departure Forms: Customer Survey General Discharge Information
[2018-07-30 16:20] VITALS: BP 107/60
== END 2018-07-30 16:50 ==
LOC: ERH 12:12
DX: R45.1 Restlessness and agitation (principal); I10 Essential (primary) hypertension; N40.0 Benign prostatic hyperplasia without lower urinary tract symptoms; K21.9 Gastro-esophageal reflux disease without esophagitis; F41.9 Anxiety disorder, unspecified; F32.9 Major depressive disorder, single episode, unspecified; F43.10 Post-traumatic stress disorder, unspecified

== ENCOUNTER 2018-08-01 12:43 | Emergency (ER) | payer OTHER, MEDICARE ==
[2018-08-01 14:53] VITALS: BP 128/82
--- NOTE | 2018-08-01 15:09 | ED GENERAL ADULT ---
History of Present Illness General Chief Complaint: Seizure Stated Complaint: BIBA SEIZURE LIKE ACTIVITY Source: patient, family Exam Limitations: no limitations Vital Signs & Intake/Output Vital Signs & Intake/Output Vital Signs Date Time Temp Pulse Resp B/P B/P Pulse O2 O2 Flow FiO2 Mean Ox Delivery Rate 08/01 1453 97.5 80 20 128/82 96 Room Air 08/01 1249 98.1 88 19 131/75 95 Room Air Allergies Coded Allergies: hydroxychloroquine (From PLAQUENIL) (Intermediate, SWEATS AND CHILLS 12/22/16) venom-honey bee (BEE VENOM (HONEY BEE)) (Intermediate, LOCAL REACTION 12/22/16) atenolol (Mild, RASH 12/22/16) labetalol (Mild, RASH 12/22/16) pimozide (From ORAP) (ELEVATED HR 12/22/16) lorazepam (Severe, HALLUCINATIONS AND AGRESSIVE BEHAVIOR 12/22/16) bupropion (Intermediate, TACHYCARDIA, ANXIETY 12/22/16) divalproex sodium (From DEPAKOTE) (HALLUCINATIONS 10/03/17) haloperidol (MAKES HIM JUMPY 12/22/16) Reconcile Medications Cholecalciferol (Vitamin D3) (Vitamin D3) 2,000 UNIT CAPSULE 1 CAP PO DAILY VITAMIN SUPPORT (Reported) Dexlansoprazole (Dexilant) 60 MG CAP.BP 1 CAP PO DAILY GI (Reported) Diazepam 5 MG TABLET 1 TAB PO 4 TIMES/DAY PRN ANXIETY Folic Acid 1 MG TABLET 1 TAB PO DAILY SUPPLEMENT (Reported) Meloxicam (Mobic) 15 MG TABLET 1 TAB PO DAILY pain (Reported) Methotrexate 2.5 MG TABLET 3 TAB PO QWED PSORIATIC ARTHRITIS (Reported) Sertraline HCl (Zoloft) 100 MG TABLET 2 TAB PO DAILY depression Triage Note: PT BIBA FROM HOME FOR SEIZURE LIKE ACTIVITY. PT HAS HX OF PSEUDO SEIZURES AND FREQUENT ER VISITS. PER EMS THEY CAN USUALLY CALM HIM DOWN VERBALLY. UNABLE TO DO SO, PT WAS PUNCHING SELF AND WALL, AND SWINGING AT EMS. HE WAS GIVEN VERSED ON ROUTE. ON ARRIVAL PT IS RELAXED AND SLEEPY. NO RESPIRATORY DISTRESS NOTED. SEIZURE PADS IN PLACE. Triage Nurses Notes Reviewed? yes HPI: 47-year-old male comes in with seizure. He has a history of somatic seizures. He does not have epilepsy. The patient with a psychiatrist office. They were discussing a subject which is sensitive to him. Stress triggers his seizure. The patient started getting seizure-like activity. The physician and EMS tried to calm him down with the patient would not come down, he was given Versed and transported to the emergency room. The patient episode was witnessed by his . No trauma, fall or injury was reported. Patient reports some sore muscles but denies any specific pain. Past History Travel History Traveled to [place] past 21 day No Medical History Any Pertinent Medical History? 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 Yes Review of Systems Review of Systems Constitutional: Denies: no symptoms, see HPI, chills, diaphoresis. EENTM: Denies: see HPI, blurred vision, double vision. Respiratory: Denies: no symptoms, cough, hemoptysis. Cardiovascular: Denies: chest pain, edema, orthopena. GI: Denies: abdominal pain, bloating, constipation. Genitourinary: Denies: discharge, dysuria, frequency. Musculoskeletal: Reports: muscle pain. Skin: Denies: cysts, change in skin color, change in hair/nails. Neurological/Psychological: Denies: anxiety, ataxia. Physical Exam Physical Exam General Appearance: well developed/nourished, no apparent distress, alert, awake Head: atraumatic, normal appearance Eyes: Bilateral: PERRL, EOMI. Ears, Nose, Throat: normal pharynx, normal ENT inspection Neck: normal inspection, supple Respiratory: normal breath sounds, chest non-tender, no respiratory distress Cardiovascular: regular rate/rhythm Gastrointestinal: normal bowel sounds, soft, non-tender, no organomegaly Back: normal inspection, normal range of motion Extremities: normal inspection, normal capillary refill Neurologic/Psych: no motor/sensory deficits, awake, alert, oriented x 3 Skin: intact, normal color Core Measures ACS in differential dx? No CVA/TIA Diagnosis: No Sepsis Present: No Sepsis Focused Exam Completed? No Progress Differential Diagnoses . Plan of Care: Orders Procedure Date/time Status Regular Diet 08/01 D Active Initial ED EKG: none Comments: Patient in no distress, no signs of trauma, normal neurological exam. Old healing laceration on the left upper extremity. I think it is safe to go home, will discuss it with his psychiatrist. He has safety precautions at home for sleepwalking and his watches him at home. 163 Dr. Dia mcdonnell for discharge. Request I discussed the case with neurology. I went through the patient's records, he has had multiple CT scans including a bunch of them in December. He has had no recent trauma or injury. There is a note from Dr. Partida which recommends no antiepileptics and outpatient follow-up. 173 no luck contacting neurology at this time. The patient and family wishes to go home. They do not want to wait in the emergency room any longer. The patient is not homicidal, suicidal. The will lock the home with neumeric locks for which she does not know the codes to protect him from sleep walking. She will also for the patient with the GPS for safety. The patient will have no access to sharp instruments when he sleeping. The patient is not suicidal homicidal or intoxicated. He is making decisions and normal capacity. I will discharge him in the care of his . The and the patient have follow-up plan per the psychiatrist and a plan of action for the night for safety. They were sent in because the patient was having uncontrolled pseudoseizures which have now stopped. No indication for CT scan of the brain because this is the patient's chronic state. Departure Departure Time of Disposition: 1737 Disposition: HOME OR SELF CARE Condition: Stable Clinical Impression Primary Impression: Pseudoseizures Referrals: Mercedes Woods (PCP/Family) Additional Instructions: If there is any possibility of self-harm, return to the emergency room immediately better Make sure that the house is made safe. Use blocks to which the patient has no acute or new medical oxygen which she does not know codes Departure Forms: Customer Survey General Discharge Information Critical Care Note Critical Care Note Critical Care Time: non-applicable
== END 2018-08-01 17:47 ==
LOC: ERH 12:43
DX: F44.5 Conversion disorder with seizures or convulsions (principal); I10 Essential (primary) hypertension; F41.9 Anxiety disorder, unspecified; F32.9 Major depressive disorder, single episode, unspecified

== ENCOUNTER 2018-08-04 16:33 | Emergency (ER) | payer OTHER, MEDICARE ==
[2018-08-04 16:46] VITALS: BP 126/81
--- NOTE | 2018-08-04 16:59 | ED GENERAL ADULT ---
History of Present Illness General Chief Complaint: Suture Removal/Wound Recheck Stated Complaint: SUTURE REMOVAL Source: patient Exam Limitations: no limitations Vital Signs & Intake/Output Vital Signs & Intake/Output Vital Signs Date Time Temp Pulse Resp B/P B/P Pulse O2 O2 Flow FiO2 Mean Ox Delivery Rate 08/04 1646 97.7 76 18 126/81 98 Room Air Allergies Coded Allergies: hydroxychloroquine (From PLAQUENIL) (Intermediate, SWEATS AND CHILLS 12/22/16) venom-honey bee (BEE VENOM (HONEY BEE)) (Intermediate, LOCAL REACTION 12/22/16) atenolol (Mild, RASH 12/22/16) labetalol (Mild, RASH 12/22/16) pimozide (From ORAP) (ELEVATED HR 12/22/16) lorazepam (Severe, HALLUCINATIONS AND AGRESSIVE BEHAVIOR 12/22/16) bupropion (Intermediate, TACHYCARDIA, ANXIETY 12/22/16) divalproex sodium (From DEPAKOTE) (HALLUCINATIONS 10/03/17) haloperidol (MAKES HIM JUMPY 12/22/16) Reconcile Medications Cholecalciferol (Vitamin D3) (Vitamin D3) 2,000 UNIT CAPSULE 1 CAP PO DAILY VITAMIN SUPPORT (Reported) Dexlansoprazole (Dexilant) 60 MG CAP.BP 1 CAP PO DAILY GI (Reported) Diazepam 5 MG TABLET 1 TAB PO 4 TIMES/DAY PRN ANXIETY Folic Acid 1 MG TABLET 1 TAB PO DAILY SUPPLEMENT (Reported) Meloxicam (Mobic) 15 MG TABLET 1 TAB PO DAILY pain (Reported) Methotrexate 2.5 MG TABLET 3 TAB PO QWED PSORIATIC ARTHRITIS (Reported) Sertraline HCl (Zoloft) 100 MG TABLET 2 TAB PO DAILY depression Triage Nurses Notes Reviewed? yes HPI: 47 yo male presents to the ED for suture removal of the distal Left forarm. Pt states he cut himself prior to sutures being placed approximately 1.5 weeks ago. Patient states he was started on a new segment which caused him to sleep walk and cut himself with a kitchen knife. He has since DC'd this medication, has no current thoughts of hurting himself or suicide ideation. He denies N/V/Fevers. (Ab Hatfield) Past History Travel History Traveled to [place] past 21 day No Medical History Any Pertinent Medical History? none Neurological: PSEUDO SEIZURES SINCE 20YO EENT: NONE Cardiovascular: hypertension Respiratory: NONE Gastrointestinal: GERD Hepatic: NONE Renal: ENLARGED PROSTATE Musculoskeletal: psoariatic arthritis, CARPAL TUNNEL Psychiatric: anxiety, depression, CONVERSION DISORDER PTSD OCD Endocrine: NONE Blood Disorders: NONE Cancer(s): NONE TRANSPORTATION AIDE/Reproductive: NONE History of MRSA: No History of VRE: No History of CDIFF: No Tetanus Vaccine: 07/25/18 Surgical History Surgical History: cholecystectomy Psychosocial History Who do you live with Family What is your primary language Wallisian Family History Family History, If Any: Relation not specified for: *No pertinent family history Hx Contributory? No (Ab Hatfield) Review of Systems Review of Systems Constitutional: Denies: chills, diaphoresis, fever. EENTM: Reports: no symptoms. Respiratory: Denies: cough, hemoptysis, short of breath, wheezing. Cardiovascular: Denies: chest pain, palpitations, syncope. GI: Reports: no symptoms. Genitourinary: Reports: no symptoms. Musculoskeletal: Denies: joint pain, joint swelling, muscle pain, muscle stiffness. Skin: Denies: erythema. Neurological/Psychological: Denies: anxiety, confusion, depressed, emotional problems, numbness, paresthesia. All Other Systems: Reviewed and Negative (Ab Hatfield) Physical Exam Physical Exam General Appearance: well developed/nourished, no apparent distress, alert, awake Head: atraumatic, normal appearance Eyes: Bilateral: normal appearance. Respiratory: normal breath sounds, no respiratory distress Extremities: normal inspection, normal range of motion, no edema Neurologic/Psych: no motor/sensory deficits, awake, alert, oriented x 3 Skin: intact, normal color, warm/dry Core Measures ACS in differential dx? No CVA/TIA Diagnosis: No Sepsis Present: No Sepsis Focused Exam Completed? No (Ab Hatfield) Progress Differential Diagnoses I considered the following diagnoses in my evaluation of the patient: [ Laceration, cellulitis,] Plan of Care: 16 sutures were removed from 's distal left forearm. Laceration sites were clean dry and intact with no surrounding erythema or fluctuance. The areas were cleaned with alcohol swabs and bandages were placed. Patient instructed to clean with soap and water and to keep the incision sites clean and dry. Initial ED EKG: none (Ab Hatfield) Departure Departure Disposition: HOME OR SELF CARE Condition: Stable Clinical Impression Primary Impression: Laceration Referrals: Mercedes Woods (PCP/Family) Departure Forms: Customer Survey General Discharge Information (Ab Hatfield) PA/PRIMARY SCHOOL TEACHER Co-Sign Statement Statement: ED Attending supervision documentation- I saw and evaluated the patient. I have also reviewed all the pertinent lab results and diagnostic results. I agree with the findings and the plan of care as documented in the PA's/PRIMARY SCHOOL TEACHER's documentation. x I have reviewed the ED Record and agree with the PA's/PRIMARY SCHOOL TEACHER's documentation. [] Additions or exceptions (if any) to the PAs/PRIMARY SCHOOL TEACHER's note and plan are summarized below: [] (Colton HERNANDEZ,Ernie) Critical Care Note Critical Care Note Critical Care Time: non-applicable (Ab Hatfield) ED Attending Observation Initial Observation Note: I have seen and personally examined MICHAEL LAGUNAS on 08/04/18 at 1704. I agree with the current emergency department documentation. The disposition (admission or discharge) is uncertain at this time, he needs a period of observation for the following reason(s): The ED Nurse caring for this patient has been personally informed as to what the patient is being observed for. (Ab Hatfield)
== END 2018-08-04 17:02 ==
LOC: ERH 16:33
DX: Z48.02 Encounter for removal of sutures (principal)

== ENCOUNTER 2018-08-06 14:26 | Emergency (ER) | payer OTHER, MEDICARE ==
[~2018-08-06] VITALS: Ht 190.5 cm; Wt 145.2 kg
[2018-08-06 14:32] VITALS: BP 144/88
--- NOTE | 2018-08-06 14:56 | ED GENERAL ADULT ---
History of Present Illness General Chief Complaint: Suture Removal/Wound Recheck Stated Complaint: WOUND CHECK ?STAPLE REMOVAL Source: patient Exam Limitations: no limitations Vital Signs & Intake/Output Vital Signs & Intake/Output Vital Signs Date Time Temp Pulse Resp B/P B/P Pulse O2 O2 Flow FiO2 Mean Ox Delivery Rate 08/06 1432 98.4 81 18 144/88 98 Room Air Allergies Coded Allergies: hydroxychloroquine (From PLAQUENIL) (Intermediate, SWEATS AND CHILLS 12/22/16) venom-honey bee (BEE VENOM (HONEY BEE)) (Intermediate, LOCAL REACTION 12/22/16) atenolol (Mild, RASH 12/22/16) labetalol (Mild, RASH 12/22/16) pimozide (From ORAP) (ELEVATED HR 12/22/16) lorazepam (Severe, HALLUCINATIONS AND AGRESSIVE BEHAVIOR 12/22/16) bupropion (Intermediate, TACHYCARDIA, ANXIETY 12/22/16) divalproex sodium (From DEPAKOTE) (HALLUCINATIONS 10/03/17) haloperidol (MAKES HIM JUMPY 12/22/16) Reconcile Medications Cholecalciferol (Vitamin D3) (Vitamin D3) 2,000 UNIT CAPSULE 1 CAP PO DAILY VITAMIN SUPPORT (Reported) Dexlansoprazole (Dexilant) 60 MG CAP.BP 1 CAP PO DAILY GI (Reported) Diazepam 5 MG TABLET 1 TAB PO 4 TIMES/DAY PRN ANXIETY Folic Acid 1 MG TABLET 1 TAB PO DAILY SUPPLEMENT (Reported) Meloxicam (Mobic) 15 MG TABLET 1 TAB PO DAILY pain (Reported) Methotrexate 2.5 MG TABLET 3 TAB PO QWED PSORIATIC ARTHRITIS (Reported) Sertraline HCl (Zoloft) 100 MG TABLET 2 TAB PO DAILY depression Triage Note: 47 YO MALE TO ER FOR EVAL OF ?SUTURE REMOVAL FROM L SHOULDER. STATES "I HAVE A SEIZURE DISORDER AND I KEEP FALLING ON THEM AND THEY HURT, CAN THEY PUT SOMETHING ELSE THERE" STATES BALTA WERE PLACED ON MONDAY AM. Triage Nurses Notes Reviewed? yes Onset: Abrupt Duration: day(s): Timing: constant HPI: 47-year-old male with a history of pseudoseizures, hypertension, BPH, psoriatic arthritis, anxiety, depression, conversion disorder presenting for staple removal. Patient was seen in the emergency department 4 days ago status post self-inflicted knife wounds to his left upper extremity. Patient reports that he had a nightmare during which time he somehow got a hold of a knife and cut himself multiple times in the left arm in his sleep. He denies intentional injury. At that time he had multiple balta placed to this laceration. He presents to the emergency department today because he has multiple pseudoseizures daily and continues striking his balta during the seizures. Would like to be evaluated for staple removal. Denies fevers, wound drainage, numbness, paresthesias. (Yuko Enriquez) Past History Travel History Traveled to [place] past 21 day No Medical History Any Pertinent Medical History? see below for history Neurological: PSEUDO SEIZURES SINCE 20YO EENT: NONE Cardiovascular: hypertension Respiratory: NONE Gastrointestinal: GERD Hepatic: NONE Renal: ENLARGED PROSTATE Musculoskeletal: psoariatic arthritis, CARPAL TUNNEL Psychiatric: anxiety, depression, CONVERSION DISORDER PTSD OCD Endocrine: NONE Blood Disorders: NONE Cancer(s): NONE CRIMINOLOGY PROFESSOR/Reproductive: NONE History of MRSA: No History of VRE: No History of CDIFF: No Tetanus Vaccine: 07/25/18 Surgical History Surgical History: cholecystectomy Psychosocial History Who do you live with Family What is your primary language Japanese Tobacco Use: Never used Family History Family History, If Any: Relation not specified for: *No pertinent family history Hx Contributory? No (Yuko Enriquez) Review of Systems Review of Systems Constitutional: Reports: no symptoms. EENTM: Reports: no symptoms. Respiratory: Reports: no symptoms. Cardiovascular: Reports: no symptoms. GI: Reports: no symptoms. Genitourinary: Reports: no symptoms. Musculoskeletal: Reports: no symptoms. Skin: Reports: see HPI. Neurological/Psychological: Reports: no symptoms. Hematologic/Endocrine: Reports: no symptoms. Immunologic/Allergic: Reports: no symptoms. All Other Systems: Reviewed and Negative (Yuko Enriquez) Physical Exam Physical Exam General Appearance: well developed/nourished, no apparent distress, alert, awake Comments: Gen.: Well-nourished, well-developed, no acute distress. Head: Normocephalic, atraumatic. Eyes: Normal inspection bilaterally Ears: Normal inspection bilaterally Nose: Normal inspection Neck: Normal inspection Lungs: clear to auscultation bilaterally, normnal breath sounds Heart: regular rate and rhythm Abdomen: soft and non-tender Extremities: Several lacerations to left upper extremity with numerous balta in place. The distal ends of the wound have healed with good scab formation, the proximal/center areas require additional healing time. There is no erythema or purulent drainage per Neurologic: alert and oriented x3, steady gait Skin: warm and dry Psychiatric: Normal mood and affect, no apparent delusions or hallucinations, behavior appropriate Core Measures ACS in differential dx? No CVA/TIA Diagnosis: No Sepsis Present: No Sepsis Focused Exam Completed? No (Yuko Enriquez) Progress Differential Diagnoses I considered the following diagnoses in my evaluation of the patient: [Staple removal, will concern for wound infection] Plan of Care: Patient had several ablta removed from the distal ends of the wound which were well-healed. Several balta remain in place to the proximal region/center of the wound which requires additional wound healing. He will follow-up in another 4-5 days for evaluation for final staple removal. After staple removal patient began to experience what appeared to be a suitable seizure. He had full body tremors, but remained conscious and was intermittently talking during the episode. He will be signed out to the ED attending pending reevaluation. Plan is likely for discharge home Initial ED EKG: none (Yuko Enriquez) Departure Departure Disposition: HOME OR SELF CARE Condition: Stable Clinical Impression Primary Impression: Removal of staple Secondary Impressions: Visit for wound check Referrals: Mercedes Woods (PCP/Family) Additional Instructions: Return to the emergency department in 5 days for another wound check and staple removal. Keep the wound clean and dry. Return to the emergency department sooner for any new or worsening symptoms per Departure Forms: Customer Survey General Discharge Information (Yuko Enriquez) PA/PERFORMANCE IMPROVEMENT COORDINATOR Co-Sign Statement Statement: ED Attending supervision documentation- [] I saw and evaluated the patient. I have also reviewed all the pertinent lab results and diagnostic results. I agree with the findings and the plan of care as documented in the PA's/PERFORMANCE IMPROVEMENT COORDINATOR's documentation. [X] I have reviewed the ED Record and agree with the PA's/PERFORMANCE IMPROVEMENT COORDINATOR's documentation. [] Additions or exceptions (if any) to the PAs/PERFORMANCE IMPROVEMENT COORDINATOR's note and plan are summarized below: [] (Bucky HERNANDEZ,Edis Pagan) Critical Care Note Critical Care Note Critical Care Time: non-applicable (Mitra TENORIO,Yuko)
== END 2018-08-06 16:09 ==
LOC: ERH 14:26
DX: Z48.02 Encounter for removal of sutures (principal)